=== PATIENT | female | born 1935 | race Caucasian/White ===

== ENCOUNTER 2017-01-23 08:50 | Outpatient (CLI) | payer MEDICARE ==
--- NOTE | 2017-01-23 10:02 | MMO ---
BILATERAL SCREENING MAMMOGRAMS: Date: 01/23/17 Comparison made to prior exams from 2016 and 2014. This patient's mammogram was interpreted with the assistance of computer-aided detection. FINDINGS: Scattered fibroglandular densities. Vascular calcifications. No evidence of mass or distortion. No i nterval change seen. Recommend one year follow-up. IMPRESSION: BIRADS 2: Benign Finding(s) POS: [facility]
== END 2017-01-23 08:51 | disposition home or self-care (01) ==
LOC: MAMMO 08:50
PROVIDERS: ATTEND Internal Medicine
DX: Z12.31 Encounter for screening mammogram for malignant neoplasm of breast (principal)
CPT/HCPCS: 77067; G0202

== ENCOUNTER 2017-08-09 12:45 | Outpatient (CLI) | payer MEDICARE ==
--- NOTE | 2017-08-09 14:58 | CT ---
HIGH RESOLUTION CHEST CT: History: Abnormal chest radiograph. Evaluate for lung disease. Comparison: None. Technique: Supine and prone views of the chest were performed utilizing a high resolution protocol. FINDINGS: Visualized mediastinum is unremarkable. Small amount of pericardial fluid. Heart size upper normal. A therosclerosis of the aorta and pulmonary arteries identified. Visualized upper solid organs are unremarkable. Patchy ground glass opacities throughout the lung parenchyma. Septal thickening is noted throughout t he lung parenchyma. Bronchiectasis in both lower lobes and the right upper lobe is identified. No def inite suspicious masses, pneumothorax or pleural effusion. Visualized trachea and central bronchi are patent. IMPRESSION: Patchy ground glass opacities, septal thickening and bronchiectasis. There is evidence for pulmonary fibrosis. POS: [facility]
== END 2017-08-09 12:46 | disposition home or self-care (01) ==
LOC: CT 12:45
PROVIDERS: ATTEND Internal Medicine
DX: J84.9 Interstitial pulmonary disease, unspecified (principal); J84.10 Pulmonary fibrosis, unspecified; R91.8 Other nonspecific abnormal finding of lung field; J47.9 Bronchiectasis, uncomplicated; J98.4 Other disorders of lung
CPT/HCPCS: 71250; 94060; 94727; 94729

== ENCOUNTER 2017-10-09 12:39 | Inpatient (IN) | payer MEDICARE ==
[2017-10-09] MEDS ORDERED: Fentanyl 100 MCG/2 ML VIAL ONE (13:05)
[2017-10-09 13:35] LABS: Bilirubin Negative (Negative); Blood, Urine Large (Negative); Clarity CLOUDY (Clear); Glucose, Urine (Dipstick) Negative (Negative); Leukocyte Large (Negative); Nitrite Positive (Negative); Protein, Urine (Dipstick) 30 mg/dL (Neg-Trace); Specific Gravity, Urine 1.018 (1.002-1.036); Urobilinogen 0.2 mg/dL (0.2-1.0); pH, Urine 5.5 (5.0-9.0)
[2017-10-09 13:38] LABS: Bacteria/HPF 4+ HPF (None Seen); Hyaline Casts/LPF 0-3 HYALINE CAST LPF (0-3 Hyaline); Squamous Epithelial 0-3 HPF (0-3)
[2017-10-09 13:46] LABS: #Basophils 0.1 thou/uL (0.0-0.2); #Eosinphils 0.4 thou/uL (0.0-0.7); #Lymphocytes 1.3 thou/uL (1.20-3.40); #Monocytes 0.8 thou/uL (0.11-0.59); %Basophils 0.4 % (0.0-1.0); %Eosinophils 3.8 % (0.0-10.0); %Lymphocytes 10.9 % (21.0-51.0); %Monocytes 6.6 % (0.0-10.0); %Neutrophils 78.2 % (42.0-75.0); Hemoglobin 11.2 g/dL (12.0-16.0); Mean Corpuscular HGB CONC 33.3 g/dL (32.0-36.0); Mean Corpuscular Hemoglobin 33.4 pg (27.0-31.0); Mean Platelet Volume 6.8 fL (7.4-10.4); Platelet Count 501 thou/uL (130-400); RBC Distribution Width 12.1 % (11.5-14.5); Red Blood Cell (RBC) Count 3.35 mill/uL (4.20-5.40); White Blood Cell (WBC) Count 11.5 thou/uL (4.8-10.8)
[2017-10-09 13:57] LABS: Prothrombin Time 61.7 SEC (12.0-14.7)
[2017-10-09 14:00] LABS: INR-International Normal Ratio 7.2
[2017-10-09 14:01] LABS: PTT 120.5 SEC (22.9-36.1)
[2017-10-09 14:10] LABS: ALT (SGPT) 28 U/L (8-55); AST (SGOT) 17 U/L (5-34); Albumin 3.7 g/dL (3.4-4.8); Alkaline Phosphatase 84 U/L (40-150); Anion Gap 16 mmol/L (10-20); BUN (Urea Nitrogen) 90 mg/dL (9.8-20.1); Bilirubin, Total 0.3 mg/dL (0.2-1.2); CK (CPK) 23 U/L (29-168); Calc. Creatinine Clearance 0 mL/min (70-130); Calcium 9.6 mg/dL (7.8-10.44); Carbon Dioxide 27 mmol/L (23-31); Chloride 96 mmol/L (98-107); Estimated GFR-MDRD 22; Globulin 4.4 g/dL (2.4-3.5); Glucose 117 mg/dL (83-110); Lipase 35 U/L (8-78); Potassium 3.8 mmol/L (3.5-5.1); Protein, Total 8.1 g/dL (6.0-8.3); Sodium 135 mmol/L (136-145)
[2017-10-09 14:14] LABS: CKMB 0.4 ng/mL (0-6.6); Troponin I 0.014 ng/mL (< 0.028)
--- NOTE | 2017-10-09 14:21 | RAD ---
PORTABLE CHEST ONE VIEW: Date: 10-09-17 Time: 1:10 p.m. History: Fall, injury. Chest pain. FINDINGS/IMPRESSION: Comparison is made with exam of 06-14-12. The heart is enlarged. The aorta is tortuous. The lungs are well expanded with chronic changes. There is no lobar consolidation, pneumothoraces, kenia pulmonary edema or pleural effusions are seen. POS: [facility]
[2017-10-09] MEDS ORDERED: Meropenem 1 GM in Sodium Chloride 0.9% 100 ML IVPB SCH ×2 (15:45→22:00)
--- NOTE | 2017-10-09 15:56 | CT ---
CT CHEST AND ABDOMEN AND PELVIS WITHOUT CONTRAST: Date: 10/09/17 Multiple axial tomograms obtained through chest, abdomen, and pelvis. Trauma protocol was followed. I V contrast was held due to renal status. INDICATION: Trauma. Fall with injury to chest, abdomen, and back. FINDINGS: CT CHEST: Chronic lung parenchymal changes are noted. There is hyperexpansion. There are bullous changes. Inter stitial thickening is seen in the periphery of both lungs and there is chronic fibrotic stranding. No pneumothorax, effusion, or focal infiltrate seen. Mediastinum is unremarkable. Review of the pneumot horax shows evidence of old, healed right rib fractures, both anteriorly and posteriorly. There are several left anterior rib fractures which appear acute. There appear to be subtle fractures involving the anterior left third, fourth, and fifth ribs. IMPRESSION: 1. Evidence of acute or subacute fractures involving the anterior left third, fourth, and fifth ribs . 2. Chronic lung parenchymal changes as described. CT ABDOMEN AND PELVIS: Liver, spleen, and pancreas are unremarkable. Adrenal glands and kidneys unremarkable. Bowel loops un remarkable. Large amount of stool throughout the colon. Prominent stool in the rectum may represent c onstipation or impaction. Urinary bladder is distended and unremarkable. Aorta is normal caliber. No free fluid or blood in the abdomen. Prominent stool in the rectum is seen with rectal dimension measured at over 5.0 cm. There is mild mu ral thickening at the rectosigmoid and there is surrounding fat stranding which may represent inflamm ation. This could represent stercoral colitis. IMPRESSION: No acute intra-abdominal injury. Prominent stool throughout the rectum. There is mural thickening and surrounding fat inflammatory change at the rectosigmoid. Large amount of stool in dilated rectum. St ercoral colitis should be considered. CT THORACIC AND LUMBAR SPINE: Thoracic and lumbar vertebra maintain height and alignment. Mild chronic appearing wedging is seen in the thoracic spine. There is no evidence of acute compression deformity or fracture. IMPRESSION: No evidence of acute thoracic or lumbar vertebral fracture. POS: [facility]
[2017-10-09] MEDS ORDERED: Bisacodyl 5 MG TAB PO PRN (16:17)
[2017-10-09] MEDS ORDERED: Mag-Al 1200 mg/1200 mg/30 ML UDCUP PO PRN (16:17)
[2017-10-09] MEDS ORDERED: HYDROcodone/Acetaminophen 5/325 mg Tablet PO PRN (16:17)
[2017-10-09] MEDS ORDERED: Milk Of Magnesia 30 ML UDCUP PO PRN (16:17)
[2017-10-09] MEDS ORDERED: Senokot 8.6 MG TAB PO PRN (16:17)
[2017-10-09] MEDS ORDERED: Calcium Carbonate 500 MG ChewTAB PO PRN (16:17)
[2017-10-09] MEDS ORDERED: Ondansetron HCl/PF 4 MG/2 ML Vial IVP PRN (16:18)
[2017-10-09] MEDS ORDERED: Benzonatate 100 MG CAP PO PRN (16:18)
[2017-10-09] MEDS ORDERED: Diabetic Tussin 200 MG/10 ML UDCUP PO PRN (16:18)
[2017-10-09] MEDS ORDERED: hydrALAZINE 20 MG/ML VIAL SLOW IVP PRN (16:18)
[2017-10-09] MEDS ORDERED: Loratadine 10 MG TAB PO PRN (16:18)
[2017-10-09] MEDS ORDERED: traMADol HCl 50 MG TAB PO PRN (16:18)
[2017-10-09] MEDS ORDERED: Nitroglycerin 0.4 MG TAB (25 Tab Bottle) SL PRN (16:18)
--- NOTE | 2017-10-09 17:14 | CT ---
CT BRAIN WITHOUT CONTRAST: HISTORY: Fall. Trauma. Patient on Coumadin. COMPARISON: CT brain from 08/17/2016. FINDINGS: No acute territorial infarct or hemorrhage. No midline shift or mass effect. Ventricular size and e xtraaxial CSF spaces are normal for age. The calvarium is intact. The paranasal sinuses and mastoids are relatively clear. IMPRESSION: No acute post traumatic intracranial sequelae. POS: [facility]
--- NOTE | 2017-10-09 17:15 | HP ---
PRIMARY CARE PHYSICIAN: Dr. Pedro Saucedo. CHIEF COMPLAINT: Generalized weakness with constipation. HISTORY OF PRESENTING ILLNESS: Ms. Singleton is an 81-year-old female with past medical history of c hronic atrial fibrillation, status post ablation who is on Coumadin, as well as hypertension, dyslipi demia, and anxiety who presented to the emergency room with the above-mentioned complaint. History i s mainly obtained by the patient herself and electronic medical records have been reviewed. Case has been discussed with admitting ER physician, Dr. Flores. Areli reports that normally she is able to take care of herself and is quite independent; however, she fell 2 weeks ago. She does not really remember how she fell and cannot tell me if she passed out or not. She reported that she was down f or about an hour or half before she was able to call for help. She has been having right-sided ribca ge pain since then. She reports that she had one or two episodes of vomiting one day before the epis ode of falling. She has no fever, chills, chest pain. She is chronically short of breath and is und er the care of associate relations specialist, Dr. Moses and was told that she has pulmonary fibrosis. She denies a ny cough. She does report that she had severe constipation for which she took a bunch of laxatives a nd had episodes of diarrhea a few days ago. She has slowly been getting better. She is on Coumadin for her chronic atrial fibrillation and went to the [facility] today and was sent to the emergency room because it was very high. Upon presentation to the emergency room, her INR was found to be 7.2. Her hemoglobin was stable at 1 1.2 and she does not have any overt bleed. Her serum chemistries were consistent with acute renal in sufficiency with BUN of 90, creatinine of 2.16. Her cardiac enzymes and lactic acid was unremarkable . BNP was normal. Urinalysis suggestive of significant urinary tract infection. She was given IV f luids and IV antibiotics. A chest x-ray and CT scan of the chest, abdomen, and pelvis was done. The findings are consistent with constipation as well as left-sided third, fourth, and fifth rib fractur es. She does not have any evidence of intraabdominal bleed, pneumothorax or hemothorax. She is quit e hypertensive in the emergency room. Otherwise, she is being admitted to the hospital for suprather apeutic INR as well as urinary tract infection. PAST MEDICAL HISTORY: 1. Hypertension. 2. Dyslipidemia. 3. Chronic paroxysmal atrial fibrillation, status post ablation at least 3 times per the patient. 4. Anxiety. PAST SURGICAL HISTORY: 1. Rotator cuff surgery. 2. Hysterectomy. 3. Cataract surgery. 4. Radiofrequency ablation. ALLERGIES: ADHESIVE TAPE. CURRENT MEDICATIONS: Further need to be confirmed, but as per the ER record, she takes clonidine 0.1 mg daily and lisinopril 20 mg b.i.d. CODE STATUS: FULL CODE. Discussed with the patient in detail. FAMILY HISTORY: Significant for coronary artery disease. SOCIAL HISTORY: The patient lives alone and is independent, but according to her daughters present i n the room, she is not very active. She has no history of drug, tobacco or alcohol abuse. REVIEW OF SYSTEMS: A 12-point review of systems was done and it is negative except for those mention ed in the history and physical. LABORATORY DATA AND IMAGING DATA: CBC showed WBCs at 11.5, hemoglobin 11.2 with baseline hemoglobin around 12-13, platelet count 501, neutrophils 78%, INR 7.2, PTT 120. Serum chemistry: Sodium 135, c hloride 96, BUN 19, creatinine 2.16, blood sugar 117. Creatinine kinase is 23. Lipase normal. Card iac enzymes normal. Lactic acid normal. Urinalysis shows multiple wbc's and bacteria among others. CT scan of the chest, abdomen, and pelvis shows left-sided rib fractures and significant amount of s tool in the colon, otherwise no acute changes. Chest x-ray by my review has no evidence of pleural e ffusion, edema or infiltrate. Twelve lead EKG by my review shows normal sinus rhythm at 71 beats per minute without any acute ST or T-wave changes. PHYSICAL EXAMINATION: VITAL SIGNS: Upon presentation, blood pressure 156/65, pulse of 77, saturating 93% on room air, resp irations 16 and temperature 98.1. GENERAL: She has no acute distress, appears stated age and frail. Daughters are present at bedside. HEENT: Mucous membranes are slightly dry. No oropharyngeal exudate or erythema. Head is normocepha lic, atraumatic. Pupils are equal and reactive to light and accommodation. Extraocular movement int act. NECK: Supple without any lymphadenopathy, JVD or bruit. CHEST: Clear to auscultation without any wheezing, rales or rhonchi. Rhythm is regular without any murmur, rubs or gallops. She is tender to palpation in the left anterior chest. ABDOMEN: Soft, nontender, nondistended with positive bowel sounds. EXTREMITIES: Free of any cyanosis, clubbing, or edema. NEUROLOGIC: Examination is nonfocal. SKIN: Free of any rashes or bruises. PSYCHIATRIC: Anxiety noticed. IMPRESSION AND PLAN: 1. Sepsis secondary to urinary tract infection. The patient will be admitted to the hospital on IV antibiotics. We will start her on IV fluids. Blood cultures have been obtained. We will also obtai n culture of the urine and adjust antibiotics based on the sensitivity. She has received meropenem i n the emergency room and we will continue the same. 2. Acute renal insufficiency secondary to ongoing diarrhea, poor p.o. intake and dehydration. We wi ll hold her lisinopril for now and start her on IV fluids and avoid any nephrotoxic medications. 3. Uncontrolled hypertension. The patient's blood pressure has shot up to systolic 190s over diasto lic of 100s. She will be started back on her home medications once confirmed and meanwhile we will u se p.r.n. antihypertensives. 3. Supratherapeutic INR. We will hold the Coumadin for now and monitor INR on a daily basis. No ev idence of overt bleed at this time. 4. Fall. We will also check a head CT to rule out any bleed, but that has happened about 2 weeks ag o. The patient is asymptomatic. 5. Rib fractures, medical management. 6. Hypertension, as above. Resume home medications. 7. History of chronic paroxysmal atrial fibrillation, currently normal sinus rhythm and status post ablation. Hold her Coumadin for obvious reasons. Restart rest of the medications as permitted and o nce confirmed 8. Code status: FULL CODE. Discussed with the patient. 9. Deep venous thrombosis and gastrointestinal prophylaxis in the form of sequential compression dev ices and Pepcid b.i.d. Add p.r.n. medication orders. DISPOSITION: Ms. Singleton is currently being admitted to hospital for sepsis, supratherapeutic INR and acute renal insufficiency after she has sustained a fall 2 weeks ago. Estimated length of stay a t least 2-3 midnights. Further management will depend upon her clinical course.
[2017-10-09 19:53] VITALS: BMI 22.9
[2017-10-09] MEDS: Sodium Chloride 0.9% 1,000 ML IV SCH (20:59)
[2017-10-09] MEDS: Docusate 100 MG CAP PO SCH (21:00)
[2017-10-09] MEDS: Famotidine 20 MG TAB PO SCH (21:00)
[2017-10-09] MEDS: cloNIDine 0.1 MG TAB PO PRN (21:01)
[2017-10-09] MEDS: Acetaminophen 325 MG TAB PO PRN (21:07)
[2017-10-10] MEDS: Meropenem 500 MG in Sodium Chloride 0.9% 100 ML IVPB SCH ×2 (03:02→16:46)
[2017-10-10] MEDS: Acetaminophen 325 MG TAB PO PRN ×4 (03:02→21:24)
[2017-10-10] MEDS: Sodium Chloride 0.9% 1,000 ML IV SCH ×2 (03:07→21:20)
[2017-10-10 05:12] LABS: #Basophils 0.1 thou/uL (0.0-0.2); #Eosinphils 0.5 thou/uL (0.0-0.7); #Lymphocytes 1.7 thou/uL (1.20-3.40); #Neutrophils 5.4 thou/uL (1.40-6.50); %Basophils 0.9 % (0.0-1.0); %Eosinophils 6.1 % (0.0-10.0); %Lymphocytes 19.6 % (21.0-51.0); %Monocytes 11.7 % (0.0-10.0); %Neutrophils 61.7 % (42.0-75.0); Hemoglobin 10.3 g/dL (12.0-16.0); Mean Corpuscular HGB CONC 33.7 g/dL (32.0-36.0); Mean Corpuscular Hemoglobin 33.7 pg (27.0-31.0); Mean Corpuscular Volume 99.9 fL (78.0-98.0); Mean Platelet Volume 6.7 fL (7.4-10.4); Platelet Count 452 thou/uL (130-400); RBC Distribution Width 12.2 % (11.5-14.5); Red Blood Cell (RBC) Count 3.05 mill/uL (4.20-5.40); White Blood Cell (WBC) Count 8.8 thou/uL (4.8-10.8)
[2017-10-10 05:16] LABS: Prothrombin Time 56.8 SEC (12.0-14.7)
[2017-10-10 05:20] LABS: INR-International Normal Ratio 6.5
[2017-10-10 05:32] LABS: Anion Gap 14 mmol/L (10-20); BUN (Urea Nitrogen) 68 mg/dL (9.8-20.1); Calc. Creatinine Clearance 25 mL/min (70-130); Calcium 8.9 mg/dL (7.8-10.44); Carbon Dioxide 25 mmol/L (23-31); Chloride 101 mmol/L (98-107); Estimated GFR-MDRD 29; Glucose 84 mg/dL (83-110); Potassium 3.6 mmol/L (3.5-5.1); Sodium 136 mmol/L (136-145)
[2017-10-10] MEDS ORDERED: Prevnar 13-Val Conj/PF 0.5 ML SYRINGE IM ONE (09:00)
[2017-10-10] MEDS ORDERED: cloNIDine 0.1 MG TAB PO PRN (09:04)
[2017-10-10] MEDS: cloNIDine 0.1 MG TAB PO PRN (10:08)
[2017-10-10] MEDS: Docusate 100 MG CAP PO SCH ×2 (13:02→21:22)
[2017-10-10] MEDS ORDERED: diphenhydrAMINE 25 MG CAP PO PRN (13:38)
[2017-10-10] MEDS ORDERED: Melatonin 3 MG TAB PO PRN (13:38)
--- NOTE | 2017-10-10 13:41 | PDOC.PN ---
- Subjective Encounter Start Date: 10/10/17 Encounter Start Time: 13:40 Subjective: feels much better.eating better . still constipated.no SOB/CP/ palpiations - Objective MAR Reviewed: Yes Vital Signs & Weight: Vital Signs (12 hours) Temp Pulse Resp BP Pulse Ox 10/10/17 07:32 98.1 F 69 16 174/68 H 99 10/10/17 03:45 98.2 F 64 17 131/63 96 Weight Weight 136 lb 12.8 oz I&O: 10/09/17 10/10/17 10/11/17 06:59 06:59 06:59 Intake Total 1800 Output Total 900 Balance 900 Result Diagrams: 10/10/17 04:43 10/10/17 04:43 Additional Labs: Microbiology 10/09/17 13:39 Venous blood - Right Hand Blood Culture - Preliminary Specimen has been received and culture in progress. No Growth to date. 10/09/17 13:38 Venous blood - Right Arm Blood Culture - Preliminary Specimen has been received and culture in progress. No Growth to date. 10/09/17 13:11 Urine clean catch Urine Culture - Preliminary Escherichia coli Laboratory Tests 10/09/17 10/09/17 10/10/17 13:38 13:39 04:43 INR 7.2 H* 6.5 H* Creatinine 2.16 H 10/10/17 04:43 INR Creatinine 1.70 H labs reviewed Phys Exam - Physical Examination Constitutional: NAD HEENT: PERRLA, moist MMs, sclera anicteric, oral pharynx no lesions Neck: no nodes, no JVD, supple, full ROM Respiratory: no wheezing, no rales, no rhonchi, wheezing present, clear to auscultation bilateral Cardiovascular: RRR, no significant murmur, no rub Gastrointestinal: soft, non-tender, no distention, positive bowel sounds Musculoskeletal: no edema, pulses present Neurological: non-focal, normal sensation, moves all 4 limbs Psychiatric: normal affect, A&O x 3 Skin: no rash Dx/Plan (1) Sepsis Code(s): A41.9 - SEPSIS, UNSPECIFIED ORGANISM Status: Acute (2) UTI (urinary tract infection) Status: Acute (3) RAFA (acute kidney injury) Code(s): N17.9 - ACUTE KIDNEY FAILURE, UNSPECIFIED Status: Acute (4) Supratherapeutic INR Code(s): R79.1 - ABNORMAL COAGULATION PROFILE Status: Acute (5) Atrial fibrillation Code(s): I48.91 - UNSPECIFIED ATRIAL FIBRILLATION Status: Chronic (6) Benign hypertension Code(s): I10 - ESSENTIAL (PRIMARY) HYPERTENSION Status: Chronic (7) Dyslipidemia Code(s): E78.5 - HYPERLIPIDEMIA, UNSPECIFIED Status: Chronic (8) Osteopenia Code(s): M85.80 - OTH DISRD OF BONE DENSITY AND STRUCTURE, UNSPECIFIED SITE Status: Chronic (9) Seizure disorder Code(s): G40.909 - EPILEPSY, UNSP, NOT INTRACTABLE, WITHOUT STATUS EPILEPTICUS Status: Chronic (10) Fall at home Code(s): W19.XXXA - UNSPECIFIED FALL, INITIAL ENCOUNTER; Y92.009 - UNSP PLACE IN [facility] RESIDENCE [facility] Status: Acute (11) Closed rib fracture Code(s): S22.39XA - FRACTURE OF ONE RIB, UNSP SIDE, INIT FOR CLOS FX Status: Acute Qualifiers: Encounter type: initial encounter Laterality: right - Plan continue antibiotics, PT/OT, out of bed/ambulate, DVT proph w/SCDs INR improving. cont to monitor daily.Cont to hold coumadin for now -: cont empric ABx .E.coli on prelim urine Cx -: renal Fx improving. cont IVF.SRIKANTH-I and HCTZ on hold -: restart coreg,amlodipine & clinidine .BP high.monitor -: OT,PT.tele monitoring.unclear if syncope or not * . Review of Systems - Review of Systems Constitutional: weakness. negative: fever, chills, sweats, malaise, other Respiratory: negative: Cough, Dry, Shortness of Breath, Hemoptysis, SOB with Excertion, Pleuritic Pain, Sputum, Wheezing Cardiovascular: negative: chest pain, palpitations, orthopnea, paroxysmal nocturnal dyspnea, edema, light headedness, other Gastrointestinal: negative: Nausea, Vomiting, Abdominal Pain, Diarrhea, Constipation, Melena, Hematochezia, Other Genitourinary: negative: Dysuria, Frequency, Incontinence, Hematuria, Retention , Other Musculoskeletal: negative: Neck Pain, Shoulder Pain, Arm Pain, Back Pain, Hand Pain, Leg Pain, Foot Pain, Other Skin: negative: Rash, Lesions, Jonas, Bruising, Other Neurological: negative: Weakness, Numbness, Incoordination, Change in Speech, Confusion, Seizures, Other - Medications/Allergies Allergies/Adverse Reactions: Allergies Allergy/AdvReac Type Severity Reaction Status Date / Time adhesive Allergy Verified 10/09/17 21:56 Medications: Current Medications Acetaminophen (Tylenol) 650 mg PO Q4H PRN PRN Reason: Headache/Fever or Pain Last Admin: 10/10/17 10:08 Dose: 650 mg Hydrocodone Bitart/Acetaminophen (Grace 5/325) 1 tab PO Q4H PRN PRN Reason: Moderate Pain (4-6) Al Hydroxide/Mg Hydroxide (Maalox) 30 ml PO Q6H PRN PRN Reason: Heartburn or Indigestion Alprazolam (Xanax) 0.25 mg PO PRN PRN PRN Reason: Anxiety Amlodipine Besylate (Norvasc) 10 mg PO QPM [facility] Atorvastatin Calcium (Lipitor) 40 mg PO HS [facility] Benzonatate (Tessalon) 100 mg PO Q4H PRN PRN Reason: Cough Bisacodyl (Dulcolax) 10 mg PO DAILYPRN PRN PRN Reason: Constipation Calcium Carbonate (Tums) 1,000 mg PO Q4H PRN PRN Reason: Heartburn or Indigestion Carvedilol (Coreg) 25 mg PO BID [facility] Cholecalciferol (Vitamin D3) 2,000 units PO DAILY [facility] Clonidine (Catapres) 0.1 mg PO Q4H PRN PRN Reason: Systolic BP > 160 Last Admin: 10/10/17 10:08 Dose: 0.1 mg Clonidine (Catapres) 0.1 mg PO Q6H PRN PRN Reason: Hypertension Diphenhydramine HCl (Benadryl) 25 mg PO HSPRN PRN PRN Reason: Insomnia Docusate Sodium (Colace) 100 mg PO BID [facility] Last Admin: 10/10/17 13:02 Dose: Not Given Famotidine (Pepcid) 20 mg PO Q24HR [facility] Last Admin: 10/09/17 21:00 Dose: 20 mg Fish Oil (Fish Oil) 1,000 mg PO BID [facility] Guaifenesin (Robitussin Sf) 200 mg PO Q4H PRN PRN Reason: Cough Hydralazine HCl (Apresoline) 10 mg SLOW IVP Q4H PRN PRN Reason: Systolic BP > 170 Sodium Chloride (Normal Saline 0.9%) 1,000 mls @ 75 mls/hr IV .[id number] [facility] Last Admin: 10/10/17 03:07 Dose: Not Given Meropenem 500 mg/ Sodium (Chloride) 100 mls @ 200 mls/hr IVPB 0400,1600 [facility] Last Admin: 10/10/17 03:02 Dose: 100 mls Lactulose (Lactulose) 20 gm PO DAILYPRN PRN PRN Reason: Constipation Lactulose (Lactulose) 20 gm PO NOW [facility] Stop: 10/10/17 14:00 Last Admin: 10/10/17 13:10 Dose: 20 gm Loratadine (Claritin) 10 mg PO DAILYPRN PRN PRN Reason: Sinus Symptoms Magnesium Hydroxide (Milk Of Magnesium) 30 ml PO DAILYPRN PRN PRN Reason: Constipation Melatonin (Melatonin) 3 mg PO HS PRN PRN Reason: Insomnia Nitroglycerin (Nitrostat) 0.4 mg SL Q5MIN PRN PRN Reason: Chest Pain Ondansetron HCl (Zofran) 4 mg IVP Q6H PRN PRN Reason: Nausea/Vomiting Phenobarbital (Phenobarbital) 64.8 mg PO DAILY [facility] Senna (Senokot) 2 tab PO HSPRN PRN PRN Reason: Constipation Tramadol HCl (Ultram) 50 mg PO Q4H PRN PRN Reason: Moderate Pain (4-6)
[2017-10-10] MEDS: Carvedilol 25 MG TAB PO SCH (21:22)
[2017-10-10] MEDS: Amlodipine 10 MG TAB PO SCH (21:22)
[2017-10-10] MEDS: Atorvastatin Calcium 40 MG TAB PO SCH (21:22)
[2017-10-10] MEDS: Famotidine 20 MG TAB PO SCH (21:22)
[2017-10-10] MEDS: ALPRAZolam 0.25 MG TAB PO PRN (21:24)
[2017-10-11] MEDS: Meropenem 500 MG in Sodium Chloride 0.9% 100 ML IVPB SCH ×2 (03:57→16:59)
[2017-10-11 05:38] LABS: #Basophils 0.1 thou/uL (0.0-0.2); #Eosinphils 0.5 thou/uL (0.0-0.7); #Lymphocytes 1.3 thou/uL (1.20-3.40); #Monocytes 0.8 thou/uL (0.11-0.59); #Neutrophils 5.3 thou/uL (1.40-6.50); %Eosinophils 6.2 % (0.0-10.0); %Lymphocytes 15.9 % (21.0-51.0); %Monocytes 10.4 % (0.0-10.0); %Neutrophils 66.5 % (42.0-75.0); Hemoglobin 10.2 g/dL (12.0-16.0); Mean Corpuscular HGB CONC 33.6 g/dL (32.0-36.0); Mean Corpuscular Hemoglobin 34.9 pg (27.0-31.0); Mean Platelet Volume 7.4 fL (7.4-10.4); Platelet Count 449 thou/uL (130-400); RBC Distribution Width 12.6 % (11.5-14.5); Red Blood Cell (RBC) Count 2.91 mill/uL (4.20-5.40); White Blood Cell (WBC) Count 7.9 thou/uL (4.8-10.8)
[2017-10-11 05:46] LABS: Prothrombin Time 40.8 SEC (12.0-14.7)
[2017-10-11 05:51] LABS: Anion Gap 14 mmol/L (10-20); BUN (Urea Nitrogen) 39 mg/dL (9.8-20.1); Calc. Creatinine Clearance 34 mL/min (70-130); Calcium 8.4 mg/dL (7.8-10.44); Carbon Dioxide 21 mmol/L (23-31); Chloride 105 mmol/L (98-107); Estimated GFR-MDRD 41; Glucose 87 mg/dL (83-110); Potassium 3.8 mmol/L (3.5-5.1); Sodium 136 mmol/L (136-145)
[2017-10-11 05:56] LABS: INR-International Normal Ratio 4.3
[2017-10-11] MEDS: cloNIDine 0.1 MG TAB PO PRN ×2 (08:52→16:59)
[2017-10-11] MEDS: Fish Oil 1,000 MG CAP PO SCH ×2 (08:52→20:46)
[2017-10-11] MEDS: Carvedilol 25 MG TAB PO SCH ×2 (08:53→20:46)
[2017-10-11] MEDS: ALPRAZolam 0.25 MG TAB PO PRN (08:53)
[2017-10-11] MEDS: Docusate 100 MG CAP PO SCH ×2 (08:57→20:46)
[2017-10-11] MEDS ORDERED: PHENobarbital 32.4 MG TAB PO SCH ×2 (09:00→21:00)
[2017-10-11] MEDS: Sodium Chloride 0.9% 1,000 ML IV SCH ×2 (10:42→21:11)
--- NOTE | 2017-10-11 14:29 | PDOC.PN ---
- Subjective Encounter Start Date: 10/11/17 Encounter Start Time: 14:27 Subjective: feels much better.had lots of stools yesterday and feels better now -: no AP,no N/V.no CP/SOB -: no fever/chills - Objective MAR Reviewed: Yes Vital Signs & Weight: Vital Signs (12 hours) Temp Pulse Pulse Pulse Resp BP BP 10/11/17 11:52 99.1 F 68 16 10/11/17 09:00 98.7 F 86 18 10/11/17 08:00 98.7 F 86 18 10/11/17 07:42 74 95 225/85 H 217/88 H 10/11/17 03:55 98.3 F 72 20 BP Pulse Ox 10/11/17 11:52 141/63 H 96 10/11/17 09:00 95 10/11/17 08:00 175/73 H 95 10/11/17 07:42 10/11/17 03:55 143/66 H 93 L Weight Weight 136 lb 1.6 oz I&O: 10/10/17 10/11/17 10/12/17 06:59 06:59 06:59 Intake Total 1800 1077 Output Total 900 1301 Balance 900 -224 Result Diagrams: 10/11/17 05:07 10/11/17 05:07 Additional Labs: Microbiology 10/09/17 13:39 Venous blood - Right Hand Blood Culture - Preliminary Specimen has been received and culture in progress. No Growth to date. 10/09/17 13:38 Venous blood - Right Arm Blood Culture - Preliminary Specimen has been received and culture in progress. No Growth to date. 10/09/17 13:11 Urine clean catch Urine Culture - Preliminary Escherichia coli labs reviewed Phys Exam - Physical Examination Constitutional: NAD HEENT: PERRLA, moist MMs, sclera anicteric, oral pharynx no lesions Neck: no nodes, no JVD, supple, full ROM Respiratory: no wheezing, no rales, no rhonchi, clear to auscultation bilateral Cardiovascular: RRR, no significant murmur, no rub Gastrointestinal: soft, non-tender, no distention, positive bowel sounds Musculoskeletal: no edema, pulses present Neurological: non-focal, normal sensation, moves all 4 limbs Psychiatric: normal affect, A&O x 3 Skin: no rash Dx/Plan (1) Sepsis Code(s): A41.9 - SEPSIS, UNSPECIFIED ORGANISM Status: Acute (2) UTI (urinary tract infection) Status: Acute Comment: E.Coli (3) RAFA (acute kidney injury) Code(s): N17.9 - ACUTE KIDNEY FAILURE, UNSPECIFIED Status: Acute (4) Supratherapeutic INR Code(s): R79.1 - ABNORMAL COAGULATION PROFILE Status: Acute (5) Atrial fibrillation Code(s): I48.91 - UNSPECIFIED ATRIAL FIBRILLATION Status: Chronic (6) Benign hypertension Code(s): I10 - ESSENTIAL (PRIMARY) HYPERTENSION Status: Chronic (7) Dyslipidemia Code(s): E78.5 - HYPERLIPIDEMIA, UNSPECIFIED Status: Chronic (8) Osteopenia Code(s): M85.80 - [facility] DISRD OF BONE DENSITY AND STRUCTURE, UNSPECIFIED SITE Status: Chronic (9) Seizure disorder Code(s): G40.909 - EPILEPSY, UNSP, NOT INTRACTABLE, WITHOUT STATUS EPILEPTICUS Status: Chronic (10) Fall at home Code(s): W19.XXXA - UNSPECIFIED FALL, INITIAL ENCOUNTER; Y92.009 - UNSP PLACE IN [facility] NON[facility] RES[facility]ENCE PLACE Status: Acute (11) Closed rib fracture Code(s): S22.39XA - FRACTURE OF ONE RIB, UNSP SIDE, INIT FOR CLOS FX Status: Acute Qualifiers: Encounter type: initial encounter Laterality: right - Plan plan discussed w/ family, continue antibiotics, PT/OT, respiratory therapy, incentive spirometry, out of bed/ambulate, DVT proph w/SCDs renal Fx improving.cont gentle IVF.monitor -: cont empiric Abx, taper once senistivity is back. -: BP higher-holding SRIKANTH-I and HCTZ d/t RAFA.restart once RAFA resolves -: OT,PT.Rehab eval -: INR trending down.monitor.cont ot hold coumadin.am labs * . Review of Systems - Review of Systems Constitutional: negative: fever, chills, sweats, weakness, malaise, other Respiratory: negative: Cough, Dry, Shortness of Breath, Hemoptysis, SOB with Excertion, Pleuritic Pain, Sputum, Wheezing Cardiovascular: negative: chest pain, palpitations, orthopnea, paroxysmal nocturnal dyspnea, edema, light headedness, other Gastrointestinal: negative: Nausea, Vomiting, Abdominal Pain, Diarrhea, Constipation, Melena, Hematochezia, Other Genitourinary: negative: Dysuria, Frequency, Incontinence, Hematuria, Retention , Other Musculoskeletal: negative: Neck Pain, Shoulder Pain, Arm Pain, Back Pain, Hand Pain, Leg Pain, Foot Pain, Other Neurological: negative: Weakness, Numbness, Incoordination, Change in Speech, Confusion, Seizures, Other - Medications/Allergies Allergies/Adverse Reactions: Allergies Allergy/AdvReac Type Severity Reaction Status Date / Time adhesive Allergy Verified 10/09/17 21:56 Medications: Current Medications Acetaminophen (Tylenol) 650 mg PO Q4H PRN PRN Reason: Headache/Fever or Pain Last Admin: 10/10/17 21:24 Dose: 650 mg Hydrocodone Bitart/Acetaminophen (Ranchita 5/325) 1 tab PO Q4H PRN PRN Reason: Moderate Pain (4-6) Al Hydroxide/Mg Hydroxide (Maalox) 30 ml PO Q6H PRN PRN Reason: Heartburn or Indigestion Alprazolam (Xanax) 0.25 mg PO PRN PRN PRN Reason: Anxiety Last Admin: 10/11/17 08:53 Dose: 0.25 mg Amlodipine Besylate (Norvasc) 10 mg PO QPM [facility] Last Admin: 10/10/17 21:22 Dose: 10 mg Atorvastatin Calcium (Lipitor) 40 mg PO HS [facility] Last Admin: 10/10/17 21:22 Dose: 40 mg Benzonatate (Tessalon) 100 mg PO Q4H PRN PRN Reason: Cough Bisacodyl (Dulcolax) 10 mg PO DAILYPRN PRN PRN Reason: Constipation Calcium Carbonate (Tums) 1,000 mg PO Q4H PRN PRN Reason: Heartburn or Indigestion Carvedilol (Coreg) 25 mg PO BID [facility] Last Admin: 10/11/17 08:53 Dose: 25 mg Cholecalciferol (Vitamin D3) 2,000 units PO DAILY [facility] Last Admin: 10/11/17 08:53 Dose: 2,000 units Clonidine (Catapres) 0.1 mg PO Q4H PRN PRN Reason: Systolic BP > 160 Last Admin: 10/11/17 08:52 Dose: 0.1 mg Clonidine (Catapres) 0.1 mg PO Q6H PRN PRN Reason: Hypertension Last Admin: 10/10/17 16:46 Dose: 0.1 mg Diphenhydramine HCl (Benadryl) 25 mg PO HSPRN PRN PRN Reason: Insomnia Docusate Sodium (Colace) 100 mg PO BID [facility] Last Admin: 10/11/17 08:57 Dose: Not Given Famotidine (Pepcid) 20 mg PO Q24HR [facility] Last Admin: 10/10/17 21:22 Dose: 20 mg Fish Oil (Fish Oil) 1,000 mg PO BID [facility] Last Admin: 10/11/17 08:52 Dose: 1,000 mg Guaifenesin (Robitussin Sf) 200 mg PO Q4H PRN PRN Reason: Cough Hydralazine HCl (Apresoline) 10 mg SLOW IVP Q4H PRN PRN Reason: Systolic BP > 170 Sodium Chloride (Normal Saline 0.9%) 1,000 mls @ 75 mls/hr IV .[id number] [facility] Last Admin: 10/11/17 10:42 Dose: 1,000 mls Meropenem 500 mg/ Sodium (Chloride) 100 mls @ 200 mls/hr IVPB 0400,1600 [facility] Last Admin: 10/11/17 03:57 Dose: 100 mls Lactulose (Lactulose) 20 gm PO DAILYPRN PRN PRN Reason: Constipation Loratadine (Claritin) 10 mg PO DAILYPRN PRN PRN Reason: Sinus Symptoms Magnesium Hydroxide (Milk Of Magnesium) 30 ml PO DAILYPRN PRN PRN Reason: Constipation Melatonin (Melatonin) 3 mg PO HS PRN PRN Reason: Insomnia Nitroglycerin (Nitrostat) 0.4 mg SL Q5MIN PRN PRN Reason: Chest Pain Ondansetron HCl (Zofran) 4 mg IVP Q6H PRN PRN Reason: Nausea/Vomiting Phenobarbital (Phenobarbital) 64.8 mg PO DAILY [facility] Last Admin: 10/11/17 10:56 Dose: Not Given Senna (Senokot) 2 tab PO HSPRN PRN PRN Reason: Constipation Sodium Chloride (Flush - Normal Saline) 10 ml IVF Q12HR [facility] Last Admin: 10/11/17 08:57 Dose: 10 ml Sodium Chloride (Flush - Normal Saline) 10 ml IVF PRN PRN PRN Reason: Saline Flush Tramadol HCl (Ultram) 50 mg PO Q4H PRN PRN Reason: Moderate Pain (4-6)
[2017-10-11] MEDS: Amlodipine 10 MG TAB PO SCH (20:45)
[2017-10-11] MEDS: Famotidine 20 MG TAB PO SCH (20:46)
[2017-10-11] MEDS: Atorvastatin Calcium 40 MG TAB PO SCH (20:46)
[2017-10-11] MEDS: Acetaminophen 325 MG TAB PO PRN (20:46)
[2017-10-12 05:19] LABS: #Basophils 0.1 thou/uL (0.0-0.2); #Eosinphils 0.4 thou/uL (0.0-0.7); #Lymphocytes 1.9 thou/uL (1.20-3.40); #Neutrophils 4.4 thou/uL (1.40-6.50); %Eosinophils 4.7 % (0.0-10.0); %Lymphocytes 24.3 % (21.0-51.0); %Monocytes 12.5 % (0.0-10.0); %Neutrophils 57.5 % (42.0-75.0); Hemoglobin 9.6 g/dL (12.0-16.0); Mean Corpuscular HGB CONC 33.6 g/dL (32.0-36.0); Mean Platelet Volume 7.1 fL (7.4-10.4); Platelet Count 479 thou/uL (130-400); RBC Distribution Width 12.3 % (11.5-14.5); Red Blood Cell (RBC) Count 2.83 mill/uL (4.20-5.40); White Blood Cell (WBC) Count 7.6 thou/uL (4.8-10.8)
[2017-10-12 05:26] LABS: INR-International Normal Ratio 2.1; Prothrombin Time 23.4 SEC (12.0-14.7)
[2017-10-12 05:39] LABS: Anion Gap 11 mmol/L (10-20); BUN (Urea Nitrogen) 26 mg/dL (9.8-20.1); Calc. Creatinine Clearance 39 mL/min (70-130); Calcium 8.5 mg/dL (7.8-10.44); Carbon Dioxide 23 mmol/L (23-31); Chloride 109 mmol/L (98-107); Estimated GFR-MDRD 49; Glucose 96 mg/dL (83-110); Potassium 3.6 mmol/L (3.5-5.1); Sodium 139 mmol/L (136-145)
[2017-10-12] MEDS: Acetaminophen 325 MG TAB PO PRN ×2 (05:47→15:47)
[2017-10-12] MEDS ORDERED: Lisinopril 20 MG TAB PO SCH (09:00)
[2017-10-12] MEDS ORDERED: Cephalexin 250 MG/5 ML Oral Suspension PO SCH (09:00)
[2017-10-12] MEDS ORDERED: Aspirin 81 mg Enteric Coated Tablet PO SCH (09:00)
[2017-10-12] MEDS ORDERED: Cefdinir 300 MG CAP PO SCH (09:00)
[2017-10-12] MEDS: Carvedilol 25 MG TAB PO SCH (09:00)
[2017-10-12] MEDS: Fish Oil 1,000 MG CAP PO SCH (09:01)
[2017-10-12] MEDS: Docusate 100 MG CAP PO SCH (09:01)
[2017-10-12] MEDS ORDERED: Sodium Chloride 0.9% 1,000 ML IV SCH (09:09)
[2017-10-12] MEDS: ALPRAZolam 0.25 MG TAB PO PRN (11:47)
[2017-10-12 15:13] VITALS: BP 142/65; TEMP 98.1
--- NOTE | 2017-10-13 01:10 | DIS ---
DATE OF ADMISSION: 10/09/2017 DATE OF DISCHARGE: 10/12/2017 CONDITION AT THE TIME OF DISCHARGE: Stable and improved. DISCHARGE DISPOSITION: [facility] DISCHARGE DIAGNOSES: 1. Sepsis. 2. Urinary tract infection. 3. Acute renal insufficiency. 4. Severe dehydration. 5. Chronic atrial fibrillation, on chronic anticoagulation. 6. Supratherapeutic INR. 7. Hypertension. 8. Dyslipidemia. 9. Seizure disorder. 10. Closed rib fracture after sustaining a fall at home. DISCHARGE MEDICATIONS: Resume home medications as follows: Phenobarbital 64.8 mg daily, omega fish oil daily, clonidine 0.1 mg p.o. q.6 hours p.r.n., amlodipine 10 mg daily, lisinopril 20 mg daily, Co umadin 5 mg as directed at home dosages with daily PT/INR and H&H monitoring, Coreg 25 mg p.o. b.i.d. , atorvastatin 40 mg daily, aspirin 81 mg daily, vitamin D3 daily, Xanax p.r.n., melatonin 3 mg p.o. at bedtime p.r.n., Dulcolax p.r.n., Tums p.r.n., Tessalon Perles p.r.n., Maalox p.r.n., Tylenol p.r.n ., antibiotic levofloxacin 500 mg p.o. daily for 7 more days. PROCEDURES DONE IN THE HOSPITAL: Include; 1. CT scan of the chest, abdomen and pelvis in the emergency room which is negative for any acute in tra-abdominal injury. Prominent stool throughout the colon was seen and mild mural thickening and dubon rrounding fat inflammatory changes seen at the rectosigmoid likely stercoral colitis seen. 2. CT scan of the chest showed acute or subacute fractures in the anterior left third, fourth, and f ifth ribs. 3. CT scan of the brain upon presentation, which is negative for any acute hemorrhage or mass effect . PRIMARY CARE PHYSICIAN: Pedro Saucedo M.D. HISTORY OF PRESENTING ILLNESS: Ms. Singleton is a pleasant 81-year-old female, who had fallen about 2 weeks ago in her home, presented to the emergency room with complaints of generalized weakness and constipation. She has past medical history of chronic atrial fibrillation with multiple ablations in the past, who is on chronic anticoagulation with Coumadin. She went to the Coumadin clinic to get h er INR checked, which was found to be very high and she was sent to the emergency room. In the ER, h er INR was found to be 7.2. Her H&H was stable and she did not have any evidence of overt bleed. Ho wever, she had evidence of acute renal insufficiency with a creatinine of 2.16. Urinalysis suggested urinary tract infection. Otherwise, the markers of sepsis were negative. She was given IV fluids a nd IV antibiotics and was admitted for further evaluation and care. She did have evidence of rib fra cture on the left side as above on presentation. Please see admission history and physical for furth er details. HOSPITAL COURSE: Ms. Singleton had dramatic improvement with IV fluids and IV antibiotics. Her cult ures were sent. Urine culture did grow E. coli, which was resistant to ampicillin and sulbactam and sensitive to levofloxacin. Her antibiotics were adjusted according to the sensitivities. Blood cult ures were negative. Her renal insufficiency improved significantly and by the time of discharge, her creatinine was back to normal at 1.08. Her leukocytosis improved from 11.5-7.6. Her INR started to come down by withholding Coumadin. By the time of discharge, her INR this morning is 2.1. She was hemodynamically stable and was given option to discharge home with home health versus rehab a nd she wanted to go to a rehab where she lives alone. This was also discussed with the patient's fam cristopher and they were in agreement. The patient initially reported that she wanted to be a FULL CODE, but later changed her code status t o DO NOT RESUSCITATION. Out of hospital DNR was signed for the patient. She was accepted to rehab a nd now is being discharged in a stable condition. She will follow with primary care physician once s he gets out of the rehabilitation. She has been restarted on her Coumadin with daily PT/INR monitori ng in the rehab with H&H monitoring as well. She was seen and examined prior to discharge. PHYSICAL EXAMINATION: VITAL SIGNS: This morning, temperature 98.2, heart rate 73, respirations 18, saturating 98% on room air, blood pressure 144/63. GENERAL: No acute distress, awake, alert, and oriented x3. CHEST: Clear to auscultation without any wheezing, rales or rhonchi. CARDIOVASCULAR: Rate and rhythm is regular without any murmur, rubs or gallops. She is walking around in the hallways with the help of the family and physical therapy. Palliative c are team has also seen her with helping the DNR out of hospital form signatures. Total time spent in the discharge of this patient 32 minutes.
--- NOTE | 2017-10-14 11:47 | EKG ---
Test Reason : Blood Pressure : / mmHG Vent. Rate : 071 BPM Atrial Rate : 071 BPM P-R Int : 176 ms QRS Dur : 088 ms QT Int : 388 ms P-R-T Axes : 038 002 041 degrees QTc Int : 421 ms Normal sinus rhythm Minimal voltage criteria for LVH, may be normal variant Nonspecific ST abnormality Abnormal ECG Confirmed by MICHELET MATIAS, JAY JAY ([id number]), social media editor AMY SEYMOUR ([id number]) on 10/14/2017 11:46:47 AM Referred By: Confirmed By:JAY JAY TAFOYA MD
== END 2017-10-12 17:03 | DRG 872 ==
LOC: ERS 12:39 → 2NO 16:39
PROVIDERS: ADMIT Internal Medicine; ATTEND Internal Medicine
DX: A41.9 Sepsis, unspecified organism (principal); S22.41XA Multiple fractures of ribs, right side, initial encounter for closed fracture; N39.0 Urinary tract infection, site not specified; N17.9 Acute kidney failure, unspecified; E86.0 Dehydration; I48.2 Chronic atrial fibrillation; I10 Essential (primary) hypertension; E78.5 Hyperlipidemia, unspecified; G40.909 Epilepsy, unspecified, not intractable, without status epilepticus; W01.0XXA Fall on same level from slipping, tripping and stumbling without subsequent striking against object, initial encounter; B96.20 Unspecified Escherichia coli [E. coli] as the cause of diseases classified elsewhere; Z66 Do not resuscitate; R79.1 Abnormal coagulation profile; M85.80 Other specified disorders of bone density and structure, unspecified site; Z79.01 Long term (current) use of anticoagulants; Y93.9 Activity, unspecified; Y92.9 Unspecified place or not applicable; Y99.9 Unspecified external cause status
CPT/HCPCS: 36415; 70450; 71045; 71250; 74177; 80048; 80053; 81003; 81015; 82550; 82553; 83605; 83690; 83880; 84484; 85025; 85610; 85730; 87040; 87077; 87086; 87186; 93005; 96361; 96365; 96375; 99211; G0463; G8978-GP-CK; G8979-GP-CI; G8987-GO-CJ; G8988-GO-CI; J2185; J3010; J7050

== ENCOUNTER 2017-12-16 11:00 | Emergency (ER) | payer MEDICARE ==
[2017-12-16] MEDS ORDERED: Morphine 4 MG/ML VIAL ONE (12:06)
[2017-12-16 12:20] LABS: #Basophils 0.1 thou/uL (0.0-0.2); #Eosinphils 0.2 thou/uL (0.0-0.7); #Lymphocytes 1.3 thou/uL (1.20-3.40); #Monocytes 0.8 thou/uL (0.11-0.59); #Neutrophils 5.3 thou/uL (1.40-6.50); %Basophils 0.7 % (0.0-1.0); %Eosinophils 2.4 % (0.0-10.0); %Lymphocytes 16.7 % (21.0-51.0); %Monocytes 10.5 % (0.0-10.0); %Neutrophils 69.7 % (42.0-75.0); Hemoglobin 11.9 g/dL (12.0-16.0); Mean Corpuscular HGB CONC 34.3 g/dL (32.0-36.0); Mean Corpuscular Hemoglobin 35.1 pg (27.0-31.0); Mean Platelet Volume 7.6 fL (7.4-10.4); Platelet Count 220 thou/uL (130-400); RBC Distribution Width 12.5 % (11.5-14.5); White Blood Cell (WBC) Count 7.5 thou/uL (4.8-10.8)
[2017-12-16 12:25] LABS: INR-International Normal Ratio 1.7; PTT 38.7 SEC (22.9-36.1); Prothrombin Time 19.8 SEC (12.0-14.7)
[2017-12-16 12:26] LABS: D-Dimer Test 0.74 *mcg/mL (0.27-0.43)
[2017-12-16 12:31] LABS: CKMB 0.5 ng/mL (0-6.6); Troponin I Less than 0.010 ng/mL (< 0.028)
[2017-12-16 12:38] LABS: ALT (SGPT) 12 U/L (8-55); AST (SGOT) 16 U/L (5-34); Alkaline Phosphatase 108 U/L (40-150); Anion Gap 13 mmol/L (10-20); BUN (Urea Nitrogen) 20 mg/dL (9.8-20.1); Bilirubin, Total 0.3 mg/dL (0.2-1.2); CK (CPK) 29 U/L (29-168); Calc. Creatinine Clearance 0 mL/min (70-130); Calcium 9.8 mg/dL (7.8-10.44); Carbon Dioxide 29 mmol/L (23-31); Chloride 99 mmol/L (98-107); Estimated GFR-MDRD 38; Globulin 4.1 g/dL (2.4-3.5); Glucose 101 mg/dL (83-110); Potassium 4.7 mmol/L (3.5-5.1); Protein, Total 8.1 g/dL (6.0-8.3); Sodium 136 mmol/L (136-145)
--- NOTE | 2017-12-16 14:16 | RAD ---
UPRIGHT PORTABLE CHEST 1 VIEW: HISTORY: An 82-year-old female with a history of chest pain, atrial fibrillation. COMPARISON: 10/09/17. FINDINGS: Stable-appearing interstitial and reticulonodular parenchymal changes bilaterally. Heart size is wit hin normal limits. No confluent pneumonia, overt edema, or pleural effusion. IMPRESSION: Stable interstitial and linear and reticulonodular parenchymal changes. No significant new process. POS: [facility]
[2017-12-16] MEDS ORDERED: traMADol HCl 50 MG TAB ONE ×2 (14:52→15:00)
--- NOTE | 2017-12-16 15:54 | NM ---
VENTILATION PERFUSION LUNG SCAN: 12/16/17 HISTORY: 82-year-old female with history of chest pain. VENTILATION STUDY: Patient inhales 13 millicuries Xenon 133 gas. Ventilation appears to be unremarkable other than being slightly patchy with some minimal decreased ventilation in the left lower chest. PERFUSION LUNG SCAN: Perfusion is patchy bilaterally with minimal decrease in the left posterior lung zone matched to vent ilation study. No evidence for segmental or larger areas of absolute perfusion defect. IMPRESSION: Findings consistent with that of a low probability of acute PE. POS: [facility]
== END 2017-12-16 15:20 | disposition home or self-care (01) ==
LOC: ERS 11:00
DX: R07.89 Other chest pain (principal); I48.91 Unspecified atrial fibrillation; E78.5 Hyperlipidemia, unspecified; F41.9 Anxiety disorder, unspecified; F32.9 Major depressive disorder, single episode, unspecified; Z87.891 Personal history of nicotine dependence; Z79.899 Other long term (current) drug therapy; Z79.82 Long term (current) use of aspirin
CPT/HCPCS: 71045; 78582; 80053; 82550; 82553; 84484; 85025; 85379; 85610; 85730; 93005; 94760; 96374; 99285; A9540; A9558; 36415; J2270

== ENCOUNTER 2018-01-09 08:17 | Outpatient (CLI) | payer MEDICARE ==
--- NOTE | 2018-01-09 10:47 | MRI ---
MRI LUMBAR SPINE WITHOUT CONTRAST: HISTORY: Wedge fracture of the lumbar spine. TECHNIQUE: MRI of the lumbar spine is performed without intravenous Gadolinium administration. Multisequential, multiplanar imaging is performed. FINDINGS: There is diffuse T1 marrow signal hypointensity of the lumbar spine compatible with edema secondary t o a compression fracture. There is severe loss of vertebral body height. There is associated retrop ulsion. Overall, there is heterogeneous marrow signal intensity of the lumbar vertebrae. No signifi cant STIR hyperintensity to suggest edema from L2 through L5. There is associated edema at the L1 le radha. Symmetric signal intensity of the psoas muscles. Appropriate signal intensity of the visualized zohreh d organs. There are T2 hyperintensities in the left and right renal cortex compatible with bilateral renal cortical cysts. Termination of the conus medullaris at the inferior aspect of L1. T12-L1: Mild central canal stenosis. Neural foramina are patent. L1 vertebral body: Retropulsion with moderate central canal stenosis. L1-L2: Adequate disk hydration. No significant posterior disk abnormality. No significant central canal stenosis. Foramen are patent. L2-L3: Adequate disk hydration. No significant central canal stenosis. Neural foramen are patent b ilaterally. L3-L4: Adequate disk hydration. Mild ligamentum flavum thickening and facet hypertrophy. Mild cent ral canal stenosis. Neural foramen are patent bilaterally. L4-L5: Adequate disk hydration. No significant posterior disk abnormality. No significant central canal stenosis. Neural foramen are patent. L5-S1: Severe loss of disk space height. No significant central canal stenosis. Mild bilateral for aminal narrowing. IMPRESSION: 1. Severe compression fracture at L1 with associated retropulsion. There is mild central canal sten osis of the L1 vertebral body secondary to retropulsion. 2. Degenerative change of the lumbar spine as above. No high-grade central canal stenosis or high-g rade foraminal narrowing. POS: [facility]
--- NOTE | 2018-01-09 11:08 | RAD ---
LUMBAR SPINE 4 VIEWS: HISTORY: Compression fracture. COMPARISON: 10/09/17. FINDINGS: Five lumbar-type vertebrae. Mild rightward convex curvature. Pedicles are intact. Compression on the L1 vertebral body results in loss of height anteriorly by approximately 50% and mi nimal retropulsion. This has developed since the CT scan from 10/09/17. Other vertebral body heights are maintained. Alignment unremarkable on the lateral view. Osteophytosis throughout the facets. N o abnormal translational motion upon flexion or extension. IMPRESSION: 1. Compression of the L1 vertebral body has developed since the 10/09/2017 CT scan. Minimal retropuls ion. MRI is pending. 2. Lumbar spondylosis. POS: [facility]
== END 2018-01-09 08:18 | disposition home or self-care (01) ==
LOC: BICMRI 08:17
PROVIDERS: ATTEND Anesthesiology Pain Medicine
DX: S32.050A Wedge compression fracture of fifth lumbar vertebra, initial encounter for closed fracture (principal); M47.896 Other spondylosis, lumbar region; M48.061 Spinal stenosis, lumbar region without neurogenic claudication; S32.019D Unspecified fracture of first lumbar vertebra, subsequent encounter for fracture with routine healing
CPT/HCPCS: 72110; 72148

== ENCOUNTER 2018-10-03 08:49 | Outpatient (CLI) | payer MEDICARE | END 2018-10-03 08:50 | disposition home or self-care (01) | LOC: CP 08:49 | PROVIDERS: ATTEND Internal Medicine | DX: J84.112 Idiopathic pulmonary fibrosis (principal); K21.9 Gastro-esophageal reflux disease without esophagitis | CPT/HCPCS: 94060; 94727; 94729 ==

== ENCOUNTER 2018-12-19 09:57 | Outpatient (CLI) | payer MEDICARE ==
--- NOTE | 2018-12-19 10:22 | RAD ---
EXAM: Chest 2 views: HISTORY: Dyspnea COMPARISON: 12/16/2017 FINDINGS: Marked bilateral hyperinflation showing some progression. Heart size:Within normal limits. Lungs:Extensive bilateral interstitial and reticular nodular parenchymal changes showing evidence for some progression. Marked vertical height loss of several vertebral bodies one in the upper thoracic spine and the other one at L1. The L1 compression was evident on 01/09/2018 lumbar spine. Atherosclerotic changes of the aorta. No confluent pneumonia, overt edema, pleural effusion, pneumothorax, or other significant acute proce ss. IMPRESSION: Progressive hyperinflation and interstitial and reticular nodular parenchymal changes evidence for wo rsening nonspecific interstitial chronic lung disease. Atherosclerosis of the aorta. No acute intrathoracic disease.
== END 2018-12-19 09:58 | disposition home or self-care (01) ==
LOC: RAD 09:57
PROVIDERS: ATTEND Internal Medicine
DX: R06.00 Dyspnea, unspecified (principal); I70.0 Atherosclerosis of aorta; J84.9 Interstitial pulmonary disease, unspecified; R91.8 Other nonspecific abnormal finding of lung field
CPT/HCPCS: 71046

== ENCOUNTER 2019-02-20 11:44 | Observation (INO) | payer MEDICARE ==
--- NOTE | 2019-02-20 11:58 | CT ---
CT BRAIN WITHOUT CONTRAST: HISTORY:Level 1 stroke alert. Weakness and blurred vision COMPARISON:10/09/2017 FINDINGS: There are foci of decreased attenuation in the periventricular white matter, consistent with chronic small vessel ischemic disease. No evidence of acute infarct, hemorrhage, midline shift or abnormal extra-axial fluid collections is seen. The ventricular size is appropriate and the basilar cisterns are patent. The bony calvarium is intact. The visualized paranasal sinuses and mastoid air cells are well aerated. IMPRESSION: No CT evidence of acute intracranial process.
[2019-02-20 12:19] LABS: #Basophils 0.1 thou/uL (0.0-0.2); #Eosinphils 0.3 thou/uL (0.0-0.7); #Lymphocytes 1.6 thou/uL (1.20-3.40); #Monocytes 0.8 thou/uL (0.11-0.59); #Neutrophils 4.3 thou/uL (1.40-6.50); %Eosinophils 4.4 % (0.0-10.0); %Lymphocytes 22.6 % (21.0-51.0); %Monocytes 11.4 % (0.0-10.0); %Neutrophils 60.6 % (42.0-75.0); Hemoglobin 12.9 g/dL (12.0-16.0); Mean Corpuscular HGB CONC 32.9 g/dL (32.0-36.0); Mean Corpuscular Hemoglobin 33.9 pg (27.0-31.0); Mean Platelet Volume 7.6 fL (7.4-10.4); Platelet Count 253 thou/uL (130-400); RBC Distribution Width 12.9 % (11.5-14.5); Red Blood Cell (RBC) Count 3.79 mill/uL (4.20-5.40); White Blood Cell (WBC) Count 7.1 thou/uL (4.8-10.8)
[2019-02-20 12:32] LABS: ALT (SGPT) 14 U/L (8-55); AST (SGOT) 21 U/L (5-34); Albumin 4.1 g/dL (3.4-4.8); Alkaline Phosphatase 106 U/L (40-110); Anion Gap 11 mmol/L (10-20); BUN (Urea Nitrogen) 28 mg/dL (9.8-20.1); Bilirubin, Total 0.4 mg/dL (0.2-1.2); CK (CPK) 38 U/L (29-168); Calc. Creatinine Clearance 0 mL/min (70-130); Calcium 9.3 mg/dL (7.8-10.44); Carbon Dioxide 31 mmol/L (23-31); Chloride 102 mmol/L (98-107); Estimated GFR-MDRD 34; Glucose 99 mg/dL (83-110); Potassium 4.8 mmol/L (3.5-5.1); Protein, Total 8.1 g/dL (6.0-8.3); Sodium 139 mmol/L (136-145)
[2019-02-20 12:34] LABS: INR-International Normal Ratio 1.7; Prothrombin Time 19.9 SEC (12.0-14.7)
[2019-02-20 12:35] LABS: PTT 38.8 SEC (22.9-36.1)
[2019-02-20] MEDS ORDERED: Aspirin Chewable 81 MG TAB ONE (13:42)
[2019-02-20 15:07] LABS: Bilirubin Negative (Negative); Blood, Urine Negative (Negative); Clarity Clear (Clear); Glucose, Urine (Dipstick) Normal (Negative); Leukocyte 250 Leu/uL (Negative); Nitrite Negative (Negative); Protein, Urine (Dipstick) Negative (Neg-Trace); RBC/HPF 0-3 HPF (0-3); Squamous Epithelial 0-3 HPF (0-3); Urobilinogen Normal mg/dL (Less than 2)
[2019-02-20 15:08] LABS: Bacteria/HPF 1+ HPF (None Seen)
[2019-02-20 15:39] LABS: Troponin I Less than 0.010 ng/mL (< 0.028)
[2019-02-20] MEDS ORDERED: Sodium Chloride 0.9% 1,000 ML IV SCH (18:00)
[2019-02-20] MEDS ORDERED: hydrALAZINE 20 MG/ML VIAL SLOW IVP PRN (18:56)
[2019-02-20] MEDS ORDERED: Acetaminophen 650 MG Suppository PR PRN (19:06)
[2019-02-20] MEDS ORDERED: Ondansetron ODT 4 MG TAB PO PRN (19:06)
[2019-02-20] MEDS ORDERED: Ondansetron PF 4 MG/2 ML Vial IVP PRN (19:06)
--- NOTE | 2019-02-20 20:21 | ULT ---
CAROTID ARTERIAL DOPPLER ULTRASOUND: 02/20/19 COMPARISON: None. HISTORY: TIA/CVA. TECHNIQUE: Multiplanar qureshi scale sonographic imaging of the arterial structures of the neck obtained with color flow and spectral analysis. FINDINGS: Antegrade blood flow and normal arterial waveforms are documented within the carotid and vertebral sy stem bilaterally. VESSEL PSV (cm/s) Right CCA 106 Right ICA 132 Right ECA 131 Left CCA 87 Left ICA 87 Left ECA 74 ICA/CCA ratio is 1.3 on the right and 1.0 on the left. IMPRESSION: There is a mildly elevated velocity within the right internal carotid artery correlating with a moder ate degree of stenosis (50-69%, which correlates with a peak systolic velocity of 125-230 cm/s). POS: [facility]
[2019-02-20 20:22] VITALS: BMI 20.5
--- NOTE | 2019-02-20 20:45 | PDOC.HHP ---
Hospitalist HPI - History of Present Illness Dizziness and blurred vision History of Present Illness: Mrs. Singleton is a very pleasant 83 year old woman presenting with blurred vision that started suddenly at 10am while she was on her computer. She states she covered each of her eyes and felt that her vision was better in her right eye. She denies any diplopia. She noted when walking that she was unable to walk straight, leaning to her right. Also reports having dizziness described as "spinning" sensation. Has not had symptoms like this before. No headache, nausea or vomiting. No chest pain, palpitations, diaphoresis or shortness of breath. She is unsure what time her symptoms resolved, but states when assessed just now when arriving to the floor she had difficulty with her words. She states she was thinking them but unable to say them. She has a history of afib for which she underwent ablations in the past. She is known to Dr. Grey and was previously on anticoagulation with Eliquis but changed to coumadin due to interaction with phenobarbital which she is being weaned off of. She had a SILVANO in 2012 that showed a hypomobile atrial appendage. For that reason she has been on anticoagulation. ED Course: In the ED she had an EKG showing NSR with a HR of 68. No ST changes or T wave abnormalities. Labs in the ED notable for subtherapeutic INR of 1.7. Trop negative. BUN elevated at 28, creatinine at 1.47 and GFR was 34 (off from her baseline). UA was notable for 250 leukocytes, 11-20 WBCs and 1+ bacteria. CT Head done showed no acute intracranial abnormalities. Patient was given aspirin 325 mg PO. Hospitalist ROS - Review of Systems Constitutional: denies: fever, chills, sweats, weakness, malaise, other Eyes: reports: vision change (blurred vision). denies: pain, conjunctivae inflammation, eyelid inflammation, redness, other ENT: denies: ear pain, ear discharge, nose pain, nose discharge, nose congestion , mouth pain, mouth swelling, throat pain, throat swelling, other Respiratory: denies: cough, dry, shortness of breath, hemoptysis, SOB with excertion, pleuritic pain, sputum, wheezing, other Cardiovascular: reports: light headedness. denies: chest pain, palpitations, orthopnea, paroxysmal noc. dyspnea, edema, other Gastrointestinal: denies: nausea, vomiting, abdominal pain, diarrhea, constipation, melena, hematochezia, other Genitourinary: reports: other (had an episode of urinary hesitancy 2 days ago.) . denies: dysuria, frequency, incontinence, hematuria, retention Musculoskeletal: reports: other (has had occasional weakness in her knees as if they could "buckle"). 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: reports: Seizure Psych: reports: Anxiety, Depression - Past Surgical History Past Surgical History: reports: Cataract Removal, Hysterectomy, Other (cardiac ablations x 3) Other Surgical History: Rotator Cuff surgery - Family History Family History: reports: no pertinent history - Social History Smoking Status: Former smoker Alcohol: reports: None Drugs: reports: none Living Situation: Alone Activity level: uses cane/walker - Exam General Appearance: NAD, awake alert Eye: PERRL, anicteric sclera Eye - other findings: EOM intact, visual solitario slightly reduced superiorly due to ptsosis ENT: normocephalic atraumatic, no oropharyngeal lesions Neck: supple, symmetric, no JVD, no thyromegaly, no lymphadenopathy Heart: RRR, no murmur, no gallops, no rubs, normal peripheral pulses Respiratory: CTAB, no wheezes, no rales, no ronchi, normal chest expansion Gastrointestinal: soft, non-tender, non-distended, normal bowel sounds, no palpable masses, no guarding, no rigidity Extremities: no cyanosis, no clubbing, no edema Skin: normal turgor, no lesions, no rashes Neurological: normal sensation to touch, no weakness, no focal deficits Neurological - other findings: Power 5/5 in all limbs, reflexes intact Musculoskeletal: normal tone, normal strength, no muscle wasting, generalized weakness Psychiatric: normal affect, normal behavior, A&O x 3 Hospitalist Results - Labs Result Diagrams: 02/21/19 05:26 02/21/19 05:26 Lab results: WBC 7.1 thou/uL (4.8-10.8) 02/20/19 12:04 Hgb 12.9 g/dL (12.0-16.0) 02/20/19 12:04 Hct 39.1 % (36.0-47.0) 02/20/19 12:04 MCV 103.0 fL (78.0-98.0) H 02/20/19 12:04 Plt Count 253 thou/uL (130-400) 02/20/19 12:04 Neutrophils % 60.6 % (42.0-75.0) 02/20/19 12:04 Sodium 139 mmol/L (136-145) 02/20/19 12:04 Potassium 4.8 mmol/L (3.5-5.1) 02/20/19 12:04 Chloride 102 mmol/L (98-107) 02/20/19 12:04 Carbon Dioxide 31 mmol/L (23-31) 02/20/19 12:04 BUN 28 mg/dL (9.8-20.1) H 02/20/19 12:04 Creatinine 1.47 mg/dL (0.6-1.1) H 02/20/19 12:04 Glucose 99 mg/dL (83-110) 02/20/19 12:04 Calcium 9.3 mg/dL (7.8-10.44) 02/20/19 12:04 Total Bilirubin 0.4 mg/dL (0.2-1.2) 02/20/19 12:04 AST 21 U/L (5-34) 02/20/19 12:04 ALT 14 U/L (8-55) 02/20/19 12:04 Alkaline Phosphatase 106 U/L (40-110) 02/20/19 12:04 Creatine Kinase 38 U/L (29-168) 02/20/19 12:04 Troponin I Less than 0.010 ng/mL (< 0.028) 02/20/19 15:06 B-Natriuretic Peptide 175.2 pg/mL (0-100) H 02/20/19 19:28 Serum Total Protein 8.1 g/dL (6.0-8.3) 02/20/19 12:04 Albumin 4.1 g/dL (3.4-4.8) 02/20/19 12:04 Urine Ketones Negative mg/dL (Negative) 02/20/19 14:50 Urine Blood Negative (Negative) 02/20/19 14:50 Urine Nitrite Negative (Negative) 02/20/19 14:50 Ur Leukocyte Esterase 250 Jennifer/uL (Negative) A 02/20/19 14:50 Urine RBC 0-3 HPF (0-3) 02/20/19 14:50 Urine WBC 11-20 HPF (0-3) A 02/20/19 14:50 Ur Squamous Epith Cells 0-3 HPF (0-3) 02/20/19 14:50 Urine Bacteria 1+ HPF (None Seen) A 02/20/19 14:50 - Radiology Interpretation CT scan - head Status: report reviewed by tx Hospitalist H&P A/P - Problem (1) Blurred vision Code(s): H53.8 - OTHER VISUAL DISTURBANCES Status: Acute (2) Dizziness Code(s): R42 - DIZZINESS AND GIDDINESS Status: Acute (3) Abnormality of left atrial appendage Code(s): Q20.8 - OTH CONGENITAL MALFORM OF CARDIAC CHAMBERS AND CONNECTIONS Status: Acute (4) Pulmonary fibrosis Code(s): J84.10 - PULMONARY FIBROSIS, UNSPECIFIED Status: Acute (5) Benign hypertension Code(s): I10 - ESSENTIAL (PRIMARY) HYPERTENSION Status: Chronic (6) Seizure disorder Code(s): G40.909 - EPILEPSY, UNSP, NOT INTRACTABLE, WITHOUT STATUS EPILEPTICUS Status: Chronic - Plan Plan: MRI ordered as well as carotid US. Lovenox 1 mg/kg SC daily as per Dr. Talavera, renally dosed given concern for CVA and hx of afib as well as low velocities previously of atrial appendage. Also given subtherapeutic INR. Also advised Cardiology consult. Echo ordered, might require SILVANO to properly assess atrial appendage. Urine culture pending. Neuro consult. Lipid panel with morning labs. Continue aspirin and statin. Mechanical SCDs. Resume home meds and monitor BP. CODE STATUS FULL. Surrogate decision maker is her daughter Catina Rothman. ADDENDUM: patient seen and personally examined discussed with KERVIN. 83 female with known chronic afib with prior ablations on oral VKA and known hypomobile JOAQUÍN who presented with focal neurological symptoms. check MRI noncontrast, carotid duplex, TTE, and await cardiology and neurology evaluations for optimal anticoagulation recommendations for secondary stroke prevention as subtherapeutic INR noted.
[2019-02-20] MEDS ORDERED: Atorvastatin Calcium 40 MG TAB PO SCH (21:00)
[2019-02-20] MEDS ORDERED: Famotidine/PF 20 mg/2ml Vial SLOW IVP SCH (21:00)
[2019-02-21] MEDS ORDERED: diphenhydrAMINE 25 MG CAP PO SCH (00:30)
[2019-02-21] MEDS: Acetaminophen 325 MG TAB PO PRN ×2 (02:15→09:31)
[2019-02-21 05:44] LABS: PTT 29.7 SEC (22.9-36.1)
[2019-02-21 05:48] LABS: #Eosinphils 0.3 thou/uL (0.0-0.7); #Lymphocytes 1.6 thou/uL (1.20-3.40); #Monocytes 0.8 thou/uL (0.11-0.59); #Neutrophils 4.3 thou/uL (1.40-6.50); %Basophils 0.5 % (0.0-1.0); %Eosinophils 3.8 % (0.0-10.0); %Lymphocytes 22.7 % (21.0-51.0); %Monocytes 11.4 % (0.0-10.0); %Neutrophils 61.7 % (42.0-75.0); Hemoglobin 13.3 g/dL (12.0-16.0); Mean Corpuscular HGB CONC 32.8 g/dL (32.0-36.0); Mean Corpuscular Hemoglobin 33.2 pg (27.0-31.0); Mean Platelet Volume 8.5 fL (7.4-10.4); Platelet Count 150 thou/uL (130-400); RBC Distribution Width 12.7 % (11.5-14.5); Red Blood Cell (RBC) Count 3.99 mill/uL (4.20-5.40)
[2019-02-21 05:56] LABS: INR-International Normal Ratio 1.6; Prothrombin Time 18.7 SEC (12.0-14.7)
[2019-02-21 05:58] LABS: Anion Gap 10 mmol/L (10-20); BUN (Urea Nitrogen) 21 mg/dL (9.8-20.1); Calc. Creatinine Clearance 32 mL/min (70-130); Calcium 8.5 mg/dL (7.8-10.44); Carbon Dioxide 27 mmol/L (23-31); Cardiac Risk 2.6 (Less than 4.5); Chloride 104 mmol/L (98-107); Cholesterol 121 mg/dl (< 200 Desired); Estimated GFR-MDRD 45; Glucose 82 mg/dL (83-110); HDL Cholesterol 47 mg/dL (>60 Neg Risk); LDL Cholesterol, Calculated 66 mg/dL; Potassium 4.3 mmol/L (3.5-5.1); Sodium 137 mmol/L (136-145); Triglycerides 42 mg/dL (Less than 150)
[2019-02-21] MEDS ORDERED: Lorazepam 2 MG/ML VIAL SLOW IVP SCH (07:00)
--- NOTE | 2019-02-21 08:35 | PRG ---
DATE OF SERVICE: 02/21/2019 SUBJECTIVE: Ms. Singleton was seen and evaluated as an outpatient yesterday in the office. Her symptoms suggested recent TIA. Her INR was 1.7. It was recommended she proceed to the emergency room. Currently, she is doing well. No current complaints. She continues to have slight blurred vision. Her INR upon arrival was 1.7. This morning, it is 1.6. OBJECTIVE: VITAL SIGNS: Blood pressure 183/73, pulse 80, and temperature 98.1. LUNGS: Clear to auscultation. HEART: Regular rate and rhythm. ABDOMEN: Soft, nontender, and nondistended. EXTREMITIES: No edema. PERTINENT LABORATORY DATA: Hemoglobin 13.3 and hematocrit 40.4. Creatinine 1.14. IMPRESSION: 1. Transient ischemic attack versus cerebrovascular accident. 2. Atrial fibrillation, status post ablation. 3. Nonfunctioning left atrial appendage. 4. History of seizure disorder. RECOMMENDATIONS: 1. The patient has had difficulty with controlling INR on Coumadin therapy. In the past, it was recommended she seek an alternative. She has tried to wean herself off phenobarbital. She states her last episode of seizure was 35 years ago. I did state she should do this at the recommendation of Neurology. 2. Continue aspirin 81 q.a.m. 3. We will need to restart Coumadin unless she stops phenobarbital. If she seeks an alternate phenobarbital, she can add Eliquis or Xarelto. 4. The patient with documented minimal to no velocities present to the left atrial appendage, increasing risk of stroke. SILVANO would not be recommended or indicated. 5. At this point, main issue is to try and decide on what her ideal anticoagulation therapy protocol will be from [facility] and at this point is pending her change in phenobarbital. We will leave it to the discretion of Neurology. Job ID: [id number]
--- NOTE | 2019-02-21 08:40 | MRI ---
MRI BRAIN WITHOUT CONTRAST: HISTORY: TIA, weakness and blurred vision CORRELATION: CT scan from previous day. FINDINGS: No restricted diffusion is seen. There are multiple foci of T2 prolongation in the periventricular wh ite matter, consistent with chronic small vessel ischemic disease. The ventricular size is appropriate and the basilar cisterns are patent. No evidence of acute infarct, hemorrhage, midline shift or abnormal extra-axial fluid collections is seen. The visualized paranasal sinuses and mastoid air cells are well-aerated. IMPRESSION: No evidence of acute intracranial process.
[2019-02-21] MEDS ORDERED: Enoxaparin Sodium 60 MG/0.6 ML SYRINGE SC SCH (09:00)
[2019-02-21] MEDS ORDERED: Aspirin 81 mg Enteric Coated Tablet PO SCH (09:00)
[2019-02-21] MEDS ORDERED: Lisinopril 20 MG TAB PO SCH (11:15)
[2019-02-21] MEDS ORDERED: Carvedilol 25 MG TAB PO SCH ×2 (11:15→17:00)
[2019-02-21 11:41] VITALS: TEMP 98.4
[2019-02-21 15:28] VITALS: BP 141/68
[2019-02-21] MEDS ORDERED: Apixaban 5 MG TAB PO SCH (17:41)
[2019-02-21] MEDS ORDERED: Apixaban 2.5 MG TAB PO SCH (18:00)
--- NOTE | 2019-02-21 20:11 | CON ---
DATE OF CONSULTATION: 02/21/2019 CONSULTING PHYSICIAN: Hospitalist Service. IMPRESSION: 1. Possible left retinal artery ischemic event resulting in some secondary dizziness and unsteadiness. Her workup is otherwise negative. 2. Past history of meningococcal meningitis with secondary seizures. 3. The patient would like to transition to Eliquis. PLAN: 1. Continue Eliquis. 2. Office followup as necessary. HISTORY OF PRESENT ILLNESS: Ms. Singleton is an 83-year-old white female with a past history of hypertension and atrial fibrillation. She has been on chronic Coumadin therapy. She has been followed by Dr. Grey. She was working at her computer when she suddenly found that the vision in her left eye was blurred. When she got up to walk, she felt a bit unsteady on her feet. There was no lateralized weakness or numbness. She denied any slurred speech, headache, nausea, vomiting, or vertigo. She went to Dr. Grey's office who recommended she be admitted. Her INR was subtherapeutic. Since admission, she had an MRI of the brain, which showed some chronic small vessel ischemic changes, but no acute abnormalities. Her carotid ultrasound showed a 50% to 69% stenosis on the right and nothing on the left. Cholesterol ratio was 2.6. Remainder of her lab was only remarkable for some mild renal insufficiency. Her vision symptoms lasted several hours. There was no associated orbital pain. PAST MEDICAL HISTORY: As listed above. ALLERGIES: PER CHART. SOCIAL HISTORY: No tobacco or alcohol. FAMILY HISTORY: Noncontributory. REVIEW OF SYSTEMS: Ten-system review of systems is otherwise negative. MEDICATIONS: Medication list was reviewed. PHYSICAL EXAMINATION: GENERAL: She is a thin, elderly lady, who is quite bright and appropriate. HEENT: Pupils are equal and reactive. Conjunctivae clear. Oropharynx clear. Cranium, normocephalic and atraumatic. NECK: Supple. EXTREMITIES: No cyanosis or edema. NEUROLOGIC: She is alert and appropriate. Her speech is fluent and clear. Cranial nerves are intact. Motor exam shows equal strength. There are no sensory deficits. There is no fix or drift. There is no tremor or dysmetria. She can now walk independently. LABORATORY STUDIES: EKG showed normal sinus rhythm. SUMMARY: This is an elderly lady with some transient left-sided blurred vision, symptoms have resolved. She has been switched over to Eliquis. She wants to get off phenobarbital. I have advised her she can go ahead and discontinue her current dose of 32 mg. I would be happy to follow up with her as an outpatient as needed. Job ID: [id number]
[2019-02-21] MEDS ORDERED: Famotidine/PF 20 mg/2ml Vial SLOW IVP SCH (21:00)
[2019-02-22] MEDS ORDERED: Lisinopril 20 MG TAB PO SCH (09:00)
[2019-02-22] MEDS ORDERED: Apixaban 2.5 MG TAB PO SCH (09:00)
== END 2019-02-21 19:25 | disposition home or self-care (01) ==
LOC: ERS 11:44 → ERHOLD 15:23 → 2SE 18:00
PROVIDERS: ADMIT Hospitalist; ATTEND Hospitalist
DX: H53.8 Other visual disturbances (principal); R42 Dizziness and giddiness; R79.1 Abnormal coagulation profile; I48.91 Unspecified atrial fibrillation; I10 Essential (primary) hypertension; E78.5 Hyperlipidemia, unspecified; F41.9 Anxiety disorder, unspecified; F32.9 Major depressive disorder, single episode, unspecified; Q20.8 Other congenital malformations of cardiac chambers and connections; I65.21 Occlusion and stenosis of right carotid artery; J84.10 Pulmonary fibrosis, unspecified; G40.909 Epilepsy, unspecified, not intractable, without status epilepticus; Z87.891 Personal history of nicotine dependence; Z79.01 Long term (current) use of anticoagulants; Z79.82 Long term (current) use of aspirin; Z79.899 Other long term (current) drug therapy; Z91.048 Other nonmedicinal substance allergy status; Z98.890 Other specified postprocedural states
CPT/HCPCS: 70450; 70551; 80048; 80053; 80061; 82550; 82962; 83735; 83880; 84484 ×2; 85025 ×2; 85610 ×2; 85730 ×2; 87086; 93005; 93306; 93880; 96361 ×2; 96372; 96374; 96375; 97139 ×3; 99285; G0378 ×3; 36415; 36416; 81003; 81015; J1650; J2060; Q0163; S0028

== ENCOUNTER 2019-10-14 16:04 | Observation (INO) | payer MEDICARE ==
[2019-10-14 17:01] LABS: #Basophils 0.1 thou/uL (0.0-0.2); #Eosinphils 0.3 thou/uL (0.0-0.7); #Lymphocytes 1.5 thou/uL (1.20-3.40); %Basophils 0.7 % (0.0-1.0); %Lymphocytes 17.4 % (21.0-51.0); %Monocytes 11.2 % (0.0-10.0); %Neutrophils 67.8 % (42.0-75.0); Hemoglobin 12.5 g/dL (12.0-16.0); Mean Corpuscular HGB CONC 32.9 g/dL (32.0-36.0); Mean Corpuscular Hemoglobin 32.8 pg (27.0-31.0); Mean Corpuscular Volume 99.6 fL (78.0-98.0); Mean Platelet Volume 7.4 fL (7.4-10.4); Platelet Count 249 thou/uL (130-400); RBC Distribution Width 12.6 % (11.5-14.5); Red Blood Cell (RBC) Count 3.81 mill/uL (4.20-5.40); White Blood Cell (WBC) Count 8.9 thou/uL (4.8-10.8)
[2019-10-14 17:25] LABS: ALT (SGPT) 13 U/L (8-55); AST (SGOT) 17 U/L (5-34); Albumin 3.9 g/dL (3.4-4.8); Alkaline Phosphatase 122 U/L (40-110); Anion Gap 12 mmol/L (10-20); BUN (Urea Nitrogen) 36 mg/dL (9.8-20.1); Bilirubin, Total 0.3 mg/dL (0.2-1.2); Calc. Creatinine Clearance 0 mL/min (70-130); Calcium 9.5 mg/dL (7.8-10.44); Carbon Dioxide 32 mmol/L (23-31); Chloride 97 mmol/L (98-107); Estimated GFR-MDRD 36; Globulin 4.4 g/dL (2.4-3.5); Glucose 100 mg/dL (83-110); Potassium 4.3 mmol/L (3.5-5.1); Protein, Total 8.3 g/dL (6.0-8.3); Sodium 137 mmol/L (136-145)
--- NOTE | 2019-10-14 17:31 | RAD ---
LEFT RIB SERIES WITH A PA VIEW OF THE CHEST INDICATION: 83-year-old female with back pain COMPARISON: Chest radiograph dated January 01, 2019 FINDINGS: Chest radiograph: The chronic interstitial fibrotic change affecting both lungs is stable. Mild cardi omegaly is stable. Vascular calcifications of the aortic arch are stable. Left Ribs: There are healed rib deformities involving the anterolateral left seventh rib, posterior l eft seventh and posterior left eighth ribs. No acute displaced left-sided rib fractures definitely seen. No pneumothorax is evident. There is a stable wedge compression fracture of L1. There is diffus e osteopenia. IMPRESSION: No displaced left-sided rib fracture
[2019-10-14] MEDS ORDERED: Fentanyl 100 MCG/2 ML VIAL ONE (18:14)
[2019-10-14 18:26] LABS: Bilirubin Negative (Negative); Blood, Urine Negative (Negative); Clarity Clear (Clear); Glucose, Urine (Dipstick) Normal (Negative); Ketone, Urine Negative (Negative); Leukocyte 250 Leu/uL (Negative); Nitrite 2+ (Negative); Protein, Urine (Dipstick) Negative (Neg-Trace); RBC/HPF 0-3 HPF (0-3); Specific Gravity, Urine 1.015 (1.002-1.036); Squamous Epithelial None Seen HPF (0-3); Urobilinogen Normal mg/dL (Less than 2); WBC/HPF 21-50 HPF (0-3)
[2019-10-14 18:30] LABS: Bacteria/HPF 1+ HPF (None Seen)
[2019-10-14] MEDS ORDERED: Senokot S 8.6-50 MG TAB PO PRN (19:00)
[2019-10-14] MEDS ORDERED: Calcium Carbonate 500 MG ChewTAB PO PRN (19:00)
[2019-10-14] MEDS ORDERED: Sodium Chloride 0.9% 1,000 ML IV SCH (19:00)
--- NOTE | 2019-10-14 19:58 | HP ---
PRIMARY CARE PHYSICIAN: Pedro Saucedo MD ROD PULLER: Kevon Grey MD CAMPUS SECURITY OFFICER: Pedro Weber MD CHIEF COMPLAINT: Syncope. HISTORY OF PRESENT ILLNESS: The patient is an 83-year-old female with a past medical history significant for atrial fibrillation, on Eliquis, hypertension, hyperlipidemia, and pulmonary fibrosis who presents to the ER for the above complaint. The patient reports at approximately 3:00 a.m. this morning she got out of bed to go to the restroom. As she was walking to the restroom, she became "woozy," felt like she was going to pass out. She tried to turn around to go back to her bed, but was unable to and she fell contacting her left side of her ribs into the bedside table. She denies hitting her head, any LOC or vomiting. She denies any previous falls or traumas. Denies any recent fevers, chills, or sick contacts. Denies any recent change to her medications. She reports that her left side, ribs hurt, describes as aching. It is exacerbated by deep inhalation. She denies any shortness of breath or cough. She denies any chest pain or heart palpitations. She denies any abdominal pain, vomiting, or diarrhea. She denies any dysuria or hematuria. For the above reasons, the patient presented to the ER. In the ER, the patient presented with a normal blood pressure, normal pulse, normal respirations, and she was afebrile. EKG, normal sinus rhythm. Chest x-ray showed old rib fractures. Initial troponin 0.016. CMP, TSH, mag, and CBC were all unremarkable. The patient was given 25 mcg of fentanyl and admitted to the floor. PAST MEDICAL HISTORY: 1. Atrial fibrillation, on Eliquis. 2. Hypertension. 3. Hyperlipidemia. 4. Pulmonary fibrosis. 5. TIA in February 2019. PAST SURGICAL HISTORY: 1. Ablation x3. 2. Hysterectomy. 3. Rotator cuff. 4. Cataracts. SOCIAL HISTORY: The patient lives at [facility], alone in an apartment. She is a former smoker, quit greater than 10 years ago. Drinks alcohol socially. No illicit drug use. Ambulates without any assistive devices. FAMILY HISTORY: Contributory for cardiac disease, contributory for stroke. ALLERGIES: 1. ADHESIVE TAPE. 2. NO KNOWN DRUG ALLERGIES. HOME MEDICATIONS: 1. Atorvastatin 40 mg p.o. at bedtime. 2. Coreg 25 mg p.o. b.i.d. 3. Lisinopril 20 mg p.o. daily. 4. Lasix 40 mg p.o. q.a.m. 5. Amlodipine 10 mg p.o. at bedtime. 6. Eliquis 2.5 mg p.o. b.i.d. 7. Pepcid 20 mg p.o. b.i.d. 8. Xanax 0.25 mg p.o. t.i.d. p.r.n. anxiety. REVIEW OF SYSTEMS: All review of systems are negative unless otherwise stated in the HPI. PHYSICAL EXAMINATION: VITAL SIGNS: Temperature 98.5, blood pressure 125/60, heart rate 80, respirations 16, 92% on 3 L nasal cannula. Pain scale 8/10. CONSTITUTIONAL: Alert and oriented to person, place, and time. Moves all extremities well. Nontoxic. No acute distress. HEAD: Atraumatic and normocephalic. EYES: PERRLA. Extraocular muscles intact. ENT: Bilateral EACs, clear. TMs intact. Nares patent bilaterally. Oropharynx is clear. Uvula is midline. Moist mucous membranes. No oral lesions. NECK: Supple. Trachea midline. No JVD. No cervical adenopathy. Full range of motion. No cervical spinous tenderness. RESPIRATORY/CHEST: Respirations are clear to auscultation. Respirations are even and nonlabored. No rhonchi, wheezes, or rales. CARDIOVASCULAR: Regular rate and rhythm, 3/6 murmur. No rubs or gallops. ABDOMEN: Soft, nontender. Active bowel sounds. No abdominal bruit auscultated. No guarding. No rigidity. No rebound. Negative Vieyra. Negative Rovsing sign. BACK: No central spinous tenderness. No CVA tenderness. Full range of motion. UPPER EXTREMITIES: Full range of motion. Strength intact. Sensation intact. Palpable radial pulses. LOWER EXTREMITIES: Full range of motion. Strength normal. Sensation intact. Palpable pedal pulses. No swelling. NEUROLOGIC: The patient is alert and oriented to person, place, and time. No focal deficits. Moves all extremities well. Follows commands. Normal gait. PSYCH: Normal affect. Alert and oriented to person, place, and time. LABS AND DIAGNOSTICS: EKG, normal sinus rhythm, 74. Chest x-ray positive for old rib fractures, no acute process. Initial troponin 0.016. TSH 1.19, mag 2.0. Sodium 137, potassium 4.3, chloride 97, CO2 32, BUN 36, creatinine 1.40, glucose 100, T bilirubin 0.3, AST 17, ALT 13, ALP 122. WBCs 8.9, hemoglobin 12.5, hematocrit 37.9, platelets 249. IMPRESSION AND PLAN: 1. Syncope. We will admit the patient to telemetry for observation status. Expected length of stay, less than two midnights. The patient presented with normal vital signs, normal EKG. Has a history of atrial fibrillation, is on anticoagulation. Denies any loss of consciousness or vomiting. Denies hitting her head. The patient had no cardiac symptoms at the time of her syncopal episode. Initial troponin 0.016. We will continue to trend troponins. We will check a BNP. The patient last had an echo in 03/2019, EF 50% to 55% with some moderate mitral regurgitation. We will obtain an echocardiogram. We will check orthostatic vital signs. We will get a carotid ultrasound. We will check a fasting lipid and we will get a urine sample. 2. Acute kidney injury. The patient presented with a creatinine of 1.4, was 1.14 in February 2019. We will give gentle IV fluid resuscitation. We will obtain a BNP. We will recheck levels in the a.m. We will hold nephrotoxic medications at this time. 3. Atrial fibrillation. The patient has a history of atrial fibrillation, on Eliquis 2.5 mg b.i.d., has a history of ablation x3. Her drafter assistant is Dr. Grey. We will continue cardiac monitoring. We will consult Cardiology. 4. Hypertension. The patient presented with a normal blood pressure, is on Coreg, lisinopril, Lasix at home. We will hold Lasix and lisinopril for now. We will restart her Coreg after her medications are updated by Nursing. 5. Hyperlipidemia. The patient is on atorvastatin. We will check a fasting lipid profile. 6. Pulmonary fibrosis. The patient saw Dr. Moses and reports that she has had two PFTs in the past. Currently sees and has seen him one time in the recent months. The patient's respirations are even and unlabored, in no respiratory distress. We will continue to monitor. 7. No deep venous thrombosis prophylaxis. Pepcid for gastrointestinal prophylaxis. The patient is a full code and POA is her daughter, Shashi, her number is [phone]. 8. Discussed the case with Dr. Michel. Job ID: [id number] MTDD
[2019-10-14 20:10] LABS: INR-International Normal Ratio 1.1
[2019-10-14 20:30] LABS: Troponin I 0.018 ng/mL (< 0.028)
[2019-10-14] MEDS: cefTRIAXone\\ROCEPHIN 1 GM in Sodium Chloride 0.9% 100 ML IVPB SCH (22:06)
[2019-10-14 23:06] VITALS: BMI 20.3
--- NOTE | 2019-10-14 23:33 | ULT ---
BILATERAL CAROTID DUPLEX ULTRASOUND: HISTORY: History of syncope TECHNIQUE: Grayscale, color-flow and spectral Doppler ultrasound imaging of the extracranial carotid artery syst ems and vertebral arteries was performed bilaterally. Comparisons are made with a prior dated February 20, 2019 FINDINGS: There is moderate partially calcified atherosclerotic plaque involving the proximal right ICA. There is mild plaque seen within the proximal left ICA. There is diffuse abnormal thickening of the common carotid arteries. The peak systolic velocity in the right ICA measures 132.4 cm/s. The peak systolic velocity in the r ight CCA measures 105.7 cm/s. The peak systolic velocity in the left ICA measures 100.0 cm/s. The peak systolic velocity in the left CCA measures 107.7 cm/s. The right IC/CC ratio is1.25. The left IC/CC ratio is 0.93. Vertebral flow: There is some transient reversal flow seen within the right vertebral artery. There is antegrade flow within the left vertebral artery . IMPRESSION: Moderate (50-69%) stenosis of Right ICA. No hemodynamically significant stenosis of the left internal carotid artery. 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 Follow-up CTA of the neck is recommended for additional characterization.
[2019-10-15 04:03] LABS: #Basophils 0.1 thou/uL (0.0-0.2); #Eosinphils 0.3 thou/uL (0.0-0.7); #Lymphocytes 1.8 thou/uL (1.20-3.40); #Neutrophils 4.3 thou/uL (1.40-6.50); %Basophils 0.9 % (0.0-1.0); %Eosinophils 3.5 % (0.0-10.0); %Lymphocytes 24.5 % (21.0-51.0); %Monocytes 13.3 % (0.0-10.0); %Neutrophils 57.7 % (42.0-75.0); Hemoglobin 11.7 g/dL (12.0-16.0); Mean Corpuscular HGB CONC 35.1 g/dL (32.0-36.0); Mean Corpuscular Hemoglobin 35.2 pg (27.0-31.0); Mean Platelet Volume 8.8 fL (7.4-10.4); Platelet Count 219 thou/uL (130-400); RBC Distribution Width 12.8 % (11.5-14.5); Red Blood Cell (RBC) Count 3.32 mill/uL (4.20-5.40); White Blood Cell (WBC) Count 7.4 thou/uL (4.8-10.8)
[2019-10-15 04:17] LABS: Anion Gap 11 mmol/L (10-20); BUN (Urea Nitrogen) 28 mg/dL (9.8-20.1); Calc. Creatinine Clearance 35 mL/min (70-130); Calcium 8.9 mg/dL (7.8-10.44); Carbon Dioxide 30 mmol/L (23-31); Cardiac Risk 2.2 (Less than 4.5); Chloride 101 mmol/L (98-107); Cholesterol 107 mg/dl (< 200 Desired); Estimated GFR-MDRD 50; Glucose 86 mg/dL (83-110); HDL Cholesterol 48 mg/dL (>60 Neg Risk); LDL Cholesterol, Calculated 51 mg/dL; Potassium 4.2 mmol/L (3.5-5.1); Sodium 138 mmol/L (136-145); Triglycerides 38 mg/dL (Less than 150)
[2019-10-15] MEDS: Acetaminophen 325 MG TAB PO PRN ×2 (05:40→20:16)
[2019-10-15] MEDS ORDERED: Prevnar 13-Val Conj/PF 0.5 ML SYRINGE IM ONE (09:00)
[2019-10-15] MEDS ORDERED: Magnevist 469MG/ML 20 ML VIAL ONE (09:40)
[2019-10-15] MEDS ORDERED: diphenhydrAMINE 25 MG CAP PO PRN (12:53)
[2019-10-15] MEDS ORDERED: traMADol HCl 50 MG TAB PO PRN (12:53)
[2019-10-15] MEDS ORDERED: ALPRAZolam 0.25 MG TAB PO PRN (12:53)
--- NOTE | 2019-10-15 12:56 | PDOC.HOSPP ---
- Subjective Encounter Date: 10/15/19 Encounter Time: 12:55 Subjective: Ms. Cabello was seen today in follow-up of pre-syncope. She says she has had episodes where she feels like she may pass out. She also says that when she turns her head she feels funny. - Objective Vital Signs & Weight: Vital Signs (12 hours) Temp Pulse Resp BP BP BP Pulse Ox 10/15/19 11:11 97.8 F 83 20 186/83 H 99 10/15/19 07:09 98.2 F 70 16 147/67 H 99 10/15/19 03:47 97.5 F L 68 20 156/68 H 141/66 H 104/51 L 100 Weight Weight 127 lb 3.2 oz I&O: 10/14/19 10/15/19 10/16/19 06:59 06:59 06:59 Intake Total 942 Balance 942 Result Diagrams: 10/15/19 03:31 10/15/19 03:31 Hospitalist ROS - Medication Medications: Active Medications Generic Name Dose Route Start Last Admin Trade Name Cady PRN Reason Stop Dose Admin Acetaminophen 650 mg 10/14/19 19:00 10/15/19 05:40 Tylenol PO 650 mg Q4H PRN Administration Headache/Fever/Mild Pain (1-3) Sodium Chloride 1,000 mls @ 50 mls/hr 10/14/19 19:00 10/14/19 22:06 Normal Saline 0.9% IV 10/15/19 14:59 1,000 mls .Q20H JAYMIE Administration Ceftriaxone Sodium 1 gm/ 100 mls @ 200 mls/hr 10/14/19 20:00 10/14/19 22:06 Sodium Chloride IVPB 100 mls Q24HR JAYMIE Administration Pantoprazole Sodium 40 mg 10/15/19 09:00 10/15/19 08:25 Protonix PO 40 mg DAILY JAYMIE Administration Sodium Chloride 10 ml 10/14/19 21:00 10/15/19 08:26 Flush - Normal Saline IVF Not Given Q12HR JAYMIE - Exam Eye: PERRL Heart: RRR, no murmur, no gallops Respiratory: CTAB, no wheezes, no rales, normal chest expansion Gastrointestinal: soft, non-tender, non-distended, normal bowel sounds Extremities: no cyanosis, no edema Hosp A/P (1) Pre-syncope Status: Acute (2) UTI (urinary tract infection) Status: Acute (3) Atrial fibrillation Code(s): I48.91 - UNSPECIFIED ATRIAL FIBRILLATION Status: Chronic (4) Benign hypertension Code(s): I10 - ESSENTIAL (PRIMARY) HYPERTENSION Status: Chronic - Plan * Pre-Syncope- Possibly due to orthostatic hypotension, however she has some findings on carotid ultrasound which are suggestive of subclavian steal. * Will check a CTA of the neck, and consider CV surgery consult * HTN- will re-start her blood pressure medications, but may need to adjust the doses * UTI- continue Rocephin - and await culture results * AFIB - her heart rate is stable continue Carvediolol, and re-start Eliquis for stroke prevention
[2019-10-15] MEDS ORDERED: Acetaminophen 325 MG TAB PO PRN (13:11)
[2019-10-15] MEDS ORDERED: Lorazepam 2 MG/ML VIAL SLOW IVP PRN (14:53)
--- NOTE | 2019-10-15 16:19 | MRI ---
MRA neck without and with gadolinium contrast HISTORY: Abnormal sonogram. Syncope. TIA. Possible subclavian steal. FINDINGS: Correlated with carotid duplex sonogram 10/14/2019. Good flow is demonstrated throughout each carotid and vertebral artery. Flow within each vertebral artery is towards the head. No stenosis of the proximal portions of either subclavian artery is evident. At each carotid bifurcation and proximal internal carotid artery, good contrast flow is present witho ut significant stenosis evident. Involving the cervical portion of each vertebral artery, near the level of the mid cervical spine, th ere is marked tortuosity, with complete 360 degree hairpin turns, over a length of 0.6 cm on the right and 1.2 cm on the left.. No significant stenosis evident. IMPRESSION : No evidence of subclavian steal. Marked tortuosity of the cervical portions of each vertebral artery is evident and likely accounted for abnormal directional flow seen on recent sonogram. No evidence of cervical carotid stenosis.
[2019-10-15] MEDS: cefTRIAXone\\ROCEPHIN 1 GM in Sodium Chloride 0.9% 100 ML IVPB SCH (20:14)
[2019-10-15] MEDS: Fish Oil 1,000 MG CAP PO SCH (20:16)
[2019-10-15] MEDS: Apixaban 2.5 MG TAB PO SCH (20:16)
[2019-10-15] MEDS: Carvedilol 25 MG TAB PO SCH (20:16)
[2019-10-15] MEDS ORDERED: DHA PO SCH (21:00)
[2019-10-15] MEDS ORDERED: EPA PO SCH (21:00)
[2019-10-15] MEDS ORDERED: OMEGA PO SCH (21:00)
[2019-10-15] MEDS ORDERED: Famotidine 20 MG TAB PO SCH (21:00)
[2019-10-15] MEDS ORDERED: Atorvastatin Calcium 40 MG TAB PO SCH (21:00)
[2019-10-15] MEDS ORDERED: FISH OIL PO SCH (21:00)
[2019-10-15] MEDS ORDERED: Amlodipine 10 MG TAB PO SCH (21:00)
[2019-10-15] MEDS ORDERED: hydrALAZINE 20 MG/ML VIAL SLOW IVP PRN (23:55)
[2019-10-16 04:33] LABS: Hemoglobin 11.9 g/dL (12.0-16.0); Platelet Count 194 thou/uL (130-400)
--- NOTE | 2019-10-16 07:35 | PDOC.HOSPP ---
- Subjective Encounter Date: 10/16/19 Encounter Time: 10:03 Subjective: Ms. Singleton is seen today for follow up of pre-syncopal episode and fall. She denies any ongoing dizziness or weakness. This morning she reports some left sided mid back pain where she hit herself when she fell. She describes this as a deep soreness. She was given Tramadol, but this did not seem to work. She was hesitant to take her prescribed [place], but she agrees to take this to alleviate her pain. No other complaints. - Objective Vital Signs & Weight: Vital Signs (12 hours) Temp Pulse Resp BP BP BP Pulse Ox 10/16/19 03:40 97.8 F 86 18 167/72 H 99 10/16/19 00:02 75 10/15/19 23:47 195/79 H 10/15/19 20:21 180/77 H 185/74 H 125/60 10/15/19 20:05 99.2 F 75 16 180/77 H 100 Weight Weight 126 lb 6.4 oz I&O: 10/15/19 10/16/19 10/17/19 06:59 06:59 06:59 Intake Total 942 2080 Balance 942 2080 Result Diagrams: 10/16/19 04:19 10/16/19 04:19 Hospitalist ROS - Medication Medications: Active Medications Generic Name Dose Route Start Last Admin Trade Name Freq PRN Reason Stop Dose Admin Acetaminophen 650 mg 10/14/19 19:00 10/15/19 20:16 Tylenol PO 650 mg Q4H PRN Administration Headache/Fever/Mild Pain (1-3) Amlodipine Besylate 10 mg 10/15/19 21:00 10/15/19 20:15 Norvasc PO 10 mg HS JAYMIE Administration Apixaban 2.5 mg 10/15/19 21:00 10/15/19 20:16 Eliquis PO 2.5 mg BID JAYMIE Administration Atorvastatin Calcium 40 mg 10/15/19 21:00 10/15/19 20:16 Lipitor PO 40 mg HS JAYMIE Administration Carvedilol 25 mg 10/15/19 21:00 10/15/19 20:16 Coreg PO 25 mg BID JAYMIE Administration Fish Oil 1,000 mg 10/15/19 21:00 10/15/19 20:16 Fish Oil PO 1,000 mg BID JAYMIE Administration Hydralazine HCl 10 mg 10/15/19 23:55 10/16/19 00:02 Apresoline SLOW IVP 10 mg Q4H PRN Administration SBP > 180 or DBP > 105 Ceftriaxone Sodium 1 gm/ 100 mls @ 200 mls/hr 10/14/19 20:00 10/15/19 20:14 Sodium Chloride IVPB 100 mls Q24HR JAYMIE Administration Lorazepam 0.5 mg 10/15/19 14:53 10/15/19 15:11 Ativan SLOW IVP 0.5 mg Q6H PRN Administration Anxiety/Agitation Sodium Chloride 10 ml 10/14/19 21:00 10/15/19 20:16 Flush - Normal Saline IVF 10 ml Q12HR JAYMIE Administration Tramadol HCl 50 mg 10/15/19 12:53 10/16/19 05:00 Ultram PO 50 mg Q6H PRN Administration Pain - Exam General Appearance: NAD, awake alert Eye: PERRL, anicteric sclera ENT: normocephalic atraumatic Neck: supple Heart: RRR Respiratory: CTAB Gastrointestinal: soft, non-tender, non-distended, normal bowel sounds Extremities: no cyanosis, no edema Musculoskeletal - other findings: No tenderness to palpation of the spinal processes or paraspinal muscles. Psychiatric: normal affect, normal behavior, A&O x 3 Hosp A/P (1) Pre-syncope Status: Acute (2) UTI (urinary tract infection) Status: Acute (3) Atrial fibrillation Code(s): I48.91 - UNSPECIFIED ATRIAL FIBRILLATION Status: Chronic (4) Benign hypertension Code(s): I10 - ESSENTIAL (PRIMARY) HYPERTENSION Status: Chronic - Plan * Pre-Syncope- Possibly due to orthostatic hypotension. There was a question of subclavian steal, but MRA showed no subclavian or carotid stenosis, only some tortuous arteries. * HTN- will re-start her blood pressure medications, but may need to adjust the doses. Will recheck orthostatics. * UTI- culture positive for Citrobacter Koseri. continue Rocephin. * AFIB - her heart rate is stable continue Carvediolol and Eliquis * pulmonary fibrosis: patient is following with Dr. Welch * back pain: patient is taking Tramadol and [place] PRN. Rib XRay was negative for any fractures. Will continue to monitor. * * * Patient was seen and examined and discussed with Lali Irizarry MS-3. I agree with her assessment. Patient is feeling better today. She has some pain in her rib cage which she attributes to the fall. Her exam is unchanged. MRA results noted. Echo as well . The presyncope was likely the result of orthostatic hypotension. This will be managed conservatively, and she has been instructed to follow-up with her primary care provider to determine what a optimal blood pressure will be for her.
[2019-10-16] MEDS ORDERED: [UNRECOGNIZED DRUG - OTHER] PO SCH (09:00)
[2019-10-16] MEDS ORDERED: Lisinopril 20 MG TAB PO SCH (09:00)
[2019-10-16] MEDS ORDERED: Multivitamin W/ Minerals 1 TAB PO SCH (09:00)
[2019-10-16] MEDS: Apixaban 2.5 MG TAB PO SCH (09:24)
[2019-10-16] MEDS: Carvedilol 25 MG TAB PO SCH (09:24)
[2019-10-16] MEDS: HYDROcodone/Acetaminophen 5/325 mg Tablet PO PRN ×2 (09:24→14:16)
[2019-10-16] MEDS: Fish Oil 1,000 MG CAP PO SCH (09:24)
[2019-10-16 11:59] VITALS: TEMP 98.3
[2019-10-16 15:50] VITALS: BP 128/62
--- NOTE | 2019-10-16 18:40 | CON ---
DATE OF CONSULTATION: 10/15/2019 REASON FOR CONSULTATION: Syncope. HISTORY OF PRESENT ILLNESS: Ms. Singleton is a very pleasant 83-year-old woman who I have seen and evaluated in the past. She has a history of atrial fibrillation, status post ablation. She also has a history of pulmonary fibrosis. She had a recent syncopal episode. She has been on Lasix. She states when she stood up, she had lightheadedness and dizziness. While in the emergency room she did tilt 50 points from lying to standing. PAST MEDICAL HISTORY: As above including hypertension, hyperlipidemia, recent TIA. PAST SURGICAL HISTORY: Rotator cuff surgery, cataract surgery, previous atrial fibrillation. SOCIAL HISTORY: No current tobacco or alcohol use. ALLERGIES: NONE. HOME MEDICATIONS: 1. Coreg. 2. Lisinopril. 3. Lasix. 4. Amlodipine. 5. Eliquis. 6. Pepcid. 7. Xanax. 8. Atorvastatin. REVIEW OF SYSTEMS: A 10-point review of systems is reviewed as above, otherwise negative. PHYSICAL EXAMINATION: GENERAL: Patient is a pleasant female who is in no acute distress. The patient appears their stated age. VITAL SIGNS: Blood pressure 110/70 pulse 80 respirations 20. NEUROLOGIC: The patient is alert and oriented x3 with no focal neurologic deficits. HEENT: Sclerae without icterus. Mouth has moist mucous membranes with normal pallor. NECK: No JVD. Carotid upstroke brisk. No bruits bilaterally. LUNGS: Clear to auscultation with unlabored respirations. BACK: No scoliosis or kyphosis. CARDIAC: Regular rate and rhythm with normal S1 and S2. No S3 or S4 noted. No significant rubs, murmurs, thrills, or gallops noted throughout the precordium. PMI is not displaced. There is no parasternal heave. ABDOMEN: Soft, nontender, nondistended. No peritoneal signs present. No hepatosplenomegaly. No abnormal striae. EXTREMITIES: 2+ femoral and 2+ dorsalis pedis pulses. No cyanosis, clubbing, or edema. SKIN: No gross abnormalities. LABS: Creatinine 1.05, hemoglobin 11.9. IMPRESSION: 1. Syncope. 2. Atrial fibrillation. 3. Pulmonary fibrosis. RECOMMENDATIONS: Overall LVEF appeared normal on recent echo. She likely is dehydrated. Her creatinine was slightly elevated from previous. I recommend fluid hydration. If stable, it will be okay from my standpoint to discharge home with close outpatient followup in a.. Job ID: [id number]
--- NOTE | 2019-10-22 16:46 | EKG ---
Test Reason : Blood Pressure : / mmHG Vent. Rate : 074 BPM Atrial Rate : 074 BPM P-R Int : 176 ms QRS Dur : 096 ms QT Int : 380 ms P-R-T Axes : 088 017 055 degrees QTc Int : 421 ms Normal sinus rhythm Normal ECG Confirmed by KOJO BROWN DO ([id number]), makeup editor MICHAEL CHOI ([id number]) on 10/22/2019 4:45:23 PM Referred By: Confirmed By:KOJO BROWN DO
== END 2019-10-16 15:22 | disposition home or self-care (01) ==
LOC: ERS 16:04 → 2NO 18:23
PROVIDERS: ADMIT Internal Medicine; ATTEND Internal Medicine
DX: R55 Syncope and collapse (principal); I48.20 Chronic atrial fibrillation, unspecified; J84.10 Pulmonary fibrosis, unspecified; E78.5 Hyperlipidemia, unspecified; N39.0 Urinary tract infection, site not specified; I10 Essential (primary) hypertension; N17.9 Acute kidney failure, unspecified; F41.9 Anxiety disorder, unspecified; F32.9 Major depressive disorder, single episode, unspecified; I65.21 Occlusion and stenosis of right carotid artery; Z86.73 Personal history of transient ischemic attack (TIA), and cerebral infarction without residual deficits; Z87.891 Personal history of nicotine dependence; Z79.01 Long term (current) use of anticoagulants; Z79.899 Other long term (current) drug therapy; Z91.048 Other nonmedicinal substance allergy status
CPT/HCPCS: 70549; 71101; 80048; 80061; 82565; 83735; 83880; 84484 ×2; 85014; 85018; 85025; 85049; 85610; 85730; 87077; 87086; 87186; 93005; 93306; 93880; 94760 ×2; 96365; 96366; 96375 ×3; 97139 ×4; 97535 ×2; 99285; G0378 ×4; 36415; 80053; 81003; 81015; 84443; 96374; A9579; J0360; J0696; J2060; J3010; J3490

== ENCOUNTER 2020-02-18 13:19 | Inpatient (IN) | payer MEDICARE ==
[2020-02-18] MEDS ORDERED: Dexamethasone 10 MG/ML VIAL ONE (14:15)
[2020-02-18 14:23] LABS: #Basophils 0.1 thou/uL (0.0-0.2); #Eosinphils 0.2 thou/uL (0.0-0.7); #Lymphocytes 1.8 thou/uL (1.20-3.40); #Monocytes 0.9 thou/uL (0.11-0.59); #Neutrophils 6.6 thou/uL (1.40-6.50); %Basophils 0.7 % (0.0-1.0); %Eosinophils 1.9 % (0.0-10.0); %Lymphocytes 19.2 % (21.0-51.0); %Monocytes 9.2 % (0.0-10.0); Hemoglobin 12.8 g/dL (12.0-16.0); Mean Corpuscular HGB CONC 35.9 g/dL (32.0-36.0); Mean Corpuscular Hemoglobin 35.3 pg (27.0-31.0); Mean Corpuscular Volume 98.3 fL (78.0-98.0); Mean Platelet Volume 7.6 fL (7.4-10.4); Platelet Count 272 thou/uL (130-400); RBC Distribution Width 14.1 % (11.5-14.5); Red Blood Cell (RBC) Count 3.63 mill/uL (4.20-5.40); White Blood Cell (WBC) Count 9.5 thou/uL (4.8-10.8)
[2020-02-18] MEDS ORDERED: Albuterol 200 PUFF (6.7GM INHALER) ONE (14:23)
[2020-02-18 14:41] LABS: ALT (SGPT) 19 U/L (8-55); AST (SGOT) 23 U/L (5-34); Albumin 3.8 g/dL (3.4-4.8); Alkaline Phosphatase 159 U/L (40-110); Anion Gap 14 mmol/L (10-20); BUN (Urea Nitrogen) 27 mg/dL (9.8-20.1); Bilirubin, Total 0.5 mg/dL (0.2-1.2); Calc. Creatinine Clearance 0 mL/min (70-130); Calcium 9.7 mg/dL (7.8-10.44); Carbon Dioxide 35 mmol/L (23-31); Chloride 95 mmol/L (98-107); Globulin 5.1 g/dL (2.4-3.5); Glucose 112 mg/dL (83-110); Potassium 4.1 mmol/L (3.5-5.1); Protein, Total 8.9 g/dL (6.0-8.3); Sodium 140 mmol/L (136-145)
--- NOTE | 2020-02-18 14:49 | RAD ---
EXAM: Chest one view: HISTORY: Shortness of breath worsening, COPD COMPARISON: 12/21/2019 FINDINGS: Heart size: Stable minimal cardiomegaly. Lungs: Very extensive bilateral reticular nodular interstitial lung disease evidence for extensive ch ronic interstitial process including interstitial fibrosis. No confluent pneumonia or significant pleural effusion. Possibility of concurrent interstitial pneumonitis is not excluded from this study, however, appearan ce appears stable from old studies. IMPRESSION: Evidence for overall stable extensive chronic interstitial lung disease.
[2020-02-18 15:18] LABS: Bilirubin Negative (Negative); Blood, Urine Negative (Negative); Clarity Turbid (Clear); Glucose, Urine (Dipstick) Normal (Negative); Ketone, Urine Negative (Negative); Leukocyte Negative Leu/uL (Negative); Nitrite Negative (Negative); Protein, Urine (Dipstick) 10 mg/dL (Neg-Trace); Specific Gravity, Urine 1.004 (1.002-1.036); Urobilinogen Normal mg/dL (Less than 2)
[2020-02-18] MEDS ORDERED: cloNIDine 0.1 MG TAB PO PRN ×2 (15:43→20:02)
[2020-02-18] MEDS ORDERED: Furosemide 20 MG/2 ML VIAL ONE (15:44)
[2020-02-18] MEDS ORDERED: Acetaminophen 325 MG TAB PO PRN (15:44)
[2020-02-18] MEDS ORDERED: Nitroglycerin 2% Ointment 1 INCH/1 GM Packet ONE (15:44)
[2020-02-18] MEDS ORDERED: Calcium Carbonate 500 MG ChewTAB PO PRN (15:44)
[2020-02-18] MEDS ORDERED: Ondansetron PF 4 MG/2 ML Vial IVP PRN (15:44)
[2020-02-18] MEDS ORDERED: Ondansetron ODT 4 MG TAB PO PRN (15:44)
[2020-02-18] MEDS ORDERED: Cefepime 2 GM VIAL ONE (15:45)
[2020-02-18] MEDS ORDERED: Nitroglycerin 2% Ointment 1 INCH/1 GM Packet TOP PRN (15:48)
[2020-02-18] MEDS ORDERED: Azithromycin 250 MG TAB ONE (15:53)
[2020-02-18] MEDS ORDERED: Amlodipine 5 MG TAB ONE (15:54)
[2020-02-18] MEDS ORDERED: Bacteriostatic Water 30 ML VIAL FS PRN (17:00)
[2020-02-18] MEDS: Nitroglycerin 2% Ointment 1 INCH/1 GM Packet TOP SCH (17:44)
[2020-02-18] MEDS ORDERED: methylPREDNISolone Sod Succ 40 MG VIAL ONE (17:46)
[2020-02-18] MEDS: Calcium Carbonate 600 MG + Vit D TAB PO SCH (17:53)
[2020-02-18 17:55] LABS: SARS-CoV-2 NAA Rapid Test Not Detected (NotDetected)
[2020-02-18] MEDS ORDERED: methylPREDNISolone Sod Succ/PF 125 MG/2 ML VIAL IVP SCH (18:00)
[2020-02-18] MEDS ORDERED: methylPREDNISolone Sod Succ 40 MG VIAL IVP SCH (18:00)
[2020-02-18] MEDS: Famotidine 20 MG TAB PO SCH (20:52)
[2020-02-18] MEDS: Atorvastatin Calcium 40 MG TAB PO SCH (20:52)
[2020-02-18] MEDS: Senokot S 8.6-50 MG TAB PO SCH (20:52)
[2020-02-18] MEDS: ALPRAZolam 0.25 MG TAB PO PRN (20:52)
[2020-02-18] MEDS: Carvedilol 6.25 MG TAB PO SCH (20:53)
[2020-02-18] MEDS: Apixaban 2.5 MG TAB PO SCH (20:53)
[2020-02-18] MEDS: methylPREDNISolone Sod Succ 40 MG VIAL IVP SCH (20:59)
[2020-02-18] MEDS ORDERED: Carvedilol 25 MG TAB PO SCH (21:00)
[2020-02-18 23:23] VITALS: BMI 19.4
[2020-02-19] MEDS: Nitroglycerin 2% Ointment 1 INCH/1 GM Packet TOP SCH (00:04)
[2020-02-19] MEDS: methylPREDNISolone Sod Succ 40 MG VIAL IVP SCH ×3 (04:55→21:15)
[2020-02-19] MEDS: Furosemide 20 MG/2 ML VIAL SLOW IVP SCH ×2 (04:55→13:10)
[2020-02-19] MEDS: Cefepime 1 GM in Sodium Chloride 0.9% 100 ML IVPB SCH ×2 (04:55→16:43)
[2020-02-19] MEDS: ALPRAZolam 0.25 MG TAB PO PRN ×4 (04:56→23:36)
[2020-02-19 05:04] LABS: #Lymphocytes 0.8 thou/uL (1.20-3.40); #Monocytes 0.1 thou/uL (0.11-0.59); #Neutrophils 3.9 thou/uL (1.40-6.50); %Basophils 0.2 % (0.0-1.0); %Eosinophils 0.2 % (0.0-10.0); %Lymphocytes 16.3 % (21.0-51.0); %Monocytes 1.7 % (0.0-10.0); %Neutrophils 81.6 % (42.0-75.0); Hemoglobin 11.4 g/dL (12.0-16.0); Mean Corpuscular HGB CONC 35.2 g/dL (32.0-36.0); Mean Corpuscular Hemoglobin 35.2 pg (27.0-31.0); Mean Platelet Volume 7.6 fL (7.4-10.4); Platelet Count 243 thou/uL (130-400); RBC Distribution Width 14.1 % (11.5-14.5); Red Blood Cell (RBC) Count 3.23 mill/uL (4.20-5.40); White Blood Cell (WBC) Count 4.7 thou/uL (4.8-10.8)
[2020-02-19 05:25] LABS: ALT (SGPT) 13 U/L (8-55); AST (SGOT) 17 U/L (5-34); Albumin 3.3 g/dL (3.4-4.8); Alkaline Phosphatase 126 U/L (40-110); Anion Gap 13 mmol/L (10-20); BUN (Urea Nitrogen) 31 mg/dL (9.8-20.1); Bilirubin, Total 0.4 mg/dL (0.2-1.2); Calc. Creatinine Clearance 29 mL/min (70-130); Carbon Dioxide 32 mmol/L (23-31); Chloride 95 mmol/L (98-107); Globulin 4.3 g/dL (2.4-3.5); Glucose 195 mg/dL (83-110); Magnesium 2.3 mg/dL (1.6-2.6); Potassium 3.9 mmol/L (3.5-5.1); Protein, Total 7.6 g/dL (6.0-8.3); Sodium 136 mmol/L (136-145)
--- NOTE | 2020-02-19 05:36 | PDOC.HHP ---
Hospitalist HPI - History of Present Illness Shortness of breath History of Present Illness: Patient is a 84-year-old female with chronic diastolic heart failure, interstitial fibrosis, chronic hypoxic respiratory failure on home oxygen and paroxysmal atrial fibrillation presented to the hospital with gradual onset of shortness of breath over the last 2 months. Her symptoms got worse over the last 2-3 days. The shortness of breath is present on mild exertion. She felt generally weak and fatigued. No cough, fever, chills or worsening of her chronic leg swelling reported. She denies any orthopnea or paroxysmal nocturnal dyspnea. No syncope or palpitations reported. Patient is compliant with El iquis and denies any recent immobilization. She denies any sick contacts at the assisted living facility. Her O2 saturation in the emergency room was 86 percent on 4 L nasal cannula. In the emergency room patient was found to have elevated blood pressure with systolic in 190s requiring nitro patch and amlodipine. She also received Decadron, 20 mg Lasix, azithromycin and cefepime. Troponins were negative. PAST MEDICAL HISTORY: Pulmonary fibrosis Hypertension Hyperlipidemia Paroxysmal atrial fibrillation on Eliquis History of TIA Anxiety Claustrophobia PAST SURGICAL HISTORY: Cardiac ablation Hysterectomy Cataract surgery Rotator cuff surgery SOCIAL HISTORY: Patient currently lives at [facility]. She is full code. She makes her own decision with help of her family. Former smoker. Drinks alcohol socially FAMILY HISTORY: Negative for heart disease Allergies adhesive Allergy (Verified 10/14/19 22:37) adhesive tape Allergy (Verified 10/14/19 22:37) Rash per pt Resuscitation Status - Order Detail: 02/18/20 15:44 Resuscitation Status Routine Resuscitation Status: FULL: Full Resuscitation Vital Signs (12 hours) Temp Pulse Resp BP BP Pulse Ox 02/19/20 03:43 98.3 F 79 20 160/72 H 100 02/19/20 00:00 98.0 F 89 21 H 120/57 L 100 02/18/20 23:45 98 02/18/20 23:42 20 98 02/18/20 20:53 164/72 H 02/18/20 20:10 98.1 F 86 20 164/72 H 96 02/18/20 20:00 96 Weight Weight 117 lb Hospitalist ROS - Review of Systems All other systems reviewed; all pertinent +/- noted in HPI/Subj - Medication Medications: Medication Instructions Recorded Confirmed Type [place]-3/DHA/EPA/Fish Oil [Fish Oil 1 cap PO BID 10/09/17 10/14/19 History 500 mg Softgel] ALPRAZolam [Xanax] 0.25 mg PO TID PRN 01/02/19 10/14/19 History Amlodipine [Norvasc] 10 mg PO HS 01/02/19 10/14/19 History Atorvastatin Calcium 40 mg PO HS 01/02/19 10/14/19 History Carvedilol [Coreg] 25 mg PO BID 01/02/19 10/14/19 History Cholecalciferol (Vitamin D3) 2,000 unit PO DAILY 01/02/19 10/14/19 History [Vitamin D3] Lisinopril [Zestril] 20 mg PO DAILY 01/02/19 10/14/19 History Acetaminophen [Mapap] 500 mg PO Q6HR PRN 02/21/19 10/14/19 History Acetaminophen/Diphenhydramine 1 tab PO HS PRN 02/21/19 10/14/19 History [Tylenol Pm Ex-Strength Caplet] Apixaban [Eliquis] 2.5 mg PO BID #60 tab 02/21/19 10/14/19 Rx Famotidine [Pepcid] 20 mg PO BID 02/21/19 10/14/19 History Furosemide [Lasix] 40 mg PO DAILY 02/21/19 10/14/19 History Multivit-Min/FA/Lycopen/Lutein 1 tab PO DAILY 02/21/19 10/14/19 History [Adults 50 Plus Multivitamin] diphenhydrAMINE [Benadryl] 25 mg PO HS PRN 02/21/19 10/14/19 History traMADol HCl [Tramadol HCl] 50 mg PO Q6HR PRN 02/21/19 10/14/19 History - Exam General Appearance: ill appearing General - other findings: In mild respiratory distress at rest Eye: PERRL, anicteric sclera ENT: normocephalic atraumatic, no oropharyngeal lesions Neck: supple, no JVD, no thyromegaly, no lymphadenopathy Heart: RRR, no gallops, no rubs, murmur present Respiratory: no wheezes, rales (Inspiratory), rhonchi, tachypneic Gastrointestinal: soft, normal bowel sounds, no guarding, no rigidity Extremities: no cyanosis, no clubbing, 2+ LE edema Extremities - other findings: tenderness Skin: normal turgor Neurological: cranial nerve grossly intact, normal sensation to touch, no weakness, no focal deficits Musculoskeletal: generalized weakness Psychiatric: normal affect, A&O x 3 Hospitalist Results - Labs Result Diagrams: 02/19/20 04:32 02/19/20 04:32 Lab results: Laboratory Results - last 24 hr 02/18/20 17:15: Troponin I 0.020 02/18/20 14:58: SARS-CoV-2 Rap RNA(RT-PCR) Not Detected 02/18/20 14:55: Urine Color Light-Yellow, Urine Clarity Turbid A, Urine pH 8.0, Ur Specific [place] 1.004, Urine Protein 10, Urine Glucose (UA) Normal, Urine Ketones Negative, Urine Blood Negative, Urine Nitrite Negative, Urine Bilirubin Negative, Urine Urobilinogen Normal, Ur Leukocyte Esterase Negative 02/18/20 14:44: Lactic Acid 1.4 02/18/20 14:00: Ferritin 149.42 02/18/20 14:00: C-Reactive Protein 0.86 H 02/18/20 14:00: Lactate Dehydrogenase 274 H 02/18/20 14:00: B-Natriuretic Peptide 405.3 H 02/18/20 14:00: Sodium 140, Potassium 4.1, Chloride 95 L, Carbon Dioxide 35 H, Anion Gap 14, BUN 27 H, Creatinine 1.33 H, Estimated GFR (MDRD) 38, Glucose 112 H, Calcium 9.7, Total Bilirubin 0.5, AST 23, ALT 19, Alkaline Phosphatase 159 H, Serum Total Protein 8.9 H, Albumin 3.8, Globulin 5.1 H, Albumin/Globulin Ratio 0.7 L 02/18/20 14:00: WBC 9.5, RBC 3.63 L, Hgb 12.8, Hct 35.7 L, MCV 98.3 H, MCH 35.3 H, MCHC 35.9, RDW 14.1, Plt Count 272, MPV 7.6, Neutrophils % 69.0, Lymphocytes % 19.2 L, Monocytes % 9.2, Eosinophils % 1.9, Basophils % 0.7, Neutrophils # 6.6 H, Lymphocytes # 1.8, Monocytes # 0.9 H, Eosinophils # 0.2, Basophils # 0.1 02/18/20 14:00: D-Dimer 0.30 02/18/20 14:00: Troponin I 0.019 - EKG Interpretation EKG: Sinus rhythmreviewed by me - Radiology Interpretation Chest x-ray Status: image reviewed by me Additional Comment: Chronic changes with possible interstitial infiltrates Hospitalist H&P A/P - Plan Plan: Acute on chronic hypoxic respiratory failure Acute on chronic diastolic heart failure Suspected Pneumonia ?Gram-negative Interstitial fibrosis Paroxysmal atrial fibrillation on anticoagulation Hypertension with hypertensive urgency on admission Hypertensive heart disease Hyperlipidemia History of TIA Anxiety Claustrophobia CKD stage III Mitral regurgitationmoderate Mild to moderate tricuspid regurgitation Plan: Telemetry monitoring. Serial troponins. Nebulizer treatment every 4 hours with IV cefepime and azithromycin. IV steroids. IV Lasix for heart failure. At resection. Restart carvedilol, lisinopril and Eliquis. Verify home medications. Nitropatch for now. Monitor labs on the daily basis. Fall precautions. Consult cardiology and pulmonary. Patient had a recent echo that showed ejection fraction 55-60 percent with mild concentric left ventricular hypertrophy and moderate mitral regurgitation
[2020-02-19 05:43] LABS: Thyroid Stimulating Hormone 0.3122 uIU/mL (0.35-4.94)
[2020-02-19] MEDS: Mometasone 200 MCG/Formoterol 5 MCG 120 PUFF INHALER INH SCH ×2 (07:44→19:42)
[2020-02-19] MEDS: Senokot S 8.6-50 MG TAB PO SCH ×2 (08:29→20:48)
[2020-02-19] MEDS: Aspirin 81 mg Enteric Coated Tablet PO SCH (08:29)
[2020-02-19] MEDS: Famotidine 20 MG TAB PO SCH (08:29)
[2020-02-19] MEDS: Apixaban 2.5 MG TAB PO SCH ×2 (08:29→20:47)
[2020-02-19] MEDS: Calcium Carbonate 600 MG + Vit D TAB PO SCH ×2 (08:29→16:43)
[2020-02-19] MEDS: Carvedilol 6.25 MG TAB PO SCH ×2 (08:29→20:48)
[2020-02-19] MEDS: Multivit, Therapeutic 1 TAB PO SCH (08:29)
[2020-02-19] MEDS: Azithromycin 250 MG TAB PO SCH (08:29)
--- NOTE | 2020-02-19 08:48 | CON ---
DATE OF CONSULTATION: REASON FOR CONSULTATION: Shortness of breath. HISTORY OF PRESENT ILLNESS: Ms. Singleton is a very pleasant 84-year-old woman, who I have seen and evaluated in the past. She has a history of atrial fibrillation, status post ablation. She is currently on anticoagulation therapy. She recently presented with increased fatigue and shortness of breath. She does have underlying idiopathic pulmonary fibrosis. She has been in and out of the hospital in addition to rehab over the last 6 weeks. She has had increased fatigue present. She was seen and evaluated in the emergency room for the above with markedly elevated blood pressure. Blood pressure now appears more stable. PAST MEDICAL HISTORY: Hypertension, previous SVT, atrial fibrillation, osteopenia, previous seizure disorder, atrial fibrillation status post ablation, L1 compression fracture, left bundle-branch block, CAD, chronic kidney disease, idiopathic pulmonary fibrosis, previous CVA and TIA. HOME MEDICATIONS: Include; 1. Amlodipine. 2. Lasix. 3. Eliquis. 4. Clonidine. 5. Multivitamin. 6. Famotidine. 7. Carvedilol. 8. Lisinopril. 9. Vitamin D3. 10. Atorvastatin. 11. [place]-3. 12. Breo. 13. Tramadol. 14. Tylenol. 15. Xanax. 16. Fish oil. 17. Benadryl. PAST SURGICAL HISTORY: As above including PVAI x3, hysterectomy, right rotator cuff repair, cataract removal. SOCIAL HISTORY: Previous tobacco use. REVIEW OF SYSTEMS: Ten-point review of systems is reviewed as above, otherwise negative. PHYSICAL EXAMINATION: GENERAL: Patient is a pleasant woman, who is in no acute distress. The patient appears their stated age. VITAL SIGNS: Blood pressure 167/72, pulse 86, and temperature 97.6. NEUROLOGIC: The patient is alert and oriented x3 with no focal neurologic deficits. HEENT: Sclerae without icterus. Mouth has moist mucous membranes with normal pallor. NECK: No JVD. Carotid upstroke brisk. No bruits bilaterally. LUNGS: Clear to auscultation with unlabored respirations. BACK: No scoliosis or kyphosis. CARDIAC: Regular rate and rhythm with normal S1 and S2. No S3 or S4 noted. No significant rubs, murmurs, thrills, or gallops noted throughout the precordium. PMI is not displaced. There is no parasternal heave. ABDOMEN: Soft, nontender, nondistended. No peritoneal signs present. No hepatosplenomegaly. No abnormal striae. EXTREMITIES: 2+ femoral and 2+ dorsalis pedis pulses. No cyanosis, clubbing, or edema. SKIN: No gross abnormalities. PERTINENT LABORATORY DATA: Hemoglobin 11.4, hematocrit 32.4. Creatinine 1.18 with a GFR of 44. Albumin 3.3. TSH 0.3. IMPRESSION: 1. Shortness of breath. 2. Diastolic dysfunction. 3. Hypertension. 4. Idiopathic pulmonary fibrosis. RECOMMENDATIONS: Ms. Singleton's symptoms are likely multifactorial. She does have idiopathic pulmonary fibrosis and did come in with markedly elevated blood pressure. Increased blood pressure may be secondary to her underlying condition or may be the primary cause. At this point, we would make sure and place her on her outpatient medication and make adjustments if needed. Please see above list. Continue anticoagulation therapy in addition to aspirin and atorvastatin. She has been placed on Zithromax. Job ID: [id number]
[2020-02-19] MEDS ORDERED: Lisinopril 10 MG TAB PO SCH (09:00)
[2020-02-19] MEDS ORDERED: diphenhydrAMINE 25 MG CAP PO PRN (14:07)
[2020-02-19] MEDS ORDERED: Polyethylene Glycol 3350 17 GM Packet PO PRN (14:08)
--- NOTE | 2020-02-19 14:11 | PDOC.HOSPP ---
- Subjective Encounter Date: 02/19/20 Encounter Time: 09:00 Subjective: Patient seen and examined for respiratory failure. Shortness of breath improving. Denies any chest pain, palpitations, syncope or orthopnea. No fever or chills reported - Objective Vital Signs & Weight: Vital Signs (12 hours) Temp Pulse Pulse Pulse Resp BP BP 02/19/20 11:17 97.9 F 91 18 02/19/20 10:49 90 16 02/19/20 09:54 91 93 142/65 H 155/66 H 02/19/20 09:05 91 93 181/77 H 188/79 H 02/19/20 08:25 97.6 F 86 18 02/19/20 07:44 89 14 02/19/20 03:43 98.3 F 79 20 BP Pulse Ox Pulse Ox Pulse Ox 02/19/20 11:17 158/68 H 98 02/19/20 10:49 02/19/20 09:54 99 96 02/19/20 09:05 96 81 L 02/19/20 08:25 167/72 H 98 02/19/20 07:44 02/19/20 03:43 160/72 H 100 Weight Admit Weight 117 lb Weight 117 lb Result Diagrams: 02/19/20 04:32 02/19/20 04:32 Additional Labs: Abnormal Lab Results - Last 48 hrs 02/18/20 14:00: RBC 3.63 L, Hct 35.7 L, MCV 98.3 H, MCH 35.3 H, Lymphocytes % 19.2 L, Neutrophils # 6.6 H, Monocytes # 0.9 H 02/18/20 14:00: Chloride 95 L, Carbon Dioxide 35 H, BUN 27 H, Creatinine 1.33 H, Alkaline Phosphatase 159 H, Serum Total Protein 8.9 H, Globulin 5.1 H, Albumin/Globulin Ratio 0.7 L 02/18/20 14:00: B-Natriuretic Peptide 405.3 H 02/18/20 14:00: Lactate Dehydrogenase 274 H 02/18/20 14:00: C-Reactive Protein 0.86 H 02/18/20 14:55: Urine Clarity Turbid A 02/19/20 04:32: Chloride 95 L, Carbon Dioxide 32 H, BUN 31 H, Creatinine 1.18 H, Alkaline Phosphatase 126 H, Albumin 3.3 L, Globulin 4.3 H, Albumin/Globulin Ratio 0.8 L 02/19/20 04:32: WBC 4.7 L, RBC 3.23 L, Hgb 11.4 L, Hct 32.4 L, MCV 100.0 H, MCH 35.2 H, Neutrophils % 81.6 H, Lymphocytes % 16.3 L, Lymphocytes # 0.8 L, Monocytes # 0.1 L 02/19/20 04:32: TSH 3rd Generation 0.3122 L Radiology Reviewed by me: Yes (Chest x-rayquestionable infiltrate/chronic changes) EKG Reviewed by me: Yes (Sinus rhythm on telemetry) Hospitalist ROS - Review of Systems Cardiovascular: denies: chest pain, palpitations, orthopnea, paroxysmal noc. dyspnea, edema, light headedness, other Gastrointestinal: denies: nausea, vomiting, abdominal pain, diarrhea, constipation, melena, hematochezia, other Genitourinary: denies: dysuria, frequency, incontinence, hematuria, retention, other All other systems reviewed; all pertinent +/- noted in HPI/Subj - Medication Medications: Active Medications Generic Name Dose Route Start Last Admin Trade Name Freq PRN Reason Stop Dose Admin Albuterol/Ipratropium 3 ml 02/18/20 22:30 02/19/20 10:49 Ipratropium/Albuterol Sulfate 3 Ml Neb NEB 3 ml [id number] JAYMIE Administration Alprazolam 0.25 mg 02/18/20 15:54 02/19/20 11:15 Alprazolam 0.25 Mg Tab PO 0.25 mg TID PRN Administration Anxiety Apixaban 2.5 mg 02/18/20 21:00 02/19/20 08:29 Apixaban 2.5 Mg Tab PO 2.5 mg BID JAYMIE Administration Aspirin 81 mg 02/19/20 09:00 02/19/20 08:29 Aspirin 81 Mg Enteric Coated Tablet PO 81 mg DAILY JAYMIE Administration Atorvastatin Calcium 40 mg 02/18/20 21:00 02/18/20 20:52 Atorvastatin Calcium 40 Mg Tab PO 40 mg HS JAYMIE Administration Azithromycin 500 mg 02/19/20 09:00 02/19/20 08:29 Azithromycin 250 Mg Tab PO 02/25/20 09:01 500 mg DAILY JAYMIE Administration Calcium/Vitamin D 1 tab 02/18/20 17:00 02/19/20 08:29 Calcium Carbonate 600 Mg + Vit D Tab PO 1 tab BID-WM JAYMIE Administration Carvedilol 12.5 mg 02/18/20 21:00 02/19/20 08:29 Carvedilol 6.25 Mg Tab PO 12.5 mg BID JAYMIE Administration Furosemide 20 mg 02/19/20 06:00 02/19/20 13:10 Furosemide 20 Mg/2 Ml Vial SLOW IVP 20 mg 0600,1400 JAYMIE Administration Cefepime HCl 1 gm/ Sodium 100 mls @ 200 mls/hr 02/19/20 04:00 02/19/20 04:55 Chloride IVPB 100 mls 0400,1600 JAYMIE Administration Lisinopril 10 mg 02/19/20 09:00 02/19/20 08:29 Lisinopril 10 Mg Tab PO 10 mg DAILY JAYMIE Administration Methylprednisolone Sodium Succinate 20 mg 02/18/20 22:00 02/19/20 13:10 Methylprednisolone Sod Succ 40 Mg Vial IVP 20 mg Q8HR JAYMIE Administration Mometasone Furoate/Formoterol Fumar 2 puff 02/19/20 06:30 02/19/20 07:44 Mometasone 200 Mcg/Formoterol 5 Mcg 120 Puff Inhaler INH 2 puff BID-RT JAYMIE Administration Multivitamins 1 tab 02/19/20 09:00 02/19/20 08:29 Multivit, Therapeutic 1 Tab PO 1 tab DAILY JAYMIE Administration Senna/Docusate Sodium 1 tab 02/18/20 21:00 02/19/20 08:29 Senokot S 8.6-50 Mg Tab PO 1 tab BID JAYMIE Administration - Exam General Appearance: ill appearing Neck: supple Heart: RRR, no gallops, no rubs, normal peripheral pulses Respiratory: no wheezes, rales, rhonchi, tachypneic Gastrointestinal: soft, non-distended, normal bowel sounds, no guarding, no rigidity Extremities: no cyanosis, no clubbing, 1+ LE edema Neurological: cranial nerve grossly intact, no new deficit Psychiatric: normal affect, A&O x 3 Hosp A/P - Plan Acute on chronic hypoxic respiratory failure Acute on chronic diastolic heart failure Suspected Pneumonia ?Gram-negative Interstitial fibrosis Paroxysmal atrial fibrillation on anticoagulation Hypertension with hypertensive urgency on admission Hypertensive heart disease Hyperlipidemia History of TIA Anxiety Claustrophobia CKD stage III Mitral regurgitationmoderate Mild to moderate tricuspid regurgitation Plan: Continue IV Lasix. Continue IV cefepime, azithromycin with IV steroids. Continue nebulizer treatment with Dulera. Discontinue Nitropatch. Continue aspirin, carvedilol, lisinopril and Eliquis. Await cardiology and pulmonary input. Recheck labs in a.m. Continue other medications as above
--- NOTE | 2020-02-19 16:56 | CON ---
DATE OF CONSULTATION: 02/19/2020 HISTORY: Ms. Singleton is an 84-year-old female, with interstitial lung disease. It is unclear at this time whether or not she has usual interstitial pneumonitis, which she probably does. She presented with shortness of breath going back over a few weeks. Last few days have been worse. She was significantly hypertensive in the emergency room, but in theory, this could be related to work of breathing. She is much improved at this time. PAST MEDICAL HISTORY: Remarkable for: 1. Atrial fibrillation. 2. History of an AFib ablation. 3. History of hypertension. 4. History of osteopenia. 5. History of seizure disorder. 6. History of osteoporosis with compression fractures. 7. History of bundle-branch block (left). 8. History of coronary artery disease. 9. Chronic kidney disease. 10. 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 She is not a smoker or drinker. PAST SURGICAL HISTORY: Remarkable for hysterectomy, ablation, rotator cuff repair, and cataract surgery. SOCIAL HISTORY: She did smoke in the distant past. REVIEW OF SYSTEMS: 10-point review of systems otherwise negative. PHYSICAL EXAMINATION: GENERAL: She is in no distress. She is able to talk in complete sentences. VITAL SIGNS: She is afebrile. Heart rate is in the 90s, blood pressure rate is in the teens, oximetry is 98% on 3 L, and blood pressure 142/65. HEAD AND NECK EXAM: Unremarkable. LUNGS: Clear anteriorly. She has fine crackles in both lung bases. HEART: Regular rhythm. There is grade 1/6 to 2/6 systolic murmur. ABDOMEN: Soft and nontender. EXTREMITIES: Without clubbing, cyanosis, or edema. IMPRESSION: 1. Pulmonary fibrosis. 2. Possible coexistent pulmonary infection, but I would wonder given the duration of her symptoms and her dramatic improvement with control of her blood pressure, this was not a bigger factor. We need to make sure her blood pressure stays controlled. Probably in 24 hours, we can convert her to p.o. steroids and p.o. antibiotics. Hopefully, we get her home by this weekend. It is likely if she had pneumonia, she would not be improved this quickly. She needs physical therapy. Once she starts walking around, we will get a better idea of how she is doing. She walked to the door and back today, so we will see what she does with therapy tomorrow. TIME SPENT: This is a 50-minute consult, 50% of the time spent on the unit coordinating care. Job ID: [id number] [email or web address]
[2020-02-19] MEDS: Amlodipine 5 MG TAB PO SCH (20:47)
[2020-02-19] MEDS: Atorvastatin Calcium 40 MG TAB PO SCH (20:48)
[2020-02-20 04:44] LABS: #Lymphocytes 0.9 thou/uL (1.20-3.40); #Monocytes 0.6 thou/uL (0.11-0.59); #Neutrophils 10.3 thou/uL (1.40-6.50); %Eosinophils 0.1 % (0.0-10.0); %Lymphocytes 7.8 % (21.0-51.0); %Monocytes 4.6 % (0.0-10.0); %Neutrophils 87.4 % (42.0-75.0); Hemoglobin 12.1 g/dL (12.0-16.0); Mean Corpuscular HGB CONC 34.3 g/dL (32.0-36.0); Mean Corpuscular Hemoglobin 34.3 pg (27.0-31.0); Mean Platelet Volume 7.6 fL (7.4-10.4); Platelet Count 266 thou/uL (130-400); RBC Distribution Width 14.3 % (11.5-14.5); Red Blood Cell (RBC) Count 3.52 mill/uL (4.20-5.40); White Blood Cell (WBC) Count 11.8 thou/uL (4.8-10.8)
[2020-02-20 05:00] LABS: ALT (SGPT) 14 U/L (8-55); AST (SGOT) 30 U/L (5-34); Albumin 3.4 g/dL (3.4-4.8); Alkaline Phosphatase 130 U/L (40-110); Anion Gap 10 mmol/L (10-20); BUN (Urea Nitrogen) 29 mg/dL (9.8-20.1); Bilirubin, Total 0.4 mg/dL (0.2-1.2); Calc. Creatinine Clearance 29 mL/min (70-130); Calcium 9.2 mg/dL (7.8-10.44); Carbon Dioxide 36 mmol/L (23-31); Chloride 96 mmol/L (98-107); Globulin 4.4 g/dL (2.4-3.5); Glucose 137 mg/dL (83-110); Potassium 3.6 mmol/L (3.5-5.1); Protein, Total 7.8 g/dL (6.0-8.3); Sodium 138 mmol/L (136-145)
[2020-02-20] MEDS: Cefepime 1 GM in Sodium Chloride 0.9% 100 ML IVPB SCH ×2 (05:04→15:12)
[2020-02-20] MEDS: Furosemide 20 MG/2 ML VIAL SLOW IVP SCH ×2 (05:05→15:12)
[2020-02-20] MEDS: methylPREDNISolone Sod Succ 40 MG VIAL IVP SCH ×2 (05:06→15:13)
[2020-02-20] MEDS ORDERED: Lisinopril 10 MG TAB PO SCH (06:58)
[2020-02-20] MEDS: Mometasone 200 MCG/Formoterol 5 MCG 120 PUFF INHALER INH SCH ×2 (07:08→19:30)
[2020-02-20] MEDS: Azithromycin 250 MG TAB PO SCH (08:21)
[2020-02-20] MEDS: Senokot S 8.6-50 MG TAB PO SCH ×2 (08:21→20:03)
[2020-02-20] MEDS: Famotidine 20 MG TAB PO SCH (08:21)
[2020-02-20] MEDS: Lisinopril 20 MG TAB PO SCH (08:21)
[2020-02-20] MEDS: Aspirin 81 mg Enteric Coated Tablet PO SCH (08:22)
[2020-02-20] MEDS: Polyethylene Glycol 3350 17 GM Packet PO SCH (08:22)
[2020-02-20] MEDS: Multivit, Therapeutic 1 TAB PO SCH (08:22)
[2020-02-20] MEDS: Calcium Carbonate 600 MG + Vit D TAB PO SCH ×2 (08:22→16:18)
[2020-02-20] MEDS: Carvedilol 6.25 MG TAB PO SCH (08:23)
[2020-02-20] MEDS: Apixaban 2.5 MG TAB PO SCH ×2 (08:23→20:03)
--- NOTE | 2020-02-20 14:54 | PDOC.HOSPP ---
- Subjective Encounter Date: 02/20/20 Encounter Time: 11:30 Subjective: Patient seen and examined for respiratory failure. Short of breath on minimal exertion. Denies any significant cough, fever or chills. Leg swelling slowly improving. - Objective Vital Signs & Weight: Vital Signs (12 hours) Temp Pulse Resp BP BP Pulse Ox 02/20/20 12:08 179/78 H 02/20/20 12:00 98.5 F 86 15 179/78 H 02/20/20 11:04 90 16 02/20/20 08:23 183/81 H 02/20/20 08:21 183/81 H 02/20/20 07:24 97.9 F 91 16 183/81 H 97 02/20/20 07:10 90 14 02/20/20 03:44 98.1 F 88 20 142/68 H 98 Weight Admit Weight 117 lb Weight 120 lb 4.8 oz I&O: 02/19/20 02/20/20 02/21/20 06:59 06:59 06:59 Intake Total 1300 120 Output Total 3150 600 Balance -1850 -480 Result Diagrams: 02/20/20 04:25 02/20/20 04:25 Additional Labs: Abnormal Lab Results - Last 48 hrs 02/18/20 14:00: B-Natriuretic Peptide 405.3 H 02/18/20 14:00: Lactate Dehydrogenase 274 H 02/18/20 14:00: C-Reactive Protein 0.86 H 02/18/20 14:55: Urine Clarity Turbid A 02/19/20 04:32: Chloride 95 L, Carbon Dioxide 32 H, BUN 31 H, Creatinine 1.18 H, Alkaline Phosphatase 126 H, Albumin 3.3 L, Globulin 4.3 H, Albumin/Globulin Ratio 0.8 L 02/19/20 04:32: WBC 4.7 L, RBC 3.23 L, Hgb 11.4 L, Hct 32.4 L, MCV 100.0 H, MCH 35.2 H, Neutrophils % 81.6 H, Lymphocytes % 16.3 L, Lymphocytes # 0.8 L, Monocytes # 0.1 L 02/19/20 04:32: TSH 3rd Generation 0.3122 L 02/20/20 04:25: Chloride 96 L, Carbon Dioxide 36 H, BUN 29 H, Creatinine 1.18 H, Alkaline Phosphatase 130 H, Globulin 4.4 H, Albumin/Globulin Ratio 0.8 L 02/20/20 04:25: WBC 11.8 H, RBC 3.52 L, Hct 35.2 L, MCV 100.0 H, MCH 34.3 H, Neutrophils % 87.4 H, Lymphocytes % 7.8 L, Neutrophils # 10.3 H, Lymphocytes # 0.9 L, Monocytes # 0.6 H EKG Reviewed by me: Yes (Sinus rhythm on telemetry) Hospitalist ROS - Review of Systems Cardiovascular: reports: edema. denies: chest pain, palpitations, orthopnea, paroxysmal noc. dyspnea, light headedness, other Gastrointestinal: denies: nausea, vomiting, abdominal pain, diarrhea, constipation, melena, hematochezia, other - Medication Medications: Active Medications Generic Name Dose Route Start Last Admin Trade Name Freq PRN Reason Stop Dose Admin Albuterol/Ipratropium 3 ml 02/18/20 22:30 02/20/20 11:04 Ipratropium/Albuterol Sulfate 3 Ml Neb NEB 3 ml [id number] JAYMIE Administration Alprazolam 0.25 mg 02/18/20 15:54 02/19/20 23:36 Alprazolam 0.25 Mg Tab PO 0.25 mg TID PRN Administration Anxiety Amlodipine Besylate 5 mg 02/19/20 21:00 02/19/20 20:47 Amlodipine 5 Mg Tab PO 5 mg HS JAYMIE Administration Apixaban 2.5 mg 02/18/20 21:00 02/20/20 08:23 Apixaban 2.5 Mg Tab PO 2.5 mg BID JAYMIE Administration Atorvastatin Calcium 40 mg 02/18/20 21:00 02/19/20 20:48 Atorvastatin Calcium 40 Mg Tab PO 40 mg HS JAYMIE Administration Azithromycin 500 mg 02/19/20 09:00 02/20/20 08:21 Azithromycin 250 Mg Tab PO 02/25/20 09:01 500 mg DAILY JAYMIE Administration Calcium/Vitamin D 1 tab 02/18/20 17:00 02/20/20 08:22 Calcium Carbonate 600 Mg + Vit D Tab PO 1 tab BID-WM JAYMIE Administration Carvedilol 12.5 mg 02/18/20 21:00 02/20/20 08:23 Carvedilol 6.25 Mg Tab PO 12.5 mg BID JAYMIE Administration Clonidine 0.1 mg 02/18/20 20:02 02/20/20 12:08 Clonidine 0.1 Mg Tab PO 0.1 mg Q4H PRN Administration SBP Greater Than 180 Famotidine 20 mg 02/20/20 09:00 02/20/20 08:21 Famotidine 20 Mg Tab PO 20 mg DAILY JAYMIE Administration Furosemide 20 mg 02/19/20 06:00 02/20/20 05:05 Furosemide 20 Mg/2 Ml Vial SLOW IVP 20 mg 0600,1400 JAYMIE Administration Cefepime HCl 1 gm/ Sodium 100 mls @ 200 mls/hr 02/19/20 04:00 02/20/20 05:04 Chloride IVPB 100 mls 0400,1600 JAYMIE Administration Lisinopril 20 mg 02/20/20 09:00 02/20/20 08:21 Lisinopril 20 Mg Tab PO 20 mg DAILY JAYMIE Administration Methylprednisolone Sodium Succinate 20 mg 02/18/20 22:00 02/20/20 05:06 Methylprednisolone Sod Succ 40 Mg Vial IVP 20 mg Q8HR JAYMIE Administration Mometasone Furoate/Formoterol Fumar 2 puff 02/19/20 06:30 02/20/20 07:08 Mometasone 200 Mcg/Formoterol 5 Mcg 120 Puff Inhaler INH 2 puff BID-RT JAYMIE Administration Multivitamins 1 tab 02/19/20 09:00 02/20/20 08:22 Multivit, Therapeutic 1 Tab PO 1 tab DAILY JAYMIE Administration Polyethylene Glycol 17 gm 02/20/20 09:00 02/20/20 08:22 Polyethylene Glycol 3350 17 Gm Packet PO 17 gm DAILY JAYMIE Administration Senna/Docusate Sodium 1 tab 02/18/20 21:00 02/20/20 08:21 Senokot S 8.6-50 Mg Tab PO 1 tab BID JAYMIE Administration - Exam General Appearance: ill appearing Heart: RRR, no gallops Respiratory: no wheezes, rhonchi Gastrointestinal: soft, non-tender, non-distended Extremities: 1+ LE edema Neurological: no new deficit Hosp A/P - Plan Acute on chronic hypoxic respiratory failure Acute on chronic diastolic heart failure Suspected Pneumonia ?Gram-negative Interstitial fibrosis Paroxysmal atrial fibrillation on anticoagulation Hypertension with hypertensive urgency on admission Hypertensive heart disease Hyperlipidemia History of TIA Anxiety Claustrophobia CKD stage III Mitral regurgitationmoderate Mild to moderate tricuspid regurgitation Plan: Continue IV Lasix 20 mg twice daily. Continue IV cefepime with IV Solu-Medrol. Continue azithromycin. Continue nebulizer treatments. Discontinue aspirin per patient's requestpatient does not take aspirin at home. Lisinopril dose increased to 20 mg daily. Continue carvedilol 12.5 mg twice daily. Continue fluid restriction. A.m. labs. Plan discussed with the daughter Catina and Dr. Grey.
[2020-02-20] MEDS: traMADol HCl 50 MG TAB PO PRN (15:10)
[2020-02-20] MEDS ORDERED: Hydrochlorothiazide 25 MG TAB PO SCH (15:45)
--- NOTE | 2020-02-20 15:54 | CON ---
DATE OF CONSULTATION: 02/20/2020 HISTORY OF PRESENT ILLNESS: Ms. Singleton is feeling better. She is less shortness of breath. She has diuresed. She likely has a component of diastolic dysfunction. Blood pressure has been elevated, but better this morning. It was elevated this afternoon. I did increase her lisinopril this morning to 20 mg one p.o. q.a.m. PHYSICAL EXAMINATION: VITAL SIGNS: Blood pressure 179/78, pulse 86, and temperature afebrile. LUNGS: Fine crackles noted bilaterally. HEART: Regular rate and rhythm. ABDOMEN: Soft, nontender, nondistended. EXTREMITIES: No edema. PERTINENT LABORATORY DATA: Hemoglobin 12.1, hematocrit 35.2, white blood cell count 11.8. IMPRESSION: 1. Diastolic dysfunction. 2. Atrial fibrillation, status post ablation. 3. Pulmonary fibrosis. RECOMMENDATIONS: 1. Recommend aggressive blood pressure management. I have increased her Coreg to 12.5 mg one p.o. t.i.d. and increase to 25 b.i.d. if tolerated. 2. We will continue lisinopril. 3. Consider adding hydrochlorothiazide and/or spironolactone. Can also increase amlodipine if needed 10 mg at bedtime. Job ID: [id number]
[2020-02-20] MEDS ORDERED: Carvedilol 6.25 MG TAB PO SCH ×2 (18:00→21:00)
[2020-02-20] MEDS: Amlodipine 5 MG TAB PO SCH (18:07)
--- NOTE | 2020-02-20 19:05 | PRG ---
DATE OF SERVICE: 02/20/2020 SUBJECTIVE: Juanita Singleton has no new complaints. She is not moving around. She appears to be at her functional baseline. Her blood pressure was mildly elevated earlier, so Physical Therapy did not walk her. It is really imperative if she gets walked even if she has a mild elevation of her blood pressure. OBJECTIVE: VITAL SIGNS: Blood pressure is 184/86 this evening, heart rates in the 70s, respiratory rates in the teens. LUNGS: Remarkable for fine crackles at the bases. HEART: Regular rhythm. ABDOMEN: Soft. LABORATORY DATA: White count 11.8, hemoglobin 12.1, platelets 266. Sodium 130, potassium 3.6, chloride 96, bicarb 36, BUN 29, creatinine 1.18. IMPRESSION: 1. Pulmonary fibrosis. 2. Increased shortness of breath with exertion lately. I would wonder if this was not brought on by elevated blood pressure with exercise. She tells me she has a history of orthostatic hypotension. PLAN: She has not been hypotensive since she has been here. I think her broad antimicrobial therapy can be discontinued. I do not think she needs ongoing cefepime. I also feel that her intravenous steroids can be discontinued. Start her on some prednisone. She can continue with her azithromycin. I really do not feel that she has pneumonia. Job ID: [id number]
[2020-02-20] MEDS: Atorvastatin Calcium 40 MG TAB PO SCH (20:03)
[2020-02-20] MEDS: ALPRAZolam 0.25 MG TAB PO PRN (21:46)
[2020-02-21 04:47] LABS: Anion Gap 13 mmol/L (10-20); BUN (Urea Nitrogen) 31 mg/dL (9.8-20.1); Calc. Creatinine Clearance 33 mL/min (70-130); Calcium 9.1 mg/dL (7.8-10.44); Carbon Dioxide 32 mmol/L (23-31); Chloride 92 mmol/L (98-107); Glucose 107 mg/dL (83-110); Potassium 3.8 mmol/L (3.5-5.1); Sodium 133 mmol/L (136-145)
[2020-02-21] MEDS: Furosemide 20 MG/2 ML VIAL SLOW IVP SCH ×2 (06:18→13:07)
[2020-02-21] MEDS ORDERED: Amlodipine 5 MG TAB PO SCH (06:45)
[2020-02-21] MEDS ORDERED: predniSONE 20 MG TAB PO SCH (08:00)
--- NOTE | 2020-02-21 08:28 | PRG ---
DATE OF SERVICE: 02/21/2020 SUBJECTIVE: Ms. Singleton'carmen blood pressure remains elevated. Again, I was unsure if she is on Coreg 12.5 b.i.d. or 25 b.i.d. I have slowly increased her dose to 12.5 b.i.d. up to 25 b.i.d. today. OBJECTIVE: VITAL SIGNS: Blood pressure 170/79, pulse 73, and temperature 97.4. LUNGS: Fine crackles noted bilaterally. HEART: Regular rate and rhythm. ABDOMEN: Soft, nontender, and nondistended. EXTREMITIES: No edema. PERTINENT LABORATORY DATA: Hemoglobin 12.1, hematocrit 35.2. Creatinine 1.08. TSH 0.3. IMPRESSION: 1. Hypertension. 2. Diastolic dysfunction. 3. Atrial fibrillation, status post ablation. 4. Pulmonary fibrosis. RECOMMENDATIONS: 1. Increase Coreg to 25 b.i.d. 2. Increase Norvasc to 10 mg q.a.m. 3. Hydrochlorothiazide 25 mg one p.o. q.a.m. was added yesterday. We will need to monitor potassium levels. Recommend low-dose potassium prior to discharge if hydrochlorothiazide required. Job ID: [id number]
[2020-02-21] MEDS: Senokot S 8.6-50 MG TAB PO SCH ×2 (08:41→19:29)
[2020-02-21] MEDS: Hydrochlorothiazide 25 MG TAB PO SCH (08:41)
[2020-02-21] MEDS: Multivit, Therapeutic 1 TAB PO SCH (08:41)
[2020-02-21] MEDS: Calcium Carbonate 600 MG + Vit D TAB PO SCH ×2 (08:41→17:00)
[2020-02-21] MEDS: Lisinopril 20 MG TAB PO SCH (08:41)
[2020-02-21] MEDS: Famotidine 20 MG TAB PO SCH (08:42)
[2020-02-21] MEDS: Carvedilol 25 MG TAB PO SCH ×2 (08:42→19:29)
[2020-02-21] MEDS: Apixaban 2.5 MG TAB PO SCH ×2 (08:42→20:42)
[2020-02-21] MEDS: Azithromycin 250 MG TAB PO SCH (08:46)
[2020-02-21] MEDS: Polyethylene Glycol 3350 17 GM Packet PO SCH (08:46)
[2020-02-21] MEDS: ALPRAZolam 0.25 MG TAB PO PRN ×2 (08:46→19:29)
[2020-02-21] MEDS ORDERED: Carvedilol 6.25 MG TAB PO SCH (09:00)
[2020-02-21] MEDS: Mometasone 200 MCG/Formoterol 5 MCG 120 PUFF INHALER INH SCH ×2 (09:47→20:21)
[2020-02-21] MEDS ORDERED: ALPRAZolam 0.25 MG TAB PO SCH (12:30)
--- NOTE | 2020-02-21 13:24 | PRG ---
DATE OF SERVICE: 02/21/2020 SUBJECTIVE: Ms. Singleton feels about the same. She had not ambulated while I saw her this morning. OBJECTIVE: VITAL SIGNS: She is afebrile. Heart rate is in the 60s, respiratory rates in the teens, oximetry is 98% on 3 L, and blood pressure 150/73. LUNGS: Remarkable for fine crackles. HEART: Regular rhythm. ABDOMEN: Soft. IMPRESSION: Pulmonary fibrosis that clinically and radiographically is stable. I do not feel she has pneumonia. I suspect that hypertension and diastolic dysfunction are more of a factor this admission than her primary lung disease. Dr. Grey is adjusting her medications. I have stopped her IV antibiotics. Her prednisone can be tapered quickly over a week to 10 days. If she is still in the hospital Monday, I will see her again. Please call over the weekend if something changes clinically, requiring pulmonary assistance. Job ID: [id number]
--- NOTE | 2020-02-21 14:20 | PDOC.HOSPP ---
- Subjective Encounter Date: 02/21/20 Encounter Time: 08:00 Subjective: Patient seen and examined for respiratory failure/CHF exacerbation. Shortness of breath on minimal exertion. Some dry cough. No fever no chills. - Objective Vital Signs & Weight: Vital Signs (12 hours) Temp Pulse Resp BP BP Pulse Ox 02/21/20 11:37 97.3 F L 68 14 150/73 H 98 02/21/20 09:46 97 17 02/21/20 08:41 170/79 H 02/21/20 07:03 97.4 F L 73 15 170/79 H 99 02/21/20 04:00 97.1 F L 79 21 H 174/81 H 93 L Weight Admit Weight 117 lb Weight 120 lb 6.4 oz I&O: 02/20/20 02/21/20 02/22/20 06:59 06:59 06:59 Intake Total 1300 440 240 Output Total 3150 2150 700 Balance -1850 -1710 -460 Result Diagrams: 02/20/20 04:25 02/21/20 04:00 EKG Reviewed by me: Yes (Sinus rhythm on telemetry) Hospitalist ROS - Review of Systems Respiratory: reports: cough, dry, shortness of breath, SOB with excertion. denies: hemoptysis, pleuritic pain, sputum, wheezing, other Cardiovascular: denies: chest pain, palpitations, orthopnea, paroxysmal noc. dyspnea, edema, light headedness, other Gastrointestinal: denies: nausea, vomiting, abdominal pain, diarrhea, constipation, melena, hematochezia, other - Medication Medications: Active Medications Generic Name Dose Route Start Last Admin Trade Name Braydenq PRN Reason Stop Dose Admin Albuterol/Ipratropium 3 ml 02/18/20 22:30 02/21/20 09:46 Ipratropium/Albuterol Sulfate 3 Ml Neb NEB 3 ml [id number] JAYMIE Administration Alprazolam 0.25 mg 02/21/20 12:30 02/21/20 13:07 Alprazolam 0.25 Mg Tab PO 02/21/20 15:00 0.25 mg NOW JAYMIE Administration Apixaban 2.5 mg 02/18/20 21:00 02/21/20 08:42 Apixaban 2.5 Mg Tab PO 2.5 mg BID JAYMIE Administration Atorvastatin Calcium 40 mg 02/18/20 21:00 02/20/20 20:03 Atorvastatin Calcium 40 Mg Tab PO 40 mg HS JAYMIE Administration Azithromycin 500 mg 02/19/20 09:00 02/21/20 08:46 Azithromycin 250 Mg Tab PO 02/25/20 09:01 500 mg DAILY JAYMIE Administration Calcium/Vitamin D 1 tab 02/18/20 17:00 02/21/20 08:41 Calcium Carbonate 600 Mg + Vit D Tab PO 1 tab BID-WM JAYMIE Administration Carvedilol 25 mg 02/21/20 09:00 02/21/20 08:42 Carvedilol 25 Mg Tab PO 25 mg BID JAYMIE Administration Clonidine 0.1 mg 02/18/20 20:02 02/20/20 12:08 Clonidine 0.1 Mg Tab PO 0.1 mg Q4H PRN Administration SBP Greater Than 180 Famotidine 20 mg 02/20/20 09:00 02/21/20 08:42 Famotidine 20 Mg Tab PO 20 mg DAILY JAYMIE Administration Furosemide 20 mg 02/19/20 06:00 02/21/20 13:07 Furosemide 20 Mg/2 Ml Vial SLOW IVP 20 mg 0600,1400 JAYMIE Administration Hydrochlorothiazide 25 mg 02/21/20 09:00 02/21/20 08:41 Hydrochlorothiazide 25 Mg Tab PO 25 mg DAILY JAYMIE Administration Lisinopril 20 mg 02/20/20 09:00 02/21/20 08:41 Lisinopril 20 Mg Tab PO 20 mg DAILY JAYMIE Administration Mometasone Furoate/Formoterol Fumar 2 puff 02/19/20 06:30 02/21/20 09:47 Mometasone 200 Mcg/Formoterol 5 Mcg 120 Puff Inhaler INH 2 puff BID-RT JAYMIE Administration Multivitamins 1 tab 02/19/20 09:00 02/21/20 08:41 Multivit, Therapeutic 1 Tab PO 1 tab DAILY JAYMIE Administration Polyethylene Glycol 17 gm 02/20/20 09:00 02/21/20 08:46 Polyethylene Glycol 3350 17 Gm Packet PO 17 gm DAILY JAYMIE Administration Senna/Docusate Sodium 1 tab 02/18/20 21:00 02/21/20 08:41 Senokot S 8.6-50 Mg Tab PO 1 tab BID JAYMIE Administration Sterile Water 1 ml 02/18/20 17:00 02/20/20 15:14 Bacteriostatic Water 30 Ml Vial FS 1 ml PRN PRN Administration RECONSTITUTION Tramadol HCl 50 mg 02/19/20 14:07 02/20/20 15:10 Tramadol Hcl 50 Mg Tab PO 50 mg Q6H PRN Administration Moderate Pain (4-6) - Exam General Appearance: ill appearing Heart: RRR, no gallops Respiratory: no wheezes, rhonchi Gastrointestinal: soft, non-distended Extremities: no cyanosis Neurological: no new deficit Hosp A/P - Plan Acute on chronic hypoxic respiratory failure Acute on chronic diastolic heart failure Suspected Pneumonia ?Gram-negativeless likely Pulmonary fibrosis Paroxysmal atrial fibrillation on anticoagulation Hypertension with hypertensive urgency on admission Hypertensive heart disease Hyperlipidemia History of TIA Anxiety Claustrophobia CKD stage III Mitral regurgitationmoderate Mild to moderate tricuspid regurgitation Plan: Continue IV Lasix. Continue azithromycin with oral prednisone. Continue fluid restriction. Case discussed with cardiology Dr. Grey who recommended patient to be transferred to medical. Amlodipine and carvedilol dose increased by cardiology. A.m. labs dose.
[2020-02-21] MEDS: traMADol HCl 50 MG TAB PO PRN (17:57)
[2020-02-21] MEDS: Atorvastatin Calcium 40 MG TAB PO SCH (19:29)
[2020-02-21] MEDS: Amlodipine 10 MG TAB PO SCH (19:29)
[2020-02-21] MEDS: diphenhydrAMINE 50 MG CAP PO SCH (23:42)
[2020-02-22] MEDS: ALPRAZolam 0.25 MG TAB PO PRN ×4 (03:48→20:36)
[2020-02-22 05:11] LABS: BUN (Urea Nitrogen) 38 mg/dL (9.8-20.1); Calc. Creatinine Clearance 30 mL/min (70-130); Calcium 9.7 mg/dL (7.8-10.44); Glucose 94 mg/dL (83-110); Magnesium 2.1 mg/dL (1.6-2.6)
[2020-02-22 05:20] LABS: Anion Gap 19 mmol/L (10-20); Carbon Dioxide 33 mmol/L (23-31); Chloride 87 mmol/L (98-107); Potassium 3.2 mmol/L (3.5-5.1); Sodium 136 mmol/L (136-145)
[2020-02-22] MEDS: Furosemide 20 MG/2 ML VIAL SLOW IVP SCH (06:06)
[2020-02-22] MEDS: Mometasone 200 MCG/Formoterol 5 MCG 120 PUFF INHALER INH SCH ×2 (06:29→19:18)
--- NOTE | 2020-02-22 08:49 | CT ---
CTA ABDOMEN: INDICATIONS: Concern for renal artery stenosis TECHNIQUE: Multiple CTA images were obtained of the abdomen utilizing IV contrast and 3D reformatted imaging. Ax ial, coronal and sagittal reformatted images were constructed from the raw data. FINDINGS: ABDOMEN: Lung bases: There is debris distending the distal esophagus may reflect dysmotility or reflux. There is severe bronchiectasis and interstitial fibrosis involving both lower lobes. There is moderate cardiomegaly. Liver: Diffuse fatty infiltration Gallbladder: Normal appearing. Pancreas: Normal. Adrenal glands: Normal. Spleen: Normal. Kidneys and ureters: The left kidney is atrophic there are multiple small cysts affecting both kidney s. The largest within the superior pole right kidney measures 1.3 cm. There is a renal cortical thinning involving the anterior and mid aspect of the right kidney. Largest cyst within the left kidn ey measures 1.2 cm within the superior pole. Lymph nodes:No lymphadenopathy. Free fluid in abdomen:No free fluid is evident. Small and large bowel: There is a moderate amount of retained stool within the colon. Appendix:Not definitely seen Osseous structures: There is stable prominent wedge compression abnormality of L1. There is a mild we dge compression fracture of L5. These are stable to comparison CT dated 28/10/2019. There is diffuse osteopenia. There is scattered degenerative and osteoarthritic change present. Soft tissues:Normal. VASCULATURE: Aorta: There is moderate to severe atherosclerotic irregularity involving the abdominal aorta without aneurysmal dilatation. Celiac:Normal in caliber without evidence of stenosis or occlusion. SMA:Normal in caliber without evidence of stenosis or occlusion. Renal arteries:There is severe, nearly occlusive atherosclerotic disease involving the origin and pro ximal segment of the left renal artery. There is moderate narrowing involving the origin of the right renal artery. JILLIAN:Normal in caliber without evidence of stenosis or occlusion. Right common iliac artery: Normal in caliber without evidence of stenosis or occlusion. Left common iliac artery: Normal in caliber without evidence of stenosis or occlusion. Additional findings: None. IMPRESSION: 1. Severe, nearly occlusive, partially calcified atherosclerotic plaque involving the origin and prox imal segment of the left renal artery. There is diffuse atrophy of the left kidney likely indicating that this is been a chronic stenosis. 2. Moderate narrowing involving the origin of the right renal artery. 3. Debris filling the distal esophagus may reflect dysmotility or reflux. 4. Severe bronchiectasis and interstitial fibrosis involving both lower lobes.
[2020-02-22] MEDS: Calcium Carbonate 600 MG + Vit D TAB PO SCH ×2 (08:53→17:47)
[2020-02-22] MEDS: Multivit, Therapeutic 1 TAB PO SCH (08:54)
[2020-02-22] MEDS: Senokot S 8.6-50 MG TAB PO SCH ×2 (08:54→19:38)
[2020-02-22] MEDS: Carvedilol 25 MG TAB PO SCH ×2 (08:54→19:38)
[2020-02-22] MEDS: Hydrochlorothiazide 25 MG TAB PO SCH (08:54)
[2020-02-22] MEDS: Lisinopril 20 MG TAB PO SCH (08:54)
[2020-02-22] MEDS: Famotidine 20 MG TAB PO SCH (08:54)
[2020-02-22] MEDS: Azithromycin 250 MG TAB PO SCH (08:54)
[2020-02-22] MEDS: predniSONE 20 MG TAB PO SCH (08:54)
[2020-02-22] MEDS: Polyethylene Glycol 3350 17 GM Packet PO SCH (08:55)
[2020-02-22] MEDS: Apixaban 2.5 MG TAB PO SCH ×2 (09:06→20:36)
--- NOTE | 2020-02-22 11:41 | PDOC.HOSPP ---
- Subjective Encounter Date: 02/22/20 Encounter Time: 11:25 Subjective: breathing better daughter at bedside no new complaints - Objective Vital Signs & Weight: Vital Signs (12 hours) Temp Pulse Resp BP BP Pulse Ox 02/22/20 11:10 97.6 F 74 16 139/72 98 02/22/20 10:30 80 12 02/22/20 08:54 170/79 H 02/22/20 07:54 97.4 F L 74 16 195/91 H 100 02/22/20 06:28 72 16 02/22/20 04:00 97.4 F L 76 20 182/86 H 96 02/21/20 23:53 97.8 F 89 16 143/85 H 98 Weight Admit Weight 117 lb Weight 113 lb 2 oz I&O: 02/21/20 02/22/20 02/23/20 06:59 06:59 06:59 Intake Total 440 1100 Output Total 2150 1000 Balance -1710 100 Result Diagrams: 02/20/20 04:25 02/22/20 04:25 Hospitalist ROS - Medication Medications: Active Medications Generic Name Dose Route Start Last Admin Trade Name Freq PRN Reason Stop Dose Admin Albuterol/Ipratropium 3 ml 02/18/20 22:30 02/22/20 10:30 Ipratropium/Albuterol Sulfate 3 Ml Neb NEB 3 ml [id number] JAYMIE Administration Alprazolam 0.25 mg 02/21/20 12:18 02/22/20 08:58 Alprazolam 0.25 Mg Tab PO 0.25 mg Q6H PRN Administration Anxiety Amlodipine Besylate 10 mg 02/21/20 21:00 02/21/20 19:29 Amlodipine 10 Mg Tab PO 10 mg HS JAYMIE Administration Apixaban 2.5 mg 02/18/20 21:00 02/22/20 09:06 Apixaban 2.5 Mg Tab PO 2.5 mg BID JAYMIE Administration Atorvastatin Calcium 40 mg 02/18/20 21:00 02/21/20 19:29 Atorvastatin Calcium 40 Mg Tab PO 40 mg HS JAYMIE Administration Calcium/Vitamin D 1 tab 02/18/20 17:00 02/22/20 08:53 Calcium Carbonate 600 Mg + Vit D Tab PO 1 tab BID-WM JAYMIE Administration Carvedilol 25 mg 02/21/20 09:00 02/22/20 08:54 Carvedilol 25 Mg Tab PO 25 mg BID JAYMIE Administration Clonidine 0.1 mg 02/18/20 20:02 02/20/20 12:08 Clonidine 0.1 Mg Tab PO 0.1 mg Q4H PRN Administration SBP Greater Than 180 Diphenhydramine HCl 50 mg 02/21/20 22:00 02/21/20 23:42 Diphenhydramine 50 Mg Cap PO Not Given 2200 JAYMIE Famotidine 20 mg 02/20/20 09:00 02/22/20 08:54 Famotidine 20 Mg Tab PO 20 mg DAILY JAYMIE Administration Lisinopril 20 mg 02/20/20 09:00 02/22/20 08:54 Lisinopril 20 Mg Tab PO 20 mg DAILY JAYMIE Administration Mometasone Furoate/Formoterol Fumar 2 puff 02/19/20 06:30 02/22/20 06:29 Mometasone 200 Mcg/Formoterol 5 Mcg 120 Puff Inhaler INH 2 puff BID-RT JAYMIE Administration Multivitamins 1 tab 02/19/20 09:00 02/22/20 08:54 Multivit, Therapeutic 1 Tab PO 1 tab DAILY JAYMIE Administration Polyethylene Glycol 17 gm 02/20/20 09:00 02/22/20 08:55 Polyethylene Glycol 3350 17 Gm Packet PO 17 gm DAILY JAYMIE Administration Prednisone 20 mg 02/22/20 08:00 02/22/20 08:54 Prednisone 20 Mg Tab PO 20 mg QAM-WM JAYMIE Administration Senna/Docusate Sodium 1 tab 02/18/20 21:00 02/22/20 08:54 Senokot S 8.6-50 Mg Tab PO 1 tab BID JAYMIE Administration Sterile Water 1 ml 02/18/20 17:00 02/20/20 15:14 Bacteriostatic Water 30 Ml Vial FS 1 ml PRN PRN Administration RECONSTITUTION Tramadol HCl 50 mg 02/19/20 14:07 02/21/20 17:57 Tramadol Hcl 50 Mg Tab PO 50 mg Q6H PRN Administration Moderate Pain (4-6) - Exam General Appearance: awake alert Eye: PERRL, anicteric sclera ENT: no oropharyngeal lesions, moist mucosa Neck: supple, no JVD Heart: RRR, no murmur Respiratory: no wheezes, rales, rhonchi Gastrointestinal: soft, non-tender, non-distended, normal bowel sounds Extremities: no cyanosis, no edema Neurological: cranial nerve grossly intact, no focal deficits Hosp A/P (1) Acute and chronic respiratory failure with hypoxia Code(s): J96.21 - ACUTE AND CHRONIC RESPIRATORY FAILURE WITH HYPOXIA Status: Acute (2) CHF (congestive heart failure) Code(s): I50.9 - HEART FAILURE, UNSPECIFIED Status: Acute Qualifiers: Heart failure type: diastolic Heart failure chronicity: acute on chronic Qualified Code(s): I50.33 - Acute on chronic diastolic (congestive) heart failure (3) HTN (hypertension) Code(s): I10 - ESSENTIAL (PRIMARY) HYPERTENSION Status: Chronic Qualifiers: Hypertension type: essential hypertension Qualified Code(s): I10 - Essential (primary) hypertension (4) RAFA (acute kidney injury) Code(s): N17.9 - ACUTE KIDNEY FAILURE, UNSPECIFIED Status: Acute (5) Atrial fibrillation with controlled ventricular response Code(s): I48.91 - UNSPECIFIED ATRIAL FIBRILLATION Status: Chronic (6) Idiopathic pulmonary fibrosis Code(s): J84.112 - IDIOPATHIC PULMONARY FIBROSIS Status: Chronic (7) Dyslipidemia Code(s): E78.5 - HYPERLIPIDEMIA, UNSPECIFIED Status: Chronic (8) Seizure disorder Code(s): G40.909 - EPILEPSY, UNSP, NOT INTRACTABLE, WITHOUT STATUS EPILEPTICUS Status: Chronic - Plan is off all antibiotics dc lasix and hctz due to renal dysfunction CT angio abd results noted, has small left kidney with renal art stenosis, right renal moderate stenosis htn meds are being adjusted continue lisinopril, spironolactone, coreg, norvasc, eliquis, lipitor, prednisone, duonebs and dulera inh hemostable awaiting placement watch for renal function PT to mobilize more as tolerated d/w patient and daughter at bedside
[2020-02-22] MEDS: traMADol HCl 50 MG TAB PO PRN ×2 (13:44→20:36)
--- NOTE | 2020-02-22 14:00 | PDOC.CPN ---
- Subjective Date: 02/22/20 Time: 13:10 Interval history: Patient states that nebs make her jittery. Does not want anymore. Also complain of anxiety. BP was down a little this morning. - Review of Systems Respiratory: reports: shortness of breath Cardiovascular: denies: chest pain, palpitation, edema, paroxysmal nocturnal dyspnea, orthopnea Gastrointestinal: denies: nausea, vomiting, diarrhea, constipation, abd pain, GI bleeding Musculoskeletal: denies: pain, tenderness, stiffness, swelling, arthritis/arthralgias Neurological: denies: numbness, syncope, seizure, weakness - Objective Allergies/Adverse Reactions: Allergies Allergy/AdvReac Type Severity Reaction Status Date / Time adhesive Allergy Verified 10/14/19 22:37 adhesive tape Allergy Rash Verified 10/14/19 22:37 Visit Medications: Current Medications Acetaminophen (Acetaminophen 325 Mg Tab) 650 mg PO Q4H PRN PRN Reason: Headache/Fever/Mild Pain (1-3) Alprazolam (Alprazolam 0.25 Mg Tab) 0.25 mg PO Q4H PRN PRN Reason: Anxiety Last Admin: 02/22/20 13:45 Dose: 0.25 mg Documented by: Amlodipine Besylate (Amlodipine 10 Mg Tab) 10 mg PO [facility] Last Admin: 02/21/20 19:29 Dose: 10 mg Documented by: Apixaban (Apixaban 2.5 Mg Tab) 2.5 mg PO BID [facility] Last Admin: 02/22/20 09:06 Dose: 2.5 mg Documented by: Atorvastatin Calcium (Atorvastatin Calcium 40 Mg Tab) 40 mg PO [facility] Last Admin: 02/21/20 19:29 Dose: 40 mg Documented by: Calcium Carbonate (Calcium Carbonate 500 Mg Chewtab) 1,000 mg PO Q4H PRN PRN Reason: Heartburn or Indigestion Calcium/Vitamin D (Calcium Carbonate 600 Mg + Vit D Tab) 1 tab PO BID-[facility] Last Admin: 02/22/20 08:53 Dose: 1 tab Documented by: Carvedilol (Carvedilol 25 Mg Tab) 25 mg PO BID [facility] Last Admin: 02/22/20 08:54 Dose: 25 mg Documented by: Clonidine (Clonidine 0.1 Mg Tab) 0.1 mg PO Q4H PRN PRN Reason: SBP Greater Than 180 Last Admin: 02/20/20 12:08 Dose: 0.1 mg Documented by: Diphenhydramine HCl (Diphenhydramine 50 Mg Cap) 50 mg PO 2200 [facility] Last Admin: 02/21/20 23:42 Dose: Not Given Documented by: Famotidine (Famotidine 20 Mg Tab) 20 mg PO DAILY [facility] Last Admin: 02/22/20 08:54 Dose: 20 mg Documented by: Lisinopril (Lisinopril 20 Mg Tab) 20 mg PO DAILY [facility] Last Admin: 02/22/20 08:54 Dose: 20 mg Documented by: Mometasone Furoate/Formoterol Fumar (Mometasone 200 Mcg/Formoterol 5 Mcg 120 Puff Inhaler) 2 puff INH BID-RT [facility] Last Admin: 02/22/20 06:29 Dose: 2 puff Documented by: Multivitamins (Multivit, Therapeutic 1 Tab) 1 tab PO DAILY [facility] Last Admin: 02/22/20 08:54 Dose: 1 tab Documented by: Nitroglycerin (Nitroglycerin 2% Ointment 1 Inch/1 Gm Packet) 0.5 inch TOP Q8HR PRN PRN Reason: SBP Greater Than 180 Ondansetron HCl (Ondansetron Pf 4 Mg/2 Ml Vial) 4 mg IVP Q6H PRN PRN Reason: Nausea/Vomiting Ondansetron HCl (Ondansetron Odt 4 Mg Tab) 4 mg PO Q6H PRN PRN Reason: Nausea/Vomiting Polyethylene Glycol (Polyethylene Glycol 3350 17 Gm Packet) 17 gm PO DAILY [facility] Last Admin: 02/22/20 08:55 Dose: 17 gm Documented by: Polyethylene Glycol (Polyethylene Glycol 3350 17 Gm Packet) 17 gm PO DAILYPRN PRN PRN Reason: Constipation Prednisone (Prednisone 20 Mg Tab) 20 mg PO [facility] Last Admin: 02/22/20 08:54 Dose: 20 mg Documented by: Senna/Docusate Sodium (Senokot S 8.6-50 Mg Tab) 1 tab PO BID [facility] Last Admin: 02/22/20 08:54 Dose: 1 tab Documented by: Sodium Chloride (Flush - Normal Saline 10 Ml Syringe) 10 ml IVF PRN PRN PRN Reason: Saline Flush Spironolactone (Spironolactone 25 Mg Tab) 25 mg PO [facility] Sterile Water (Bacteriostatic Water 30 Ml Vial) 1 ml FS PRN PRN PRN Reason: RECONSTITUTION Last Admin: 02/20/20 15:14 Dose: 1 ml Documented by: Tramadol HCl (Tramadol Hcl 50 Mg Tab) 50 mg PO Q6H PRN PRN Reason: Moderate Pain (4-6) Last Admin: 02/22/20 13:44 Dose: 50 mg Documented by: Vital Signs & Weight: Vital Signs Temp Pulse Resp BP BP Pulse Ox 02/22/20 11:10 97.6 F 74 16 139/72 98 02/22/20 10:30 80 12 02/22/20 08:54 170/79 H 02/22/20 07:54 97.4 F L 74 16 195/91 H 100 02/22/20 06:28 72 16 02/22/20 04:00 97.4 F L 76 20 182/86 H 96 Admit Weight 117 lb Weight 113 lb 2 oz - Physical Exam General: alert & oriented x3, cachectic HEENT: mucus membranes moist Neck: supple neck Cardiac: regular rate and rhythm, audible murmur Lungs: no wheezes, decreased breath sounds, bibasilar rales Neuro: grossly intact Abdomen: soft Extremities: other: (+ clubbing) - Labs Result Diagrams: 02/20/20 04:25 02/22/20 04:25 Troponin/CKMB Troponin I 0.020 ng/mL (< 0.028) 02/18/20 17:15 - Assessment/Plan Assessment/Plan: 1. HTN Urgency 2. Acute on chronic diastolic CHF 3. Pulmonary Fibrosis 4. Left YAW and atrophic kidney 5. Anxiety Discussed at length with patient and daughter. Will hold nebs. She complains of anxiousness which is driving some her dyspnea and HTN. Will change Xanax to q 4 and advised her to ask for it if needed. Discussed YAW. Would prefer to treat conservatively. Recent BP lower. Could trial nitrates if BP stays elevated . 02/21/2020 RG agree with the above Pt would like to proceed with medical therapy. Pt with left YAW and atrophic kidney which makes stenting left renal artery less efficacious
[2020-02-22] MEDS ORDERED: Iopamidol 370 76% 100 ML VIAL ONE (15:34)
[2020-02-22] MEDS: Atorvastatin Calcium 40 MG TAB PO SCH (19:38)
[2020-02-22] MEDS: Amlodipine 10 MG TAB PO SCH (20:37)
[2020-02-22] MEDS: diphenhydrAMINE 50 MG CAP PO SCH (22:59)
[2020-02-23] MEDS: Mometasone 200 MCG/Formoterol 5 MCG 120 PUFF INHALER INH SCH ×2 (06:15→18:50)
[2020-02-23] MEDS ORDERED: predniSONE 20 MG TAB PO SCH (08:00)
[2020-02-23] MEDS: traMADol HCl 50 MG TAB PO PRN (09:22)
[2020-02-23] MEDS: Famotidine 20 MG TAB PO SCH (09:24)
[2020-02-23] MEDS: Polyethylene Glycol 3350 17 GM Packet PO SCH (09:24)
[2020-02-23] MEDS: Carvedilol 25 MG TAB PO SCH ×2 (09:24→19:50)
[2020-02-23] MEDS: Spironolactone 25 MG TAB PO SCH (09:24)
[2020-02-23] MEDS: ALPRAZolam 0.25 MG TAB PO PRN ×2 (09:24→14:37)
[2020-02-23] MEDS: Apixaban 2.5 MG TAB PO SCH ×2 (09:24→20:36)
[2020-02-23] MEDS: Multivit, Therapeutic 1 TAB PO SCH (09:24)
[2020-02-23] MEDS: predniSONE 20 MG TAB PO SCH (09:25)
[2020-02-23] MEDS: Senokot S 8.6-50 MG TAB PO SCH ×2 (09:25→20:10)
[2020-02-23] MEDS: Lisinopril 20 MG TAB PO SCH (09:25)
[2020-02-23] MEDS: Calcium Carbonate 600 MG + Vit D TAB PO SCH ×2 (09:25→18:20)
--- NOTE | 2020-02-23 13:10 | PDOC.HOSPP ---
- Subjective Encounter Date: 02/23/20 Encounter Time: 12:30 Subjective: no new complaints is on nasal canula O2 - Objective Vital Signs & Weight: Vital Signs (12 hours) Temp Pulse Resp BP BP Pulse Ox 02/23/20 09:25 170/79 H 02/23/20 08:00 98.5 F 67 16 141/67 H 99 Weight Admit Weight 117 lb Weight 112 lb 2 oz I&O: 02/22/20 02/23/20 02/24/20 06:59 06:59 06:59 Intake Total 1100 920 Output Total 1000 1075 Balance 100 -155 Result Diagrams: 02/20/20 04:25 02/22/20 04:25 Hospitalist ROS - Medication Medications: Active Medications Generic Name Dose Route Start Last Admin Trade Name Freq PRN Reason Stop Dose Admin Alprazolam 0.25 mg 02/22/20 13:14 02/23/20 09:24 Alprazolam 0.25 Mg Tab PO 0.25 mg Q4H PRN Administration Anxiety Amlodipine Besylate 10 mg 02/21/20 21:00 02/22/20 20:37 Amlodipine 10 Mg Tab PO Not Given HS JAYMIE Apixaban 2.5 mg 02/18/20 21:00 02/23/20 09:24 Apixaban 2.5 Mg Tab PO 2.5 mg BID JAYMIE Administration Atorvastatin Calcium 40 mg 02/18/20 21:00 02/22/20 19:38 Atorvastatin Calcium 40 Mg Tab PO 40 mg HS JAYMIE Administration Calcium/Vitamin D 1 tab 02/18/20 17:00 02/23/20 09:25 Calcium Carbonate 600 Mg + Vit D Tab PO 1 tab BID-WM JAYMIE Administration Carvedilol 25 mg 02/21/20 09:00 02/23/20 09:24 Carvedilol 25 Mg Tab PO 25 mg BID JAYMIE Administration Clonidine 0.1 mg 02/18/20 20:02 02/20/20 12:08 Clonidine 0.1 Mg Tab PO 0.1 mg Q4H PRN Administration SBP Greater Than 180 Diphenhydramine HCl 50 mg 02/21/20 22:00 02/22/20 22:59 Diphenhydramine 50 Mg Cap PO Not Given 2200 JAYMIE Famotidine 20 mg 02/20/20 09:00 02/23/20 09:24 Famotidine 20 Mg Tab PO 20 mg DAILY JAYMIE Administration Lisinopril 20 mg 02/20/20 09:00 02/23/20 09:25 Lisinopril 20 Mg Tab PO 20 mg DAILY JAYMIE Administration Mometasone Furoate/Formoterol Fumar 2 puff 02/19/20 06:30 02/23/20 06:15 Mometasone 200 Mcg/Formoterol 5 Mcg 120 Puff Inhaler INH 2 puff BID-RT JAYMIE Administration Multivitamins 1 tab 02/19/20 09:00 02/23/20 09:24 Multivit, Therapeutic 1 Tab PO 1 tab DAILY JAYMIE Administration Polyethylene Glycol 17 gm 02/20/20 09:00 02/23/20 09:24 Polyethylene Glycol 3350 17 Gm Packet PO 17 gm DAILY JAYMIE Administration Prednisone 20 mg 02/22/20 08:00 02/23/20 09:25 Prednisone 20 Mg Tab PO 20 mg QAM-WM JAYMIE Administration Senna/Docusate Sodium 1 tab 02/18/20 21:00 02/23/20 09:25 Senokot S 8.6-50 Mg Tab PO Not Given BID JAYMIE Spironolactone 25 mg 02/23/20 08:00 02/23/20 09:24 Spironolactone 25 Mg Tab PO 25 mg QAM-WM JAYMIE Administration Sterile Water 1 ml 02/18/20 17:00 02/20/20 15:14 Bacteriostatic Water 30 Ml Vial FS 1 ml PRN PRN Administration RECONSTITUTION Tramadol HCl 50 mg 02/19/20 14:07 02/23/20 09:22 Tramadol Hcl 50 Mg Tab PO 50 mg Q6H PRN Administration Moderate Pain (4-6) - Exam General Appearance: awake alert Eye: PERRL, anicteric sclera ENT: no oropharyngeal lesions, moist mucosa Neck: supple, no JVD Heart: RRR, no murmur Respiratory: no wheezes, no rales Gastrointestinal: soft, non-tender, non-distended, normal bowel sounds Extremities: no cyanosis, no edema Neurological: cranial nerve grossly intact, no focal deficits Hosp A/P (1) Acute and chronic respiratory failure with hypoxia Code(s): J96.21 - ACUTE AND CHRONIC RESPIRATORY FAILURE WITH HYPOXIA Status: Acute (2) CHF (congestive heart failure) Code(s): I50.9 - HEART FAILURE, UNSPECIFIED Status: Acute Qualifiers: Heart failure type: diastolic Heart failure chronicity: acute on chronic Qualified Code(s): I50.33 - Acute on chronic diastolic (congestive) heart failure (3) HTN (hypertension) Code(s): I10 - ESSENTIAL (PRIMARY) HYPERTENSION Status: Chronic Qualifiers: Hypertension type: essential hypertension Qualified Code(s): I10 - Essential (primary) hypertension (4) RAFA (acute kidney injury) Code(s): N17.9 - ACUTE KIDNEY FAILURE, UNSPECIFIED Status: Acute (5) Atrial fibrillation with controlled ventricular response Code(s): I48.91 - UNSPECIFIED ATRIAL FIBRILLATION Status: Chronic (6) Idiopathic pulmonary fibrosis Code(s): J84.112 - IDIOPATHIC PULMONARY FIBROSIS Status: Chronic (7) Dyslipidemia Code(s): E78.5 - HYPERLIPIDEMIA, UNSPECIFIED Status: Chronic (8) Seizure disorder Code(s): G40.909 - EPILEPSY, UNSP, NOT INTRACTABLE, WITHOUT STATUS EPILEPTICUS Status: Chronic - Plan is off all antibiotics off lasix and hctz due to renal dysfunction CT angio abd results noted, has small left kidney with renal art stenosis, right renal moderate stenosis, for med mgmt. htn meds are being adjusted continue lisinopril, spironolactone, coreg, norvasc, eliquis, lipitor, prednisone, duonebs and dulera inh hemostable awaiting placement, may dc if ready. watch for renal function PT to mobilize more as tolerated d/w patient and daughter at bedside 02/21
[2020-02-23] MEDS: Atorvastatin Calcium 40 MG TAB PO SCH (19:50)
[2020-02-23] MEDS: Amlodipine 10 MG TAB PO SCH (19:50)
[2020-02-23] MEDS: diphenhydrAMINE 50 MG CAP PO SCH (20:36)
[2020-02-24 07:14] LABS: Hemoglobin 12.6 g/dL (12.0-16.0); Mean Corpuscular HGB CONC 32.7 g/dL (32.0-36.0); Mean Corpuscular Volume 97.9 fL (78.0-98.0); Mean Platelet Volume 7.9 fL (7.4-10.4); Platelet Count 257 thou/uL (130-400); RBC Distribution Width 13.2 % (11.5-14.5); Red Blood Cell (RBC) Count 3.94 mill/uL (4.20-5.40); White Blood Cell (WBC) Count 7.6 thou/uL (4.8-10.8)
[2020-02-24 07:28] LABS: BUN (Urea Nitrogen) 58 mg/dL (9.8-20.1); Calc. Creatinine Clearance 20 mL/min (70-130); Calcium 9.5 mg/dL (7.8-10.44); Glucose 88 mg/dL (83-110)
[2020-02-24 08:00] VITALS: TEMP 98.6
[2020-02-24 08:11] LABS: Carbon Dioxide 36 mmol/L (23-31)
[2020-02-24] MEDS: Mometasone 200 MCG/Formoterol 5 MCG 120 PUFF INHALER INH SCH (08:13)
[2020-02-24] MEDS: Multivit, Therapeutic 1 TAB PO SCH (08:53)
[2020-02-24] MEDS: predniSONE 20 MG TAB PO SCH (08:53)
[2020-02-24] MEDS: Senokot S 8.6-50 MG TAB PO SCH (08:53)
[2020-02-24] MEDS: Spironolactone 25 MG TAB PO SCH (08:53)
[2020-02-24] MEDS: Polyethylene Glycol 3350 17 GM Packet PO SCH (08:54)
[2020-02-24] MEDS: ALPRAZolam 0.25 MG TAB PO PRN (08:54)
[2020-02-24] MEDS: Lisinopril 20 MG TAB PO SCH (08:54)
[2020-02-24] MEDS: Calcium Carbonate 600 MG + Vit D TAB PO SCH (08:54)
[2020-02-24] MEDS: Carvedilol 25 MG TAB PO SCH (08:54)
[2020-02-24] MEDS: Famotidine 20 MG TAB PO SCH (08:54)
[2020-02-24] MEDS: traMADol HCl 50 MG TAB PO PRN (08:55)
[2020-02-24 09:47] LABS: Band 1 % (5-11); Eosinophils 7 % (0-10); Lymphocytes 30 % (21-51); MDiff Complete? YES; Monocytes 13 % (0-10); Neutrophil 48 % (42-75); Platelet Morphology Comment Appears Adequate; Polychromasia SLIGHT = 2-3 cells (100X) (0-2/hpf); Reactive Lymphocytes 1 % (0-10)
[2020-02-24] MEDS: Apixaban 2.5 MG TAB PO SCH (10:36)
[2020-02-24 10:39] LABS: Chloride 88 mmol/L (98-107); Potassium 4.4 mmol/L (3.5-5.1); Sodium 134 mmol/L (136-145)
[2020-02-24 10:51] LABS: Anion Gap 14 mmol/L (10-20)
[2020-02-24 11:06] VITALS: BP 144/67
--- NOTE | 2020-02-24 11:37 | PRG ---
DATE OF SERVICE: 02/24/2020 SUBJECTIVE: The patient complained of constipation, otherwise doing well. OBJECTIVE: VITAL SIGNS: Temperature 98.6, pulse 70, respirations 18, sat 98% on 2-1/2 L, blood pressure 144/67. HEENT: Unremarkable. NECK: No adenopathy, JVD. LUNGS: Inspiratory crackles in bases. CARDIAC: S1 and S2, regular. ABDOMEN: Soft. EXTREMITIES: No edema. ASSESSMENT: 1. Idiopathic pulmonary fibrosis - stable. 2. Diastolic heart dysfunction. 3. Constipation. PLAN: Probably stable for discharge. Can follow up in the office as previously scheduled. Job ID: [id number]
--- NOTE | 2020-02-24 16:40 | DIS ---
DATE OF ADMISSION: 02/18/2020 DATE OF DISCHARGE: 02/24/2020 DISCHARGE DISPOSITION: [place] at [facility]. PRIMARY DISCHARGE DIAGNOSES: 1. Acute on chronic respiratory failure with hypoxia. 2. Acute on chronic congestive heart failure exacerbation with diastolic dysfunction. 3. Idiopathic pulmonary fibrosis. 4. Acute kidney injury on admission, resolving. 5. Hypertension. 6. Dyslipidemia. 7. Seizure disorder. 8. Left renal artery stenosis. 9. Right renal artery moderate stenosis. PROCEDURES DONE DURING HOSPITALIZATION: Chest x-ray done on the day of admission showed extensive chronic interstitial lung disease. CT angio of the abdomen done showed severe nearly occlusive partially calcified atherosclerotic plaque involving the origin and proximal segment of the left renal artery. There is diffuse atrophy of the left kidney, likely indicating that this has been a chronic stenosis. Moderate narrowing involving the origin of the right renal artery. Severe bronchiectasis and interstitial fibrosis involving both lower lobes. H and H 12 and 38, platelet count 257, white count of 7.6, BUN 58, creatinine 1.6 on the day of discharge. BNP 405. COVID-19 PCR was not detected on 02/18/2020. DISCHARGE MEDICATION: 1. Multivitamin one tablet once daily. 2. Atorvastatin 40 mg p.o. at bedtime. 3. Fish oil one capsule twice daily. 4. Norvasc 5 mg p.o. at bedtime. 5. Pepcid 20 mg twice daily. 6. Ultram p.r.n. for pain. 7. Vitamin D3 is 2000 units p.o. daily. 8. Xanax 0.25 mg p.o. three times daily p.r.n. 9. Coreg 25 mg twice daily. 10. Dulera inhaler 2 puffs twice daily. 11. Eliquis 2.5 mg twice daily. 12. Lisinopril 2.5 mg daily. 13. MiraLAX 17 g daily. 14. Prednisone 10 mg p.o. daily for 4 days, then half a tablet daily for 4 days, and to discontinue. 15. Albuterol inhaler q.6 hourly p.r.n. 16. Senokot-S one tablet twice daily. ALLERGIES: TO ADHESIVE TAPE. DISCHARGE PLAN: Patient to follow up with Dr. Grey in 10 days. 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 BRIEF COURSE DURING HOSPITALIZATION: Patient initially came to ER on the 17 of February with complaints of shortness of breath. She was diagnosed with acute on chronic diastolic heart failure along with flare up of interstitial lung disease. Patient has had gentle diuresis done. She was also placed on steroids and antibiotics. She has had uncontrolled hypertension. A CT angio of the abdomen done revealed near occlusive renal artery stenosis on the left kidney with significantly small size kidney on the left side. In view of her age and multiple comorbid conditions, the plan was for medical management. Her medications were optimized. Due to contrast and initial diuresis, patient has had acute kidney injury. She will need to have a basic metabolic panel done in 3 days to see for renal function status. She is tolerating oral solid diet and is ambulating a bit with a rolling walker. She needs to work with Physical Therapy and ambulate more. Case Management consultation was requested for placement. Patient has planned to go to [facility] with Home Health. She will be going with interim home health at the [facility]. Please note, I have seen and examined the patient on the day of discharge. Job ID: [id number]
== END 2020-02-24 13:50 | disposition home health service (06) | DRG 196 ==
LOC: ERS 13:19 → ERHOLD 15:44 → 2NO 19:19 → ONC 02-21 18:07
PROVIDERS: ADMIT Internal Medicine; ATTEND Internal Medicine
DX: J84.112 Idiopathic pulmonary fibrosis (principal); J96.01 Acute respiratory failure with hypoxia; I50.33 Acute on chronic diastolic (congestive) heart failure; N17.9 Acute kidney failure, unspecified; I13.0 Hypertensive heart and chronic kidney disease with heart failure and stage 1 through stage 4 chronic kidney disease, or unspecified chronic kidney disease; I16.1 Hypertensive emergency; E78.5 Hyperlipidemia, unspecified; G40.909 Epilepsy, unspecified, not intractable, without status epilepticus; I70.1 Atherosclerosis of renal artery; Z20.828 Contact with and (suspected) exposure to other viral communicable diseases; F41.9 Anxiety disorder, unspecified; F32.9 Major depressive disorder, single episode, unspecified; I48.0 Paroxysmal atrial fibrillation; N18.30 Chronic kidney disease, stage 3 unspecified; I08.1 Rheumatic disorders of both mitral and tricuspid valves; I16.0 Hypertensive urgency; F40.240 Claustrophobia; K59.00 Constipation, unspecified; Z87.891 Personal history of nicotine dependence; Z79.82 Long term (current) use of aspirin; Z79.01 Long term (current) use of anticoagulants; Z79.899 Other long term (current) drug therapy; Z99.81 Dependence on supplemental oxygen; Z86.73 Personal history of transient ischemic attack (TIA), and cerebral infarction without residual deficits; Z90.710 Acquired absence of both cervix and uterus; Z91.048 Other nonmedicinal substance allergy status
CPT/HCPCS: 36415; 71045; 74175; 80048; 80053; 81003; 82533; 82607; 82728; 82746; 83605; 83615; 83735; 83880; 84443; 84484; 85025; 85379; 86140; 93005; 94640; 94664; 94760; 96365; 96375; J0692; J1100; J1940; J2920; J3490; J7512; J7620; Q9967; U0002

== ENCOUNTER 2020-04-17 15:57 | Emergency (ER) | payer MEDICARE | END 2020-04-17 16:02 | disposition E | LOC: ERS 15:57 | DX: I46.9 Cardiac arrest, cause unspecified (principal); I10 Essential (primary) hypertension; E78.5 Hyperlipidemia, unspecified; Z87.891 Personal history of nicotine dependence | CPT/HCPCS: 92950 ==